=== PATIENT | male | born 1955 | race Caucasian/White ===

== ENCOUNTER 2019-06-20 15:01 | Inpatient (IN) | payer OTHER ==
[~2019-06-20] VITALS: Ht 177.8 cm; Wt 88.3 kg
[2019-06-20] MEDS ORDERED: NO HOME MEDS (15:30)
[2019-06-20] MEDS ORDERED: PEG 3350/Na sulf,bicarb,Cl/KCl oral sol 4 liter bottle PO ONE ×2 (15:40→16:40)
[2019-06-20] MEDS ORDERED: normal saline 1000ML IV soln IVB ONE (15:40)
[2019-06-20 16:08] LABS: PARTIAL THROMBOPLASTIN TIME 31 SECONDS (22-32)
[2019-06-20 16:09] LABS: ALANINE AMINOTRANSFERASE 28 U/L (12-78); ALBUMIN 2.8 G/DL (3.4-5.0); ALBUMIN/GLOBULIN RATIO 0.8 (1.1-1.5); ALKALINE PHOSPHATASE 107 IU/L (46-116); ANION GAP 6 (8-16); ASPARTATE AMINO TRANSFERASE 18 U/L (10-37); BILIRUBIN,TOTAL 1.1 MG/DL (0.1-1.0); BLOOD UREA NITROGEN 30 MG/DL (7-18); BUN/CREATININE RATIO 25.4 (5.4-32.0); CALCIUM 8.2 MG/DL (8.5-10.1); CHLORIDE 94 MMOL/L (99-107); CREATININE 1.18 MG/DL (0.60-1.10); GLUCOSE 117 MG/DL (70-104); POTASSIUM 3.6 MMOL/L (3.5-5.1); SODIUM 130 MMOL/L (135-145); TOTAL PROTEIN 6.3 G/DL (6.4-8.2); eGFR 62 ML/MIN
[2019-06-20] MEDS ORDERED: morphine 2 MG/ML inj. syringe IV PRN (16:40)
[2019-06-20] MEDS ORDERED: magnesium 4gm in 100ml NS 100 ML IV PRN (16:40)
[2019-06-20] MEDS ORDERED: magnesium 2GM in 50ml NS 50 ML IV PRN (16:40)
[2019-06-20] MEDS ORDERED: potassium Cl 20 mEq SR tablet PO PRN (16:40)
[2019-06-20] MEDS ORDERED: potassium CL 10mEq/100ml bag 100 ML IV PRN ×2 (16:40)
[2019-06-20] MEDS ORDERED: magnesium Cl slow-release 64mg tablet PO PRN (16:40)
[2019-06-20] MEDS ORDERED: acetaminophen 325mg tablet PO PRN ×2 (16:40)
[2019-06-20 17:50] VITALS: BP 151/88
--- NOTE | 2019-06-20 17:50 | NUR ---
Patient in room ED 6. I have received report from RYAN WALLACE and had the opportunity to ask questions and assume patient care.
--- NOTE | 2019-06-20 18:23 | NUR ---
Problems reprioritized. Patient report given, questions answered & plan of care reviewed with DEBRA WALLACE.
--- NOTE | 2019-06-20 18:29 | NUR ---
Patient in room ED 6. I have received report from Valentino WALLACE and had the opportunity to ask questions and assume patient care.
[2019-06-20] MEDS: normal saline 1000ml 1,000 ML IV SCH (18:57)
[2019-06-20] MEDS: K and/or MAG REPLACEMENT MC SCH (20:00)
[2019-06-20 20:25] LABS: BASOPHILS % (AUTO) 0.4 % (0-1); EOSINOPHILS # (AUTO) 0.1 X10'3 (0-0.9); EOSINOPHILS % (AUTO) 1.9 % (0-6); HEMATOCRIT 53.2 % (42.0-52.0); LYMPHOCYTES # (AUTO) 0.5 X10'3 (1.1-4.8); LYMPHOCYTES % (AUTO) 15.6 % (21-51); MEAN CORPUSCULAR HEMOGLOBIN 33.5 PG (27.0-31.0); MEAN CORPUSCULAR HGB CONC 34.4 g/dL (33.0-36.5); MEAN CORPUSCULAR VOLUME 97.4 FL (78-98); MEAN PLATELET VOLUME 8.3 FL (7.4-10.4); MONOCYTES # (AUTO) 0.9 X10'3 (0-0.9); MONOCYTES % (AUTO) 25.6 % (2-12); NEUTROPHILS % (AUTO) 56.5 % (42-75); PLATELET COUNT 445 X10'3 (140-440); RED BLOOD COUNT 5.46 X10'6 (4.70-6.10); RED CELL DISTRIBUTION WIDTH 12.6 % (11.5-14.5); WHITE BLOOD COUNT 3.5 X10'3 (4.5-11.0)
[2019-06-20 20:37] LABS: HEMOGLOBIN 18.3 g/dl (14.0-17.9)
--- NOTE | 2019-06-20 20:51 | NUR ---
Patient refusing IV fluids at this time.
[2019-06-20] MEDS ORDERED: temazepam 15mg capsule PO PRN (21:00)
[2019-06-20 21:02] LABS: TOTAL CELLS COUNTED 100
[2019-06-20 21:03] LABS: ANISOCYTOSIS 1+; PLATELET ESTIMATE INCREASED
[2019-06-20] MEDS: heparin, porcine 5000 units/ml vial SQ SCH (21:13)
[2019-06-20 22:00] VITALS: BP 150/87
[2019-06-20] MEDS: ondansetron/PF 4mg/2ml inj IV PRN (22:41)
[2019-06-21] VITALS (22 sets, daily range): BP systolic 105–173; BP diastolic 50–101
--- NOTE | 2019-06-21 00:07 | NUR ---
Patient has drank half the bowel prep at this time. Patient very uncomfortable and has only produced very little stool.
[2019-06-21] MEDS ORDERED: morphine 2 MG/ML inj. syringe IV PRN ×2 (01:10→18:15)
--- NOTE | 2019-06-21 01:32 | NUR ---
Received order to place NG tube. Patient refusing tube. Educated on the importance for NG tube. Patient states, "Leave me alone, I would rather just ."
--- NOTE | 2019-06-21 01:40 | NUR ---
Spoke with MD about patient refusing all care.
--- NOTE | 2019-06-21 01:49 | NUR ---
Patient states, "I am in worst shape then I came in." I offered pain medication but patient refusing. Educated on the importance of needing the test done and the NG placed. Patient cussing at staff. Patient states he wants no care or interventions and to be left alone to sleep.
[2019-06-21] MEDS: normal saline 1000ml 1,000 ML IV SCH ×2 (02:36→12:36)
--- NOTE | 2019-06-21 02:56 | NUR ---
Patient refusing to where tele monitor
--- NOTE | 2019-06-21 03:56 | NUR ---
Problems reprioritized. Patient report given, questions answered & plan of care reviewed with Jessica WALLACE.
[2019-06-21 05:16] LABS: BASOPHILS % (AUTO) 0.2 % (0-1); HEMATOCRIT 48.2 % (42.0-52.0); LYMPHOCYTES # (AUTO) 0.6 X10'3 (1.1-4.8); LYMPHOCYTES % (AUTO) 11.7 % (21-51); MEAN CORPUSCULAR HEMOGLOBIN 33.7 PG (27.0-31.0); MEAN CORPUSCULAR HGB CONC 35.2 g/dL (33.0-36.5); MEAN CORPUSCULAR VOLUME 95.8 FL (78-98); MEAN PLATELET VOLUME 7.8 FL (7.4-10.4); MONOCYTES % (AUTO) 21.2 % (2-12); NEUTROPHILS # (AUTO) 3.3 X10'3 (1.8-7.7); NEUTROPHILS % (AUTO) 65.9 % (42-75); PLATELET COUNT 473 X10'3 (140-440); RED BLOOD COUNT 5.03 X10'6 (4.70-6.10); RED CELL DISTRIBUTION WIDTH 12.8 % (11.5-14.5); WHITE BLOOD COUNT 4.9 X10'3 (4.5-11.0)
[2019-06-21 05:21] LABS: ALANINE AMINOTRANSFERASE 24 U/L (12-78); ALBUMIN 2.7 G/DL (3.4-5.0); ALBUMIN/GLOBULIN RATIO 0.8 (1.1-1.5); ALKALINE PHOSPHATASE 97 IU/L (46-116); ANION GAP 6 (8-16); ASPARTATE AMINO TRANSFERASE 19 U/L (10-37); BILIRUBIN,TOTAL 0.8 MG/DL (0.1-1.0); BLOOD UREA NITROGEN 27 MG/DL (7-18); BUN/CREATININE RATIO 24.3 (5.4-32.0); CALCIUM 8.2 MG/DL (8.5-10.1); CHLORIDE 93 MMOL/L (99-107); CREATININE 1.11 MG/DL (0.60-1.10); GLUCOSE 109 MG/DL (70-104); MAGNESIUM 2.3 MG/DL (1.5-2.4); POTASSIUM 3.2 MMOL/L (3.5-5.1); SODIUM 130 MMOL/L (135-145); TOTAL CARBON DIOXIDE 30.6 MMOL/L (24-32); TOTAL PROTEIN 6.2 G/DL (6.4-8.2); eGFR 66 ML/MIN
[2019-06-21 05:53] LABS: ANISOCYTOSIS 1+; PLATELET ESTIMATE INCREASED; TOTAL CELLS COUNTED 100
--- NOTE | 2019-06-21 06:01 | NUR ---
Problems reprioritized. Patient report given, questions answered & plan of care reviewed with dayshift RN.
--- NOTE | 2019-06-21 06:10 | NUR ---
Patient in room ORTHO 4010. I have received report from MADISON Lopez and had the opportunity to ask questions and assume patient care.
[2019-06-21] MEDS: potassium Cl 20 mEq SR tablet PO PRN ×2 (07:45→14:56)
[2019-06-21] MEDS: heparin, porcine 5000 units/ml vial SQ SCH ×2 (07:56→20:00)
[2019-06-21] MEDS: K and/or MAG REPLACEMENT MC SCH ×2 (08:00→20:00)
[2019-06-21] MEDS ORDERED: MIDAZolam 5mg/5ml vial ONE ×2 (08:14→08:52)
[2019-06-21] MEDS ORDERED: fentaNYL/PF 50MCG/1 ML 2ML syringe ONE ×2 (08:14→08:52)
--- NOTE | 2019-06-21 08:30 | NUR ---
Pt transported to colonoscopy via wheelchair.
--- NOTE | 2019-06-21 10:45 | NUR ---
Pt returned from colonoscopy with NG tube in place to left nare. Placement verified by xray prior to return to floor.
[2019-06-21] MEDS ORDERED: ceFOXitin 2GM-NS 100mL ADDvant 100 ML IV ONE (14:10)
[2019-06-21] MEDS ORDERED: cefotetan 2gm/isosm dext IVPB 50 ML IV ONE (14:35)
[2019-06-21] MEDS ORDERED: ceFOXitin sod/dextrose 2g/50ml 50 ML IV ONE (14:45)
--- NOTE | 2019-06-21 15:45 | NUR ---
Pt transported to OR on hospital bed. Belongings left in room 4010B.
[2019-06-21 15:57] LABS: PARTIAL THROMBOPLASTIN TIME 33 SECONDS (22-32)
[2019-06-21] MEDS ORDERED: clindamycin phosphate 150mg/ml inj. ONE (16:23)
[2019-06-21] MEDS ORDERED: gentamicin 40 MG/1 ML inj ONE (16:23)
[2019-06-21] MEDS ORDERED: sevoflurane 250ml liquid IH ONE (16:36)
[2019-06-21] MEDS ORDERED: famotidine/PF 10 mg/ml inj IV ONE (16:36)
[2019-06-21] MEDS ORDERED: midazolam 2 mg/2 ml injection ONE (16:44)
[2019-06-21] MEDS ORDERED: fentaNYL /PF 50mcg/ml 5ml ampule ONE (16:58)
[2019-06-21] MEDS ORDERED: dexamethasone sod phosphate 4mg/ml inj. ONE (17:02)
[2019-06-21] MEDS ORDERED: LIDOcaine 2% (20mg/ml) 5ml vial ONE (17:02)
[2019-06-21] MEDS ORDERED: ondansetron/PF 4mg/2ml inj ONE (17:02)
[2019-06-21] MEDS ORDERED: rocuronium 10mg/ml inj IV ONE ×2 (17:02→18:55)
[2019-06-21] MEDS ORDERED: propofol inj 20 ML IV ONE (17:02)
[2019-06-21] MEDS ORDERED: ceFOXitin 1000 MG inj ONE ×2 (17:02)
[2019-06-21] MEDS ORDERED: BUPIVAcaine/PF 2.5mg/ml (0.25%) 10ml vial ONE (17:12)
[2019-06-21] MEDS ORDERED: BUPIVACAINE liposomal/PF 13.3 MG/ML vial IM ONE (17:12)
[2019-06-21] MEDS ORDERED: ringers solution, lacted 1,000 ML IV SCH (18:13)
[2019-06-21] MEDS ORDERED: ondansetron/PF 4mg/2ml inj IV PRN (18:15)
[2019-06-21] MEDS ORDERED: proCHLORperazine 10 MG/2 ml inj IV PRN (18:15)
[2019-06-21] MEDS ORDERED: hydrALAZINE 20mg/ml inj. IV PRN (18:15)
[2019-06-21] MEDS ORDERED: morphine 4 MG/ML inj SYRINge IV PRN (18:15)
[2019-06-21] MEDS ORDERED: acetaminophen 1,000mg/100ml IV 100 ML IV PRN (18:15)
[2019-06-21] MEDS ORDERED: labetalol 20mg/4ml (5mg/ml) syringe IV PRN (18:15)
[2019-06-21] MEDS ORDERED: meperidine/PF 25mg/ml syringe IV PRN ×3 (18:15)
--- NOTE | 2019-06-21 18:25 | NUR ---
Problems reprioritized. Patient report given, questions answered & plan of care reviewed with MADISON Pritchard.
--- NOTE | 2019-06-21 18:25 | NUR ---
Patient in room ORTHO 4010. I have received report from MADISON Michel and had the opportunity to ask questions and assume patient care.
[2019-06-21] MEDS: propofol 1000mg/100ml bottle 100 ML IV SCH (18:51)
[2019-06-21] MEDS ORDERED: fentaNYL/PF 50MCG/1 ML 2ML syringe IV PRN (18:55)
[2019-06-21] MEDS ORDERED: morphine 10mg/ml inj. ONE (19:49)
[2019-06-21] MEDS ORDERED: DOPamine/D5W 400mg/250ml bag IV ONE (19:50)
--- NOTE | 2019-06-21 20:00 | NUR ---
Received from OR via BED, accompanied by Anesthesiologist DOROTHY and report given by Anesthesiolgist. PT VENTILATED, ETT 23 AT THE LIP. RIJ CVL, L RADIAL ART LINE TRANSDUCED. CXR DONE FOR TUBE AND LINE PLACEMENT, ETT ADJUSTED TO 25 AT THE LIP. NGT TO WALL SX, WATERY LIGHT BROWN OUTPUT. LARGE ABD DSG WITH MEDIFIX TAPE, CDI. RAVEN DRAIN TO ABD FULL OF SEROSANG DRAINAGE. FC PATENT, SCDS ON. VSS. RODRIGUE CARMICHAEL FOR SEDATION, FENTANYL GTT ORDERED.
--- NOTE | 2019-06-21 20:34 | NUR ---
Patient in room CICU 2016. I have received report from MADISON Douglas from OR and had the opportunity to ask questions and assume patient care.
[2019-06-21 20:36] LABS: ABG BASE EXCESS 0.3 mmol/L (-2.0-3.0); ABG HCO3 24.5 mmol/L (22.0-26.0); ABG OXYGEN SATURATION 97.2 % (95-98); ABG PCO2 (T) 41.4 mmHg (35.0-45.0); ABG PH (T) 7.398 (7.350-7.450); ABG PO2 (T) 104.5 mmHg (83-108); FCOHb 0.5 % (0.5-1.5); FMetHb 0.6 % (0.3-1.12); FO2Hb 96.1 % (94-100); PATIENT TEMPERATURE 38.7; PEEP 5 cm H2O; RESPIRATORY RATE 14 b/min; TIDAL VOLUME 600 mL; TOTAL HEMOGLOBIN 16.6 G/dl (14.0-17.9)
--- NOTE | 2019-06-21 20:40 | NUR ---
Report GIVEN to receiving nurse. Transferred CARE TO GUERO WALLACE. Belongings WERE BROUGHT FROM PTS ORTHO ROOM. NO CHANGES, PT STABLE. Special Issues communicated to receiving nurse.
[2019-06-21] MEDS: FENTANYL-0.9 % NACL/PF 100 ML IV PRN (20:41)
--- NOTE | 2019-06-21 21:00 | NUR ---
Laura France, AFTERNOON BABYSITTER at bedside. Made aware of patients low urine output. Will change fluid order and order additional lab tests.
[2019-06-21] MEDS: ringers solution, lacted 1,000 ML IV SCH (21:40)
[2019-06-21 22:20] LABS: ALBUMIN 1.9 G/DL (3.4-5.0); ANION GAP 6 (8-16); BLOOD UREA NITROGEN 26 MG/DL (7-18); BUN/CREATININE RATIO 18.6 (5.4-32.0); CALCIUM 7.3 MG/DL (8.5-10.1); CHLORIDE 98 MMOL/L (99-107); CLARITY,URINE CLOUDY (Clear); COLOR,URINE YELLOW (Yellow); GLUCOSE 111 MG/DL (70-104); GLUCOSE, URINE NEGATIVE (Neg); KETONES,URINE 15 mg/dl (Neg); LEUKOCYTE ESTERASE ,URINE NEGATIVE (Neg); NITRITES, URINE NEGATIVE (Neg); OCCULT BLOOD,URINE LARGE (Neg); POTASSIUM 3.4 MMOL/L (3.5-5.1); PROTEIN,URINE TRACE mg/dl (Neg); SODIUM 133 MMOL/L (135-145); TOTAL CARBON DIOXIDE 28.8 MMOL/L (24-32); eGFR 51 ML/MIN
[2019-06-21 22:27] LABS: UA COLLECTION TYPE NON-SPECIFIED
[2019-06-21 22:34] LABS: BACTERIA,URINE FEW /HPF (Neg); CAL OXALATE CRYSTALS 1+ /HPF (NEGATIVE); RBC,URINE 20-50 /HPF (0-2); SQUAMOUS EPITHELIAL CELL,UR FEW /LPF (FEW); WBC,URINE 0-4 /HPF (0-4)
[2019-06-21] MEDS: potassium Cl 20mEq/100mL bag 100 ML IV PRN (23:37)
--- NOTE | 2019-06-21 23:45 | NUR ---
Low urine output. Laura France NP made aware. She will place order for Albumin.
[2019-06-21] MEDS: piperacillin/tazo 3.375gm/50ml 50 ML IV SCH (23:47)
[2019-06-22] VITALS (24 sets, daily range): BP systolic 75–127; BP diastolic 42–88
[2019-06-22] MEDS: albumin (Human) 5% 250ml 250 ML IV ONE ×2 (00:15→01:29)
[2019-06-22] MEDS: propofol 1000mg/100ml bottle 100 ML IV SCH ×2 (00:16→13:33)
[2019-06-22] MEDS: potassium Cl 20mEq/100mL bag 100 ML IV PRN (00:55)
[2019-06-22 02:59] LABS: BASOPHILS % (AUTO) 0.1 % (0-1); EOSINOPHILS % (AUTO) 0.1 % (0-6); HEMATOCRIT 45.3 % (42.0-52.0); HEMOGLOBIN 15.5 g/dl (14.0-17.9); LYMPHOCYTES # (AUTO) 0.4 X10'3 (1.1-4.8); LYMPHOCYTES % (AUTO) 5.8 % (21-51); MEAN CORPUSCULAR HEMOGLOBIN 33.2 PG (27.0-31.0); MEAN CORPUSCULAR HGB CONC 34.2 g/dL (33.0-36.5); MEAN CORPUSCULAR VOLUME 96.9 FL (78-98); MEAN PLATELET VOLUME 7.7 FL (7.4-10.4); MONOCYTES # (AUTO) 0.4 X10'3 (0-0.9); MONOCYTES % (AUTO) 5.8 % (2-12); NEUTROPHILS # (AUTO) 6.4 X10'3 (1.8-7.7); NEUTROPHILS % (AUTO) 88.2 % (42-75); PLATELET COUNT 343 X10'3 (140-440); RED BLOOD COUNT 4.67 X10'6 (4.70-6.10); RED CELL DISTRIBUTION WIDTH 12.6 % (11.5-14.5); WHITE BLOOD COUNT 7.2 X10'3 (4.5-11.0)
[2019-06-22 03:16] LABS: ALANINE AMINOTRANSFERASE 18 U/L (12-78); ALBUMIN/GLOBULIN RATIO 0.8 (1.1-1.5); ALKALINE PHOSPHATASE 64 IU/L (46-116); ANION GAP 7 (8-16); BILIRUBIN,TOTAL 0.7 MG/DL (0.1-1.0); BLOOD UREA NITROGEN 29 MG/DL (7-18); BUN/CREATININE RATIO 17.1 (5.4-32.0); CALCIUM 7.2 MG/DL (8.5-10.1); CHLORIDE 100 MMOL/L (99-107); GLUCOSE 110 MG/DL (70-104); POTASSIUM 4.4 MMOL/L (3.5-5.1); SODIUM 134 MMOL/L (135-145); TOTAL CARBON DIOXIDE 26.6 MMOL/L (24-32); TOTAL PROTEIN 4.6 G/DL (6.4-8.2); TRIGLYCERIDES 101 MG/DL (20-135); eGFR 41 ML/MIN
[2019-06-22 03:21] LABS: ABG BASE EXCESS 0.1 mmol/L (-2.0-3.0); ABG OXYGEN SATURATION 98.5 % (95-98); ABG PCO2 (T) 38.1 mmHg (35.0-45.0); ABG PO2 (T) 119.1 mmHg (83-108); FCOHb 0.5 % (0.5-1.5); FMetHb 0.5 % (0.3-1.12); FO2Hb 97.5 % (94-100); PATIENT TEMPERATURE 37.6; PEEP 5 cm H2O; RESPIRATORY RATE 14 b/min; TIDAL VOLUME 600 mL; TOTAL HEMOGLOBIN 15.8 G/dl (14.0-17.9)
[2019-06-22 03:41] LABS: ASPARTATE AMINO TRANSFERASE 18 U/L (10-37)
--- NOTE | 2019-06-22 04:00 | NUR ---
Enoc France NP spoke with Dr. Fernandez re patients low urine output. Per Dr. Fernandez no change in orders at this time. Current lab values reviewed by MD and provider. Will continue to monitor.
[2019-06-22 04:01] LABS: ANISOCYTOSIS 1+; PLATELET ESTIMATE NORMAL; TOTAL CELLS COUNTED 100
[2019-06-22] MEDS: ringers solution, lacted 1,000 ML IV SCH ×3 (05:44→20:25)
--- NOTE | 2019-06-22 06:00 | NUR ---
[id number]: Patient able to wake up with light sedation, following commands, nods head yes and no. Surgical dressing remains clean dry and intact throughout shift. RAVEN patent and draining.
--- NOTE | 2019-06-22 06:38 | NUR ---
Problems reprioritized. Patient report given, questions answered & plan of care reviewed with MADISON Medina.
--- NOTE | 2019-06-22 06:49 | NUR ---
[facility] I have received report from Fatemeh WALLACE and had the opportunity to ask questions and assume patient care. Addendum: 06/22/19 at 0649 by Carol Garcia RN Amended: Links added.
[2019-06-22] MEDS: pantoprazole 40 MG vial IV SCH (07:25)
[2019-06-22] MEDS: lisinopril 10 MG tablet PO SCH (07:25)
[2019-06-22] MEDS: piperacillin/tazo 3.375gm/50ml 50 ML IV SCH ×2 (07:28→15:55)
[2019-06-22] MEDS: K and/or MAG REPLACEMENT MC SCH ×2 (07:33→20:00)
[2019-06-22] MEDS: FENTANYL-0.9 % NACL/PF 100 ML IV PRN ×2 (07:58→23:19)
--- NOTE | 2019-06-22 09:32 | NUR ---
ETT advanced 3 cm by RT Veronica per Dr. Fernandez's request.
--- NOTE | 2019-06-22 10:36 | NUR ---
Urine for cx and blood for PSA obtained per Dr. Fernandez's order.
--- NOTE | 2019-06-22 13:13 | NUR ---
Initial: Pt intubated admit DX bowel obstruction r/t sigmoid colon mass, hyponatremia hx N/V. Pt NPO s/p ex lap, Right, Left, and Sigmoid colectomy w/ resection of sigmoid mass. DX large bowel obstruction w/ cecal bascule, cecal ischemia, and SBO per surgeon. To remain NPO for return to OR per RN. L NG remains to suction 300ml output so far. LBM 06/19. Receiving electrolyte replacements per protocol. Will monitor for nutrition support needs post-op; if to remain intubated and prolonged NPO may benefit from PN post-op. EN recs below; current wt pt stated and will require scaled wt for accurate nutrition support recs. Will continue to monitor. Rec: 1. IF prolonged NPO without EN; may benefit from PN post-op 2. IF EN post-op; Vital HP at 95ml/hr goal; adjust pending scaled wt results 3. IF EN; PALB Q /; daily wts 4. upon extubation; advance diet as medically indicated to low-residue Addendum: 06/22/19 at [address] Amended: Links added.
--- NOTE | 2019-06-22 14:30 | NUR ---
Pt. awake and alert. Nodding "yes" to pain. Wants to write and communicate. BP low, 70s-80s systolic. Notified charge nurse and Sophia NAVARRO as RN is not able to adequately sedate pt. or provide adequate pain control.
[2019-06-22] MEDS ORDERED: FENTANYL-0.9 % NACL/PF 100 ML IV PRN (14:39)
[2019-06-22] MEDS ORDERED: normal saline 1000ml 1,000 ML IV ONE (14:40)
[2019-06-22] MEDS ORDERED: acetaminophen 1,000mg/100ml IV 100 ML IV ONE (14:50)
[2019-06-22] MEDS: midazolam 100mg in NS 100ml 100 ML IV PRN (15:10)
--- NOTE | 2019-06-22 15:18 | NUR ---
IV Tylenol and 1L fluid bolus infusing for temp 38.1, CVP of 3, and low BP. Propofol dc'd. Versed infusing now.
--- NOTE | 2019-06-22 17:32 | NUR ---
Pt. is third case tomorrow for OR per Nursing Supervisoe Ashlee.
--- NOTE | 2019-06-22 18:20 | NUR ---
Patient in room CICU 2016. I have received report from MADISON Medina and had the opportunity to ask questions and assume patient care.
--- NOTE | 2019-06-22 19:30 | NUR ---
Addressed patients hypotension with Enoc France NP. CVP 7 BP running 79/51 (61) via art line. At times Map in the 50's. Patient received 1 liter fluid bolus at 1500 today. Order for Stat BMP. Will continue to monitor.
[2019-06-22 21:00] LABS: ALBUMIN 1.4 G/DL (3.4-5.0); ANION GAP 6 (8-16); BLOOD UREA NITROGEN 29 MG/DL (7-18); BUN/CREATININE RATIO 18.1 (5.4-32.0); CALCIUM 7.1 MG/DL (8.5-10.1); CHLORIDE 102 MMOL/L (99-107); GLUCOSE 124 MG/DL (70-104); POTASSIUM 4.1 MMOL/L (3.5-5.1); SODIUM 135 MMOL/L (135-145); TOTAL CARBON DIOXIDE 26.9 MMOL/L (24-32); eGFR 43 ML/MIN
[2019-06-22] MEDS: mineral oil/petrolatum ophthal oint EACHEYE SCH (21:40)
[2019-06-23] VITALS (23 sets, daily range): BP systolic 80–118; BP diastolic 46–63
[2019-06-23] MEDS: piperacillin/tazo 3.375gm/50ml 50 ML IV SCH ×3 (00:10→16:06)
[2019-06-23] MEDS: mineral oil/petrolatum ophthal oint EACHEYE SCH ×4 (02:00→20:05)
[2019-06-23 03:15] LABS: ABG BASE EXCESS 1.3 mmol/L (-2.0-3.0); ABG HCO3 24.9 mmol/L (22.0-26.0); ABG OXYGEN SATURATION 97.9 % (95-98); ABG PCO2 (T) 37.7 mmHg (35.0-45.0); ABG PH (T) 7.441 (7.350-7.450); FCOHb 0.2 % (0.5-1.5); FMetHb 0.3 % (0.3-1.12); FO2Hb 97.4 % (94-100); PATIENT TEMPERATURE 37.9; PEEP 5 cm H2O; RESPIRATORY RATE 14 b/min; TIDAL VOLUME 600 mL; TOTAL HEMOGLOBIN 14.1 G/dl (14.0-17.9)
[2019-06-23 03:35] LABS: BASOPHILS % (AUTO) 0 % (0-1); EOSINOPHILS % (AUTO) 0.2 % (0-6); HEMOGLOBIN 13.5 g/dl (14.0-17.9); LYMPHOCYTES # (AUTO) 0.4 X10'3 (1.1-4.8); LYMPHOCYTES % (AUTO) 5.2 % (21-51); MEAN CORPUSCULAR HEMOGLOBIN 33.1 PG (27.0-31.0); MEAN CORPUSCULAR HGB CONC 33.8 g/dL (33.0-36.5); MEAN CORPUSCULAR VOLUME 97.9 FL (78-98); MEAN PLATELET VOLUME 8.1 FL (7.4-10.4); MONOCYTES # (AUTO) 0.6 X10'3 (0-0.9); MONOCYTES % (AUTO) 9.5 % (2-12); NEUTROPHILS # (AUTO) 5.8 X10'3 (1.8-7.7); NEUTROPHILS % (AUTO) 85.1 % (42-75); PLATELET COUNT 308 X10'3 (140-440); RED BLOOD COUNT 4.09 X10'6 (4.70-6.10); RED CELL DISTRIBUTION WIDTH 12.9 % (11.5-14.5); WHITE BLOOD COUNT 6.9 X10'3 (4.5-11.0)
[2019-06-23 03:54] LABS: ALANINE AMINOTRANSFERASE 15 U/L (12-78); ALBUMIN 1.4 G/DL (3.4-5.0); ALBUMIN/GLOBULIN RATIO 0.5 (1.1-1.5); ALKALINE PHOSPHATASE 59 IU/L (46-116); ANION GAP 5 (8-16); ASPARTATE AMINO TRANSFERASE 17 U/L (10-37); BILIRUBIN,TOTAL 0.5 MG/DL (0.1-1.0); BLOOD UREA NITROGEN 28 MG/DL (7-18); BUN/CREATININE RATIO 21.9 (5.4-32.0); CALCIUM 7.3 MG/DL (8.5-10.1); CHLORIDE 102 MMOL/L (99-107); CREATININE 1.28 MG/DL (0.60-1.10); GLUCOSE 119 MG/DL (70-104); MAGNESIUM 2.4 MG/DL (1.5-2.4); POTASSIUM 3.7 MMOL/L (3.5-5.1); SODIUM 135 MMOL/L (135-145); TOTAL CARBON DIOXIDE 28.1 MMOL/L (24-32); TOTAL PROTEIN 4.2 G/DL (6.4-8.2); eGFR 56 ML/MIN
[2019-06-23] MEDS: ringers solution, lacted 1,000 ML IV SCH ×3 (04:01→15:16)
[2019-06-23 04:21] LABS: ANISOCYTOSIS 1+; PLATELET ESTIMATE NORMAL; TOTAL CELLS COUNTED 100
--- NOTE | 2019-06-23 05:00 | NUR ---
Arterial line with flat waveform, attempted to reposition, unable to regain waveform. Line pulled, catheter tip intact. Pressure applied.
--- NOTE | 2019-06-23 06:29 | NUR ---
Problems reprioritized. Patient report given, questions answered & plan of care reviewed with MADISON Medina.
--- NOTE | 2019-06-23 06:33 | NUR ---
[facility] I have received report from Fatemeh WALLACE and had the opportunity to ask questions and assume patient care. Addendum: 06/23/19 at 0633 by Carol Garcia RN Amended: Links added.
[2019-06-23] MEDS: pantoprazole 40 MG vial IV SCH (07:56)
[2019-06-23] MEDS: K and/or MAG REPLACEMENT MC SCH ×2 (07:57→20:00)
[2019-06-23] MEDS: lisinopril 10 MG tablet PO SCH (07:57)
[2019-06-23] MEDS: heparin, porcine 5000 units/ml vial SQ SCH ×2 (07:57→20:05)
[2019-06-23] MEDS: midazolam 100mg in NS 100ml 100 ML IV PRN (10:41)
[2019-06-23] MEDS ORDERED: gentamicin 40 MG/1 ML inj ONE (11:24)
[2019-06-23] MEDS ORDERED: sevoflurane 250ml liquid IH ONE (11:25)
[2019-06-23] MEDS ORDERED: clindamycin phosphate 150mg/ml inj. ONE (11:25)
[2019-06-23] MEDS ORDERED: albumin (Human) 5% 250ml 250 ML IV ONE ×2 (11:49→12:12)
[2019-06-23] MEDS ORDERED: rocuronium 10mg/ml inj IV ONE ×2 (12:02→12:42)
[2019-06-23] MEDS ORDERED: fentaNYL /PF 50mcg/ml 5ml ampule ONE (12:03)
[2019-06-23] MEDS ORDERED: MIDAZolam 5mg/5ml vial ONE (12:03)
--- NOTE | 2019-06-23 14:30 | NUR ---
Back from OR.
--- NOTE | 2019-06-23 15:40 | NUR ---
Pt. has colostomy and mucous fistula present. RAVEN still present.
--- NOTE | 2019-06-23 15:57 | NUR ---
Dr. Fernandez notified of increased temp of 38.2. No new orders received.
[2019-06-23 16:35] LABS: ABG BASE EXCESS 1.8 mmol/L (-2.0-3.0); ABG HCO3 25.2 mmol/L (22.0-26.0); ABG OXYGEN SATURATION 96.1 % (95-98); ABG PCO2 (T) 37.2 mmHg (35.0-45.0); ABG PH (T) 7.452 (7.350-7.450); ABG PO2 (T) 84.1 mmHg (83-108); FCOHb 0.6 % (0.5-1.5); FMetHb 0.3 % (0.3-1.12); FO2Hb 95.2 % (94-100); TOTAL HEMOGLOBIN 14.1 G/dl (14.0-17.9)
[2019-06-23] MEDS: FENTANYL-0.9 % NACL/PF 100 ML IV PRN (16:48)
--- NOTE | 2019-06-23 18:11 | NUR ---
Problems reprioritized. Patient report given, questions answered & plan of care reviewed with Erna WALLACE.
--- NOTE | 2019-06-23 18:30 | NUR ---
Patient in room CICU 2016. I have received report from Carol WALLACE and had the opportunity to ask questions and assume patient care.
[2019-06-24] VITALS (24 sets, daily range): BP systolic 92–124; BP diastolic 50–70
[2019-06-24] MEDS: piperacillin/tazo 3.375gm/50ml 50 ML IV SCH ×4 (00:03→23:52)
[2019-06-24] MEDS: mineral oil/petrolatum ophthal oint EACHEYE SCH ×4 (02:40→19:25)
[2019-06-24 03:00] LABS: BASOPHILS % (AUTO) 0.2 % (0-1); EOSINOPHILS % (AUTO) 0.4 % (0-6); HEMATOCRIT 41.5 % (42.0-52.0); HEMOGLOBIN 13.8 g/dl (14.0-17.9); LYMPHOCYTES # (AUTO) 0.6 X10'3 (1.1-4.8); LYMPHOCYTES % (AUTO) 7.5 % (21-51); MEAN CORPUSCULAR HEMOGLOBIN 32.9 PG (27.0-31.0); MEAN CORPUSCULAR HGB CONC 33.3 g/dL (33.0-36.5); MEAN CORPUSCULAR VOLUME 98.7 FL (78-98); MEAN PLATELET VOLUME 8.1 FL (7.4-10.4); MONOCYTES # (AUTO) 0.8 X10'3 (0-0.9); MONOCYTES % (AUTO) 10.4 % (2-12); NEUTROPHILS % (AUTO) 81.5 % (42-75); PLATELET COUNT 272 X10'3 (140-440); RED BLOOD COUNT 4.21 X10'6 (4.70-6.10); RED CELL DISTRIBUTION WIDTH 13.1 % (11.5-14.5); WHITE BLOOD COUNT 7.3 X10'3 (4.5-11.0)
[2019-06-24 03:13] LABS: ALANINE AMINOTRANSFERASE 13 U/L (12-78); ALBUMIN 1.3 G/DL (3.4-5.0); ALBUMIN/GLOBULIN RATIO 0.5 (1.1-1.5); ALKALINE PHOSPHATASE 55 IU/L (46-116); ANION GAP 3 (8-16); ASPARTATE AMINO TRANSFERASE 18 U/L (10-37); BILIRUBIN,TOTAL 0.4 MG/DL (0.1-1.0); BLOOD UREA NITROGEN 21 MG/DL (7-18); BUN/CREATININE RATIO 19.1 (5.4-32.0); CALCIUM 7.3 MG/DL (8.5-10.1); CHLORIDE 105 MMOL/L (99-107); GLUCOSE 104 MG/DL (70-104); MAGNESIUM 2.4 MG/DL (1.5-2.4); POTASSIUM 3.7 MMOL/L (3.5-5.1); SODIUM 136 MMOL/L (135-145); TOTAL CARBON DIOXIDE 27.6 MMOL/L (24-32); TOTAL PROTEIN 4.1 G/DL (6.4-8.2); eGFR 67 ML/MIN
[2019-06-24 03:31] LABS: ABG BASE EXCESS 1.7 mmol/L (-2.0-3.0); ABG HCO3 24.8 mmol/L (22.0-26.0); ABG OXYGEN SATURATION 96.8 % (95-98); ABG PCO2 (T) 36.1 mmHg (35.0-45.0); ABG PH (T) 7.459 (7.350-7.450); ABG PO2 (T) 91.3 mmHg (83-108); FCOHb 0.3 % (0.5-1.5); FMetHb 0.2 % (0.3-1.12); FO2Hb 96.3 % (94-100); PATIENT TEMPERATURE 38.2; TOTAL HEMOGLOBIN 14.3 G/dl (14.0-17.9)
[2019-06-24 03:59] LABS: TOTAL CELLS COUNTED 100
[2019-06-24 04:00] LABS: PLATELET ESTIMATE NORMAL
[2019-06-24] MEDS: ringers solution, lacted 1,000 ML IV SCH ×4 (05:59→23:52)
--- NOTE | 2019-06-24 06:46 | NUR ---
[facility]. I have received report from Monique WALLACE and had the opportunity to ask questions and assume patient care. Addendum: 06/24/19 at 0646 by Carol Garcia RN Amended: Links added.
[2019-06-24] MEDS: pantoprazole 40 MG vial IV SCH (07:26)
[2019-06-24] MEDS: heparin, porcine 5000 units/ml vial SQ SCH ×2 (07:26→19:25)
[2019-06-24] MEDS: K and/or MAG REPLACEMENT MC SCH ×2 (07:27→19:19)
[2019-06-24] MEDS: lisinopril 10 MG tablet PO SCH (07:27)
--- NOTE | 2019-06-24 10:51 | NUR ---
WOC RN here to assess pt. as RN ordered a WOC consult for new ostomies as per protocol.
[2019-06-24 13:11] LABS: PSA, FREE 0.03 ng/mL
--- NOTE | 2019-06-24 13:19 | NUR ---
Dr. Cuellar in to see pt. PT order obtained.
--- NOTE | 2019-06-24 14:16 | NUR ---
Dr. Fernandez in to see pt.
--- NOTE | 2019-06-24 17:58 | NUR ---
Versed has been off since approx. 0730 this morning. Pt has not woken up. Does move all extremities. VSS.
[2019-06-24] MEDS: lactobacillus rhamnosus 10,000 MMU CELLS/CAPSULE PO SCH (19:20)
[2019-06-24] MEDS: FENTANYL-0.9 % NACL/PF 100 ML IV PRN (19:25)
[2019-06-25] VITALS (21 sets, daily range): BP systolic 94–148; BP diastolic 49–68
[2019-06-25] MEDS: mineral oil/petrolatum ophthal oint EACHEYE SCH ×4 (02:08→20:55)
[2019-06-25 02:47] LABS: BASOPHILS % (AUTO) 0.1 % (0-1); EOSINOPHILS # (AUTO) 0.1 X10'3 (0-0.9); EOSINOPHILS % (AUTO) 1.2 % (0-6); HEMATOCRIT 39.5 % (42.0-52.0); HEMOGLOBIN 13.3 g/dl (14.0-17.9); LYMPHOCYTES # (AUTO) 0.8 X10'3 (1.1-4.8); LYMPHOCYTES % (AUTO) 8.5 % (21-51); MEAN CORPUSCULAR HEMOGLOBIN 33.4 PG (27.0-31.0); MEAN CORPUSCULAR HGB CONC 33.8 g/dL (33.0-36.5); MEAN CORPUSCULAR VOLUME 98.8 FL (78-98); MEAN PLATELET VOLUME 8.2 FL (7.4-10.4); MONOCYTES # (AUTO) 0.9 X10'3 (0-0.9); NEUTROPHILS # (AUTO) 7.6 X10'3 (1.8-7.7); NEUTROPHILS % (AUTO) 80.2 % (42-75); PLATELET COUNT 303 X10'3 (140-440); RED CELL DISTRIBUTION WIDTH 13.3 % (11.5-14.5); WHITE BLOOD COUNT 9.4 X10'3 (4.5-11.0)
[2019-06-25 03:03] LABS: ALANINE AMINOTRANSFERASE 14 U/L (12-78); ALBUMIN 1.1 G/DL (3.4-5.0); ALBUMIN/GLOBULIN RATIO 0.3 (1.1-1.5); ALKALINE PHOSPHATASE 59 IU/L (46-116); ANION GAP 7 (8-16); ASPARTATE AMINO TRANSFERASE 21 U/L (10-37); BILIRUBIN,TOTAL 0.4 MG/DL (0.1-1.0); BLOOD UREA NITROGEN 25 MG/DL (7-18); BUN/CREATININE RATIO 25.5 (5.4-32.0); CALCIUM 7.3 MG/DL (8.5-10.1); CHLORIDE 105 MMOL/L (99-107); CREATININE 0.98 MG/DL (0.60-1.10); GLUCOSE 102 MG/DL (70-104); MAGNESIUM 2.4 MG/DL (1.5-2.4); POTASSIUM 3.3 MMOL/L (3.5-5.1); SODIUM 138 MMOL/L (135-145); TOTAL CARBON DIOXIDE 25.9 MMOL/L (24-32); TOTAL PROTEIN 4.3 G/DL (6.4-8.2); eGFR 77 ML/MIN
[2019-06-25 03:26] LABS: ABG BASE EXCESS 0.4 mmol/L (-2.0-3.0); ABG HCO3 23.5 mmol/L (22.0-26.0); ABG OXYGEN SATURATION 97.3 % (95-98); ABG PH (T) 7.458 (7.350-7.450); ABG PO2 (T) 96.1 mmHg (83-108); FCOHb 0.3 % (0.5-1.5); FMetHb 0.1 % (0.3-1.12); FO2Hb 96.9 % (94-100); PATIENT TEMPERATURE 37.5; TOTAL HEMOGLOBIN 13.8 G/dl (14.0-17.9)
[2019-06-25] MEDS: potassium Cl 20mEq/100mL bag 100 ML IV PRN ×4 (03:41→23:19)
[2019-06-25] MEDS: heparin, porcine 5000 units/ml vial SQ SCH ×2 (07:33→20:56)
[2019-06-25] MEDS: pantoprazole 40 MG vial IV SCH (07:34)
[2019-06-25] MEDS: lactobacillus rhamnosus 10,000 MMU CELLS/CAPSULE PO SCH ×2 (07:34→19:43)
[2019-06-25] MEDS: piperacillin/tazo 3.375gm/50ml 50 ML IV SCH ×3 (07:34→23:20)
[2019-06-25] MEDS: lisinopril 10 MG tablet PO SCH (07:34)
[2019-06-25] MEDS: K and/or MAG REPLACEMENT MC SCH ×2 (07:43→19:44)
[2019-06-25] MEDS: ringers solution, lacted 1,000 ML IV SCH ×2 (11:11→20:54)
--- NOTE | 2019-06-25 12:06 | NUR ---
Pt worked with pt and he is in a sitting position in his bed. Also, unable to draw blood from his central line. Lab notified.
[2019-06-25] MEDS ORDERED: furosemide 40mg/4ml inj IV ONE (13:30)
--- NOTE | 2019-06-25 15:27 | NUR ---
TPN consult. Patient intubated, sedated, has hypoactive bowel sounds, no flatus, no BM s/p s/p ex lap, Right, Left, and Sigmoid colectomy w/ resection of sigmoid mass d/t large bowel obstruction w/ cecal bascule, cecal ischemia, and SBO per surgeon. Pending PICC line. Current weight pt stated at 100 kg, spoke with bedside RN and obtained bedscale weight at 109.7 kg including pillows and blankets estimated actual weight is 105 kg, BMI 33; will use IBW for estimated nutrition needs, IBW is 75.45 kg. Discussed TPN recommendations with clinical pharmacist. Noted that patient had lower potassium of 3.3, received IV prn replacement, potassium now at 5.5, will monitor. Patient is receiving relistor to encourage return of bowel function. Recommend: 1. When PICC line placed recommend 2:1 TPN using Clinimix E 5/20 at 85 ml/hr goal will provide total volume 2040 ml, 1795 cals, 102 g protein, and 2.69 mg/kg/min CHO loading. This will meet patient's energy needs in combination with lipids however will not meet patient's protein needs without overfeeding on vent with high dextrose TPN formula. 2. Additional separate 20% intralipids at 7 ml/hr for 12 hours daily for total additional 84 ml per day will provide 16.8 grams and 168 calories 3. TG/prealbumin q sunday/ 4. When bowel function returns would benefit from enteral nutrition to maintain gut integrity. IF to provide enteral nutrition support recommend Vital HP at 95ml/hr goal 5. When extubated; advance diet as medically indicated to low-residue Addendum: 06/25/19 at [address] Amended: Links added.
--- NOTE | 2019-06-25 15:29 | NUR ---
several attempts have been made today and 06/23 for sbt....pt goes isaías will continue to make these attempts as pt tolerates Addendum: 06/25/19 at 1530 by Mariaelena Whitman RT Amended: Links added.
--- NOTE | 2019-06-25 15:29 | NUR ---
[facility] LINE INFORMATION: REF: [id number] LOT: [id number] EXP: 10/20/2019
[2019-06-25] MEDS ORDERED: Dextrose 10%-water IV solution 1,000 ML IV PRN (15:34)
[2019-06-25] MEDS: methylnaltrexone br 12mg/0.6ml inj***SubQ only SQ SCH (16:29)
[2019-06-25 17:05] LABS: ALANINE AMINOTRANSFERASE 14 U/L (12-78); ALBUMIN 1.1 G/DL (3.4-5.0); ALBUMIN/GLOBULIN RATIO 0.4 (1.1-1.5); ALKALINE PHOSPHATASE 55 IU/L (46-116); ANION GAP 3 (8-16); ASPARTATE AMINO TRANSFERASE 21 U/L (10-37); BILIRUBIN,TOTAL 0.4 MG/DL (0.1-1.0); BLOOD UREA NITROGEN 24 MG/DL (7-18); BUN/CREATININE RATIO 23.8 (5.4-32.0); CALCIUM 7.3 MG/DL (8.5-10.1); CHLORIDE 107 MMOL/L (99-107); CREATININE 1.01 MG/DL (0.60-1.10); GLUCOSE 94 MG/DL (70-104); MAGNESIUM 2.4 MG/DL (1.5-2.4); PHOSPHORUS 3.1 MG/DL (2.3-4.5); POTASSIUM 3.4 MMOL/L (3.5-5.1); PREALBUMIN 3.1 MG/DL (19-36); SODIUM 139 MMOL/L (135-145); TOTAL CARBON DIOXIDE 28.9 MMOL/L (24-32); TOTAL PROTEIN 4.2 G/DL (6.4-8.2); TRIGLYCERIDES 302 MG/DL (20-135); eGFR 74 ML/MIN
[2019-06-25] MEDS ORDERED: albuterol 2.5 MG/3 ML nebule NEB PRN (20:30)
[2019-06-25] MEDS: FENTANYL-0.9 % NACL/PF 100 ML IV PRN (20:54)
[2019-06-25] MEDS: furosemide 40mg/4ml inj IV SCH (20:55)
[2019-06-25] MEDS: fat emulsion IV bag 250 ML IV SCH (20:56)
[2019-06-25] MEDS ORDERED: Trace element-5 inj. 1 ML in AA 5%/CALCIUM/LYTES/DEXT 20% 2,000 ML IV SCH (21:00)
[2019-06-25] MEDS: ipratropium/albuterol 3ml nebule NEB SCH (23:59)
[2019-06-26] VITALS (24 sets, daily range): BP systolic 101–154; BP diastolic 45–68
[2019-06-26] MEDS: mineral oil/petrolatum ophthal oint EACHEYE SCH ×4 (02:30→19:58)
[2019-06-26] MEDS: ringers solution, lacted 1,000 ML IV SCH (02:30)
[2019-06-26 02:42] LABS: BASOPHILS % (AUTO) 0.4 % (0-1); EOSINOPHILS # (AUTO) 0.1 X10'3 (0-0.9); EOSINOPHILS % (AUTO) 0.8 % (0-6); HEMATOCRIT 37.8 % (42.0-52.0); HEMOGLOBIN 12.7 g/dl (14.0-17.9); LYMPHOCYTES # (AUTO) 0.8 X10'3 (1.1-4.8); MEAN CORPUSCULAR HEMOGLOBIN 33.1 PG (27.0-31.0); MEAN CORPUSCULAR HGB CONC 33.6 g/dL (33.0-36.5); MEAN CORPUSCULAR VOLUME 98.6 FL (78-98); MONOCYTES # (AUTO) 0.6 X10'3 (0-0.9); MONOCYTES % (AUTO) 7.6 % (2-12); NEUTROPHILS # (AUTO) 6.9 X10'3 (1.8-7.7); NEUTROPHILS % (AUTO) 82.2 % (42-75); PLATELET COUNT 290 X10'3 (140-440); RED BLOOD COUNT 3.83 X10'6 (4.70-6.10); RED CELL DISTRIBUTION WIDTH 13.5 % (11.5-14.5); WHITE BLOOD COUNT 8.4 X10'3 (4.5-11.0)
[2019-06-26 02:56] LABS: ALANINE AMINOTRANSFERASE 16 U/L (12-78); ALBUMIN 1.1 G/DL (3.4-5.0); ALBUMIN/GLOBULIN RATIO 0.3 (1.1-1.5); ALKALINE PHOSPHATASE 60 IU/L (46-116); ANION GAP 5 (8-16); ASPARTATE AMINO TRANSFERASE 23 U/L (10-37); BILIRUBIN,TOTAL 0.4 MG/DL (0.1-1.0); BLOOD UREA NITROGEN 24 MG/DL (7-18); BUN/CREATININE RATIO 21.8 (5.4-32.0); CALCIUM 7.4 MG/DL (8.5-10.1); CHLORIDE 105 MMOL/L (99-107); GLUCOSE 124 MG/DL (70-104); MAGNESIUM 2.1 MG/DL (1.5-2.4); PHOSPHORUS 3.5 MG/DL (2.3-4.5); POTASSIUM 3.3 MMOL/L (3.5-5.1); PREALBUMIN 3.9 MG/DL (19-36); SODIUM 140 MMOL/L (135-145); TOTAL CARBON DIOXIDE 30.4 MMOL/L (24-32); TOTAL PROTEIN 4.5 G/DL (6.4-8.2); TRIGLYCERIDES 346 MG/DL (20-135); eGFR 67 ML/MIN
[2019-06-26] MEDS: potassium Cl 20mEq/100mL bag 100 ML IV PRN ×6 (03:08→22:30)
[2019-06-26 03:34] LABS: NUCLEATED RED BLOOD CELLS 1 /100WBC (0-0); TOTAL CELLS COUNTED 100
[2019-06-26 03:35] LABS: PLATELET ESTIMATE NORMAL
[2019-06-26] MEDS: ipratropium/albuterol 3ml nebule NEB SCH ×3 (03:39→11:42)
[2019-06-26 04:45] LABS: ABG BASE EXCESS 1.7 mmol/L (-2.0-3.0); ABG HCO3 24.4 mmol/L (22.0-26.0); ABG OXYGEN SATURATION 96.2 % (95-98); ABG PCO2 (T) 33.1 mmHg (35.0-45.0); ABG PH (T) 7.487 (7.350-7.450); FCOHb 0.3 % (0.5-1.5); FMetHb 0.1 % (0.3-1.12); FO2Hb 95.8 % (94-100); PATIENT TEMPERATURE 37.4; PEEP 5 cm H2O; RESPIRATORY RATE 14 b/min; TIDAL VOLUME 600 mL; TOTAL HEMOGLOBIN 13.3 G/dl (14.0-17.9)
[2019-06-26] MEDS: lisinopril 10 MG tablet PO SCH (07:16)
[2019-06-26] MEDS: lactobacillus rhamnosus 10,000 MMU CELLS/CAPSULE PO SCH ×2 (07:17→19:58)
[2019-06-26] MEDS: heparin, porcine 5000 units/ml vial SQ SCH ×2 (07:17→20:15)
[2019-06-26] MEDS: furosemide 40mg/4ml inj IV SCH ×3 (07:17→20:15)
[2019-06-26] MEDS: piperacillin/tazo 3.375gm/50ml 50 ML IV SCH ×3 (07:17→23:32)
[2019-06-26] MEDS: pantoprazole 40 MG vial IV SCH (07:17)
[2019-06-26] MEDS: K and/or MAG REPLACEMENT MC SCH ×2 (07:18→19:58)
[2019-06-26] MEDS: albumin (human) 25% 100ml IV 200 ML IV SCH ×2 (11:27→18:49)
--- NOTE | 2019-06-26 11:44 | NUR ---
Blood gas and weaning measures being obtained.
[2019-06-26 12:06] LABS: ABG BASE EXCESS 3.7 mmol/L (-2.0-3.0); ABG HCO3 26.3 mmol/L (22.0-26.0); ABG OXYGEN SATURATION 97.4 % (95-98); ABG PCO2 (T) 33.2 mmHg (35.0-45.0); ABG PH (T) 7.516 (7.350-7.450); ABG PO2 (T) 90.9 mmHg (83-108); FCOHb 0.3 % (0.5-1.5); FMetHb 0.1 % (0.3-1.12); PEEP 5 cm H2O; TOTAL HEMOGLOBIN 13.1 G/dl (14.0-17.9)
[2019-06-26] MEDS: MVI, adult No.4 with vit. K 10 ML in dextrose 5% water 500ml 500 ML IV SCH ×2 (13:18)
--- NOTE | 2019-06-26 14:24 | NUR ---
Pt extubated per MD order
[2019-06-26] MEDS: fat emulsion IV bag 250 ML IV SCH (20:15)
[2019-06-26] MEDS: Trace element-5 inj. 1 ML in AA 5%/CALCIUM/LYTES/DEXT 20% 2,000 ML IV SCH (20:15)
[2019-06-26] MEDS ORDERED: HYDROmorphone inj. 0.5 MG/0.5 ML DISP.SYRIN IV PRN (20:40)
[2019-06-27] VITALS (24 sets, daily range): BP systolic 107–145; BP diastolic 51–82
[2019-06-27] MEDS: mineral oil/petrolatum ophthal oint EACHEYE SCH (01:14)
[2019-06-27] MEDS: HYDROmorphone 1 mg/ml syringe IV PRN (01:38)
[2019-06-27] MEDS: albumin (human) 25% 100ml IV 200 ML IV SCH (01:39)
[2019-06-27 02:23] LABS: BASOPHILS % (AUTO) 0.5 % (0-1); EOSINOPHILS # (AUTO) 0.1 X10'3 (0-0.9); EOSINOPHILS % (AUTO) 1.5 % (0-6); HEMOGLOBIN 12.1 g/dl (14.0-17.9); LYMPHOCYTES # (AUTO) 0.9 X10'3 (1.1-4.8); MEAN CORPUSCULAR HEMOGLOBIN 33.5 PG (27.0-31.0); MEAN CORPUSCULAR HGB CONC 33.5 g/dL (33.0-36.5); MEAN CORPUSCULAR VOLUME 100.1 FL (78-98); MEAN PLATELET VOLUME 8.1 FL (7.4-10.4); MONOCYTES # (AUTO) 0.8 X10'3 (0-0.9); MONOCYTES % (AUTO) 8.6 % (2-12); NEUTROPHILS # (AUTO) 7.4 X10'3 (1.8-7.7); NEUTROPHILS % (AUTO) 79.4 % (42-75); PLATELET COUNT 305 X10'3 (140-440); RED CELL DISTRIBUTION WIDTH 13.4 % (11.5-14.5); WHITE BLOOD COUNT 9.3 X10'3 (4.5-11.0)
[2019-06-27 02:31] LABS: ALANINE AMINOTRANSFERASE 16 U/L (12-78); ALBUMIN 1.9 G/DL (3.4-5.0); ALBUMIN/GLOBULIN RATIO 0.6 (1.1-1.5); ALKALINE PHOSPHATASE 70 IU/L (46-116); ANION GAP 2 (8-16); ASPARTATE AMINO TRANSFERASE 25 U/L (10-37); BILIRUBIN,TOTAL 0.4 MG/DL (0.1-1.0); BLOOD UREA NITROGEN 18 MG/DL (7-18); BUN/CREATININE RATIO 17.1 (5.4-32.0); CALCIUM 7.5 MG/DL (8.5-10.1); CHLORIDE 105 MMOL/L (99-107); CREATININE 1.05 MG/DL (0.60-1.10); GLUCOSE 140 MG/DL (70-104); MAGNESIUM 1.9 MG/DL (1.5-2.4); PHOSPHORUS 3.5 MG/DL (2.3-4.5); POTASSIUM 3.4 MMOL/L (3.5-5.1); SODIUM 141 MMOL/L (135-145); TOTAL CARBON DIOXIDE 34.5 MMOL/L (24-32); TOTAL PROTEIN 5.1 G/DL (6.4-8.2); eGFR 71 ML/MIN
[2019-06-27] MEDS: potassium Cl 20mEq/100mL bag 100 ML IV PRN ×2 (02:38→03:50)
[2019-06-27 03:11] LABS: TOTAL CELLS COUNTED 100
[2019-06-27 03:12] LABS: PLATELET ESTIMATE NORMAL; TOXIC GRANULATION 3+
--- NOTE | 2019-06-27 06:30 | NUR ---
Patient in room CICU 2016. I have received report from Ashanti WALLACE and had the opportunity to ask questions and assume patient care.
[2019-06-27] MEDS: methylnaltrexone br 12mg/0.6ml inj***SubQ only SQ SCH (07:27)
[2019-06-27] MEDS: furosemide 40mg/4ml inj IV SCH ×3 (07:27→21:00)
[2019-06-27] MEDS: pantoprazole 40 MG vial IV SCH (07:27)
[2019-06-27] MEDS: piperacillin/tazo 3.375gm/50ml 50 ML IV SCH ×2 (07:29→15:10)
[2019-06-27] MEDS: heparin, porcine 5000 units/ml vial SQ SCH ×2 (07:34→20:00)
[2019-06-27] MEDS: lactobacillus rhamnosus 10,000 MMU CELLS/CAPSULE PO SCH ×2 (08:00→20:00)
[2019-06-27] MEDS: K and/or MAG REPLACEMENT MC SCH ×2 (08:00→20:00)
[2019-06-27] MEDS: lisinopril 10 MG tablet PO SCH (08:00)
[2019-06-27] MEDS: MVI, adult No.4 with vit. K 10 ML in dextrose 5% water 500ml 500 ML IV SCH ×2 (08:50)
--- NOTE | 2019-06-27 14:14 | NUR ---
Reassessment: patient is extubated. Receiving dilaudid prn, is also receiving relistor for bowel function. has hypoactive bowel sounds, no flatus, no BM s/p s/p ex lap, Right, Left, and Sigmoid colectomy w/ resection of sigmoid mass d/t large bowel obstruction w/ cecal bascule, cecal ischemia, and SBO per surgeon. Current weight documented as 98 kg however had obtained bedscale weight at 109.7 kg including pillows and blankets estimated actual weight is 105 kg, BMI 33; will use IBW for estimated nutrition needs, IBW is 75.45 kg. Discussed TPN recommendations with clinical pharmacist. Potassium 3.4 L, receiving prn replacement. Patient is receiving relistor to encourage return of bowel function. TG have trended up to 346 from 101 mg/dl, patient is receiving minimal intralipids to meet EFA needs, monitor TG and hold if above 400 mg/dl. Recommend: 1. When PICC line placed recommend 2:1 TPN using Clinimix E 5/20 at 85 ml/hr goal will provide total volume 2040 ml, 1795 cals, 102 g protein, and 2.69 mg/kg/min CHO loading. This will meet patient's energy needs in combination with lipids however will not meet patient's protein needs without overfeeding on vent with high dextrose TPN formula. 2. Additional separate 20% intralipids at 7 ml/hr for 12 hours daily for total additional 84 ml per day will provide 16.8 grams and 168 calories. Hold lipids if triglycerides above 400 mg/dl 3. TG/prealbumin q sunday/ 4. When bowel function returns would benefit diet advancement as medically indicated to low-residue Addendum: 06/27/19 at [address] Amended: Links added.
--- NOTE | 2019-06-27 14:35 | NUR ---
Dr. Cuellar notified that pt removed NG tube and is refusing to let us place a new NG tube and is more aggressive and confused. Pt has had 500cc output via NG tube during shift. Dr. Cuellar said, "Don't force pt to have a new NG tube, just keep him NPO."
[2019-06-27] MEDS: fat emulsion IV bag 250 ML IV SCH (21:00)
[2019-06-27] MEDS: Trace element-5 inj. 1 ML in AA 5%/CALCIUM/LYTES/DEXT 20% 2,000 ML IV SCH (21:06)
[2019-06-27] MEDS ORDERED: acetaminophen 1,000mg/100ml IV 100 ML IV ONE (21:40)
--- NOTE | 2019-06-27 21:47 | NUR ---
Pt has been refusing several meds only allowing the TPN to be replaced, He brandished his phone as a weapon. after some convincing he consented for me to do his assessment. He voiced concerns about people trying to kill him and he is worried about people trying to give him poison.
[2019-06-28] VITALS (22 sets, daily range): BP systolic 116–158; BP diastolic 69–87
[2019-06-28] MEDS ORDERED: nicotine 21mg patch - 24 hr TD ONE (01:35)
[2019-06-28] MEDS ORDERED: LORazepam 2 mg/ml vial IV ONE ×2 (01:35→05:35)
[2019-06-28] MEDS ORDERED: acetaminophen 1,000mg/100ml IV 100 ML IV SCH (02:00)
--- NOTE | 2019-06-28 02:40 | NUR ---
Pt has refused drawing of blood from his line and a blood sugar check.
[2019-06-28] MEDS: piperacillin/tazo 3.375gm/50ml 50 ML IV SCH ×3 (02:59→15:18)
[2019-06-28] MEDS: furosemide 40mg/4ml inj IV SCH ×4 (03:02→21:40)
[2019-06-28] MEDS: HYDROmorphone 1 mg/ml syringe IV PRN ×3 (04:42→23:04)
[2019-06-28 05:24] LABS: BASOPHILS # (AUTO) 0.1 X10'3 (0-0.2); BASOPHILS % (AUTO) 0.5 % (0-1); EOSINOPHILS # (AUTO) 0.1 X10'3 (0-0.9); EOSINOPHILS % (AUTO) 1.1 % (0-6); HEMOGLOBIN 13.6 g/dl (14.0-17.9); LYMPHOCYTES % (AUTO) 8.2 % (21-51); MEAN CORPUSCULAR HEMOGLOBIN 32.6 PG (27.0-31.0); MEAN CORPUSCULAR HGB CONC 33.1 g/dL (33.0-36.5); MEAN CORPUSCULAR VOLUME 98.4 FL (78-98); MEAN PLATELET VOLUME 8.1 FL (7.4-10.4); MONOCYTES % (AUTO) 8.1 % (2-12); NEUTROPHILS % (AUTO) 82.1 % (42-75); PLATELET COUNT 412 X10'3 (140-440); RED BLOOD COUNT 4.17 X10'6 (4.70-6.10); RED CELL DISTRIBUTION WIDTH 13.2 % (11.5-14.5); WHITE BLOOD COUNT 12.2 X10'3 (4.5-11.0)
[2019-06-28 05:50] LABS: ALANINE AMINOTRANSFERASE 23 U/L (12-78); ALBUMIN 2.3 G/DL (3.4-5.0); ALBUMIN/GLOBULIN RATIO 0.6 (1.1-1.5); ALKALINE PHOSPHATASE 101 IU/L (46-116); ANION GAP 6 (8-16); ASPARTATE AMINO TRANSFERASE 39 U/L (10-37); BILIRUBIN,TOTAL 0.6 MG/DL (0.1-1.0); BLOOD UREA NITROGEN 19 MG/DL (7-18); BUN/CREATININE RATIO 20.4 (5.4-32.0); CALCIUM 8.2 MG/DL (8.5-10.1); CHLORIDE 101 MMOL/L (99-107); CREATININE 0.93 MG/DL (0.60-1.10); GLUCOSE 145 MG/DL (70-104); POTASSIUM 3.2 MMOL/L (3.5-5.1); SODIUM 141 MMOL/L (135-145); TOTAL PROTEIN 6.1 G/DL (6.4-8.2); eGFR 81 ML/MIN
--- NOTE | 2019-06-28 06:13 | NUR ---
Patient in room CICU 2016. I have received report from Timur WALLACE and had the opportunity to ask questions and assume patient care.
[2019-06-28] MEDS: lisinopril 10 MG tablet PO SCH (08:00)
[2019-06-28] MEDS: K and/or MAG REPLACEMENT MC SCH ×2 (08:00→20:00)
[2019-06-28] MEDS: heparin, porcine 5000 units/ml vial SQ SCH ×2 (08:00→19:16)
[2019-06-28] MEDS: pantoprazole 40 MG vial IV SCH (08:00)
[2019-06-28] MEDS: lactobacillus rhamnosus 10,000 MMU CELLS/CAPSULE PO SCH ×2 (08:00→20:00)
[2019-06-28] MEDS: MVI, adult No.4 with vit. K 10 ML in dextrose 5% water 500ml 500 ML IV SCH ×2 (09:08)
[2019-06-28] MEDS: potassium Cl 20mEq/100mL bag 100 ML IV PRN ×2 (09:09→11:36)
--- NOTE | 2019-06-28 18:23 | NUR ---
Patient report given, questions answered & plan of care reviewed with Timur.
[2019-06-28] MEDS: Trace element-5 inj. 1 ML in AA 5%/CALCIUM/LYTES/DEXT 20% 2,000 ML IV SCH (20:06)
[2019-06-28] MEDS: fat emulsion IV bag 250 ML IV SCH (21:00)
[2019-06-29] VITALS (24 sets, daily range): BP systolic 95–134; BP diastolic 54–80
[2019-06-29 05:28] LABS: BASOPHILS # (AUTO) 0.1 X10'3 (0-0.2); BASOPHILS % (AUTO) 0.6 % (0-1); EOSINOPHILS # (AUTO) 0.2 X10'3 (0-0.9); EOSINOPHILS % (AUTO) 1.2 % (0-6); HEMOGLOBIN 14.1 g/dl (14.0-17.9); LYMPHOCYTES # (AUTO) 1.2 X10'3 (1.1-4.8); LYMPHOCYTES % (AUTO) 8.7 % (21-51); MEAN CORPUSCULAR HEMOGLOBIN 32.9 PG (27.0-31.0); MEAN CORPUSCULAR HGB CONC 33.5 g/dL (33.0-36.5); MEAN CORPUSCULAR VOLUME 98.4 FL (78-98); MEAN PLATELET VOLUME 8.3 FL (7.4-10.4); MONOCYTES % (AUTO) 6.9 % (2-12); NEUTROPHILS # (AUTO) 11.6 X10'3 (1.8-7.7); NEUTROPHILS % (AUTO) 82.6 % (42-75); PLATELET COUNT 522 X10'3 (140-440); RED BLOOD COUNT 4.27 X10'6 (4.70-6.10); RED CELL DISTRIBUTION WIDTH 13.4 % (11.5-14.5)
[2019-06-29 05:56] LABS: ALANINE AMINOTRANSFERASE 58 U/L (12-78); ALBUMIN 2.3 G/DL (3.4-5.0); ALBUMIN/GLOBULIN RATIO 0.5 (1.1-1.5); ALKALINE PHOSPHATASE 168 IU/L (46-116); ANION GAP 6 (8-16); ASPARTATE AMINO TRANSFERASE 71 U/L (10-37); BILIRUBIN,TOTAL 0.7 MG/DL (0.1-1.0); BLOOD UREA NITROGEN 25 MG/DL (7-18); BUN/CREATININE RATIO 24.8 (5.4-32.0); CALCIUM 8.5 MG/DL (8.5-10.1); CHLORIDE 99 MMOL/L (99-107); CREATININE 1.01 MG/DL (0.60-1.10); GLUCOSE 146 MG/DL (70-104); MAGNESIUM 2.2 MG/DL (1.5-2.4); PHOSPHORUS 3.1 MG/DL (2.3-4.5); POTASSIUM 3.3 MMOL/L (3.5-5.1); SODIUM 138 MMOL/L (135-145); TOTAL CARBON DIOXIDE 33.5 MMOL/L (24-32); TOTAL PROTEIN 6.5 G/DL (6.4-8.2); eGFR 74 ML/MIN
--- NOTE | 2019-06-29 06:30 | NUR ---
Patient in room CICU 2016. I have received report from MADISON DAVIS and had the opportunity to ask questions and assume patient care.
[2019-06-29 06:49] LABS: TOTAL CELLS COUNTED 100
[2019-06-29 06:50] LABS: PLATELET ESTIMATE INCREASED; POLYCHROMASIA FEW; TOXIC GRANULATION 1+
[2019-06-29 07:37] LABS: TRIGLYCERIDES 274 MG/DL (20-135)
[2019-06-29] MEDS: furosemide 40mg/4ml inj IV SCH ×3 (07:40→20:00)
[2019-06-29] MEDS: pantoprazole 40 MG vial IV SCH (07:44)
[2019-06-29] MEDS: piperacillin/tazo 3.375gm/50ml 50 ML IV SCH ×4 (07:45→23:59)
[2019-06-29] MEDS: potassium Cl 20mEq/100mL bag 100 ML IV PRN ×2 (07:47→09:36)
[2019-06-29] MEDS: heparin, porcine 5000 units/ml vial SQ SCH ×2 (07:50→20:00)
[2019-06-29] MEDS: lisinopril 10 MG tablet PO SCH (07:54)
[2019-06-29] MEDS: lactobacillus rhamnosus 10,000 MMU CELLS/CAPSULE PO SCH ×2 (07:54→20:00)
[2019-06-29] MEDS: methylnaltrexone br 12mg/0.6ml inj***SubQ only SQ SCH (07:54)
[2019-06-29] MEDS: K and/or MAG REPLACEMENT MC SCH ×2 (08:40→20:00)
[2019-06-29] MEDS: MVI, adult No.4 with vit. K 10 ML in dextrose 5% water 500ml 500 ML IV SCH ×2 (11:00)
--- NOTE | 2019-06-29 11:00 | NUR ---
[facility] CATHE[facility] CARE PER PROTOCOL. CHRISTIANO JONES.
[2019-06-29] MEDS: Trace element-5 inj. 1 ML in AA 5%/CALCIUM/LYTES/DEXT 20% 2,000 ML IV SCH (17:34)
--- NOTE | 2019-06-29 18:22 | NUR ---
Problems reprioritized. Patient report given, questions answered & plan of care reviewed with MADISON HENDRICKS. Addendum: 06/29/19 at 1823 by René Benton RN DISREGARD ABOVE, WRONG ACCOUNT.
--- NOTE | 2019-06-29 18:24 | NUR ---
Problems reprioritized. Patient report given, questions answered & plan of care reviewed with MADISON HENDRICKS.
[2019-06-29] MEDS: HYDROcodone/acetaminophen 5mg/325mg tablet PO PRN (20:00)
[2019-06-29] MEDS: fat emulsion IV bag 250 ML IV SCH (20:01)
[2019-06-29] MEDS ORDERED: glucagon, human recombinant 1mg kit SUBCUT PRN (20:20)
[2019-06-29] MEDS ORDERED: insulin Lispro (HumaLOG) vial - multi-dose SQ SCH (20:20)
[2019-06-29] MEDS ORDERED: dextrose ORAL solution 15 GM/59 ML bottle PO PRN ×2 (20:20)
[2019-06-29] MEDS ORDERED: MESSAGE TO PHARMACY PO ONE (20:20)
[2019-06-29] MEDS ORDERED: dextrose 50%-water 50ml dispensing syringe IV PRN ×2 (20:20)
[2019-06-29] MEDS: HYDROmorphone 1 mg/ml syringe IV PRN (21:19)
[2019-06-29] MEDS: insulin regular, human U-100 3ml vial - multi-dose SQ SCH (22:09)
[2019-06-29] MEDS: insulin glargine (Lantus) pen - multi-dose SQ SCH (22:10)
[2019-06-30] VITALS (24 sets, daily range): BP systolic 103–134; BP diastolic 64–81
[2019-06-30] MEDS: insulin regular, human U-100 3ml vial - multi-dose SQ SCH ×4 (02:49→21:12)
[2019-06-30 02:57] LABS: BASOPHILS # (AUTO) 0.1 X10'3 (0-0.2); BASOPHILS % (AUTO) 0.5 % (0-1); EOSINOPHILS # (AUTO) 0.2 X10'3 (0-0.9); EOSINOPHILS % (AUTO) 1.3 % (0-6); HEMATOCRIT 41.4 % (42.0-52.0); HEMOGLOBIN 13.5 g/dl (14.0-17.9); LYMPHOCYTES # (AUTO) 1.1 X10'3 (1.1-4.8); LYMPHOCYTES % (AUTO) 7.6 % (21-51); MEAN CORPUSCULAR HGB CONC 32.6 g/dL (33.0-36.5); MEAN CORPUSCULAR VOLUME 98.2 FL (78-98); MEAN PLATELET VOLUME 8.1 FL (7.4-10.4); MONOCYTES % (AUTO) 6.9 % (2-12); NEUTROPHILS # (AUTO) 11.8 X10'3 (1.8-7.7); NEUTROPHILS % (AUTO) 83.7 % (42-75); PLATELET COUNT 547 X10'3 (140-440); RED BLOOD COUNT 4.21 X10'6 (4.70-6.10); RED CELL DISTRIBUTION WIDTH 13.2 % (11.5-14.5); WHITE BLOOD COUNT 14.1 X10'3 (4.5-11.0)
[2019-06-30 03:06] LABS: HEMOGLOBIN A1C 5.9 % (4.5-6.2)
[2019-06-30 03:11] LABS: ALANINE AMINOTRANSFERASE 74 U/L (12-78); ALBUMIN 2.2 G/DL (3.4-5.0); ALBUMIN/GLOBULIN RATIO 0.5 (1.1-1.5); ALKALINE PHOSPHATASE 165 IU/L (46-116); ANION GAP 5 (8-16); ASPARTATE AMINO TRANSFERASE 58 U/L (10-37); BILIRUBIN,TOTAL 0.5 MG/DL (0.1-1.0); BLOOD UREA NITROGEN 27 MG/DL (7-18); BUN/CREATININE RATIO 29.7 (5.4-32.0); CALCIUM 8.1 MG/DL (8.5-10.1); CHLORIDE 98 MMOL/L (99-107); CREATININE 0.91 MG/DL (0.60-1.10); GLUCOSE 167 MG/DL (70-104); MAGNESIUM 2.2 MG/DL (1.5-2.4); PHOSPHORUS 3.2 MG/DL (2.3-4.5); POTASSIUM 3.3 MMOL/L (3.5-5.1); PREALBUMIN 14.1 MG/DL (19-36); SODIUM 136 MMOL/L (135-145); TOTAL CARBON DIOXIDE 32.6 MMOL/L (24-32); TOTAL PROTEIN 6.6 G/DL (6.4-8.2); TRIGLYCERIDES 290 MG/DL (20-135); eGFR 83 ML/MIN
[2019-06-30] MEDS: potassium Cl 20mEq/100mL bag 100 ML IV PRN ×2 (03:42→04:27)
--- NOTE | 2019-06-30 06:20 | NUR ---
Patient in room CICU 2016. I have received report from MADISON Burrell and had the opportunity to ask questions and assume patient care.
[2019-06-30] MEDS: heparin, porcine 5000 units/ml vial SQ SCH ×2 (07:14→21:08)
[2019-06-30] MEDS: piperacillin/tazo 3.375gm/50ml 50 ML IV SCH ×3 (07:14→23:16)
[2019-06-30] MEDS: furosemide 40mg/4ml inj IV SCH ×3 (07:14→21:08)
[2019-06-30] MEDS: pantoprazole 40 MG vial IV SCH (07:14)
[2019-06-30] MEDS: lactobacillus rhamnosus 10,000 MMU CELLS/CAPSULE PO SCH ×2 (07:14→21:08)
[2019-06-30] MEDS: HYDROcodone/acetaminophen 5mg/325mg tablet PO PRN ×2 (07:15→12:23)
[2019-06-30] MEDS: lisinopril 10 MG tablet PO SCH (08:00)
[2019-06-30] MEDS: K and/or MAG REPLACEMENT MC SCH ×2 (08:00→20:00)
[2019-06-30] MEDS: MVI, adult No.4 with vit. K 10 ML in dextrose 5% water 500ml 500 ML IV SCH ×2 (09:19)
--- NOTE | 2019-06-30 13:55 | NUR ---
Dr. Cuellar at bedside. Made aware of diet progression to full liquids, patient not tolerating well yet. Received orders to continue TPN until diet better tolerated. Made aware of purulent discharge at abdominal surgical site, said "to be expected." No new orders received at this time.
--- NOTE | 2019-06-30 14:58 | NUR ---
Reassessment: Pt advanced to full liquid diet this AM 100% PO clears this AM per EMR. TPN remains at goal and tolerating; consider weaning IF PO diet tolerated once advanced w/ adequate intake hx and per surgeon. 1500ml ileostomy output yesterday per MD and 450ml output thus far today per RN; WNL given new ileostomy. Pt has mucous fistula as well w/ 1310ml output down from 1700ml yesterday. Pt seen by RD for written/verbal ileostomy diet ed w/ RD contact information provided. RD encouraged MVI/B12 supplementation at home and recommended f/u w/ MD regarding routine B12 vs MMA checks to ensure current supplementation sufficient. Pt may require sublingual vs IM B12 if PO supplementation not meeting needs long-term; RD encouraged pt to d/w MD. +3kg new bed scale wt likely error given [id number] fluid balance this admit. Initial PALB 14.1 and TG down to 290 from initial 346. Will continue to monitor for PO diet advancement, tolerance, and ONS needs. Recommend: 1. When PICC line placed recommend 2:1 TPN using Clinimix E 5/20 at 85 ml/hr goal will provide total volume 2040 ml, 1795 cals, 102 g protein, and 2.69 mg/kg/min CHO loading. This will meet patient's energy needs in combination with lipids however will not meet patient's protein needs without overfeeding on vent with high dextrose TPN formula. 2. Additional separate 20% intralipids at 7 ml/hr for 12 hours daily for total additional 84 ml per day will provide 16.8 grams and 168 calories. Hold lipids if triglycerides above 400 mg/dl 3. TG/prealbumin q sunday/; daily wts 4. advancement diet as medically indicated to low-residue 5. monitor ileostomy output 6. IF tolerating PO diet once advances w/ sufficient intake consider weaning PN if MD agreeable 7. consider MVI/B12 supplementation post-op once off TPN IF surgeon agreeable Addendum: 06/30/19 at [address] Amended: Links added.
[2019-06-30] MEDS: HYDROmorphone 1 mg/ml syringe IV PRN ×2 (16:41→21:09)
[2019-06-30] MEDS: Trace element-5 inj. 1 ML in AA 5%/CALCIUM/LYTES/DEXT 20% 2,000 ML IV SCH (18:00)
--- NOTE | 2019-06-30 18:00 | NUR ---
Problems reprioritized. Patient report given, questions answered & plan of care reviewed with MADISON Burrell.
[2019-06-30] MEDS: fat emulsion IV bag 250 ML IV SCH (21:08)
[2019-06-30] MEDS: insulin glargine (Lantus) pen - multi-dose SQ SCH (21:14)
[2019-07-01] VITALS (18 sets, daily range): BP systolic 78–124; BP diastolic 41–76
[2019-07-01] MEDS: insulin regular, human U-100 3ml vial - multi-dose SQ SCH ×4 (03:08→20:27)
[2019-07-01 03:13] LABS: BASOPHILS # (AUTO) 0.1 X10'3 (0-0.2); BASOPHILS % (AUTO) 0.7 % (0-1); EOSINOPHILS # (AUTO) 0.2 X10'3 (0-0.9); EOSINOPHILS % (AUTO) 1.5 % (0-6); HEMATOCRIT 41.1 % (42.0-52.0); HEMOGLOBIN 13.7 g/dl (14.0-17.9); LYMPHOCYTES # (AUTO) 1.5 X10'3 (1.1-4.8); LYMPHOCYTES % (AUTO) 9.2 % (21-51); MEAN CORPUSCULAR HEMOGLOBIN 32.5 PG (27.0-31.0); MEAN CORPUSCULAR HGB CONC 33.3 g/dL (33.0-36.5); MEAN CORPUSCULAR VOLUME 97.6 FL (78-98); MEAN PLATELET VOLUME 8.1 FL (7.4-10.4); MONOCYTES # (AUTO) 1.1 X10'3 (0-0.9); MONOCYTES % (AUTO) 6.4 % (2-12); NEUTROPHILS # (AUTO) 13.7 X10'3 (1.8-7.7); NEUTROPHILS % (AUTO) 82.2 % (42-75); PLATELET COUNT 588 X10'3 (140-440); RED BLOOD COUNT 4.21 X10'6 (4.70-6.10); RED CELL DISTRIBUTION WIDTH 13.1 % (11.5-14.5); WHITE BLOOD COUNT 16.7 X10'3 (4.5-11.0)
[2019-07-01 03:26] LABS: ALANINE AMINOTRANSFERASE 60 U/L (12-78); ALBUMIN 2.2 G/DL (3.4-5.0); ALBUMIN/GLOBULIN RATIO 0.5 (1.1-1.5); ALKALINE PHOSPHATASE 187 IU/L (46-116); ANION GAP 4 (8-16); ASPARTATE AMINO TRANSFERASE 36 U/L (10-37); BILIRUBIN,TOTAL 0.5 MG/DL (0.1-1.0); BLOOD UREA NITROGEN 28 MG/DL (7-18); BUN/CREATININE RATIO 28.9 (5.4-32.0); CALCIUM 8.4 MG/DL (8.5-10.1); CHLORIDE 96 MMOL/L (99-107); CREATININE 0.97 MG/DL (0.60-1.10); GLUCOSE 144 MG/DL (70-104); PHOSPHORUS 3.6 MG/DL (2.3-4.5); POTASSIUM 3.4 MMOL/L (3.5-5.1); SODIUM 133 MMOL/L (135-145); TOTAL CARBON DIOXIDE 33.1 MMOL/L (24-32); TOTAL PROTEIN 6.7 G/DL (6.4-8.2); eGFR 77 ML/MIN
[2019-07-01] MEDS: potassium Cl 20mEq/100mL bag 100 ML IV PRN ×2 (03:35→04:33)
[2019-07-01 03:45] LABS: TOTAL CELLS COUNTED 100
[2019-07-01 03:46] LABS: GIANT PLATELET FEW; PLATELET ESTIMATE INCREASED
--- NOTE | 2019-07-01 06:46 | NUR ---
Patient in room CICU 2016. I have received report from MADISON Burrell and had the opportunity to ask questions and assume patient care.
[2019-07-01] MEDS: pantoprazole 40 MG vial IV SCH (07:54)
[2019-07-01] MEDS: lisinopril 10 MG tablet PO SCH (07:55)
[2019-07-01] MEDS: furosemide 40mg/4ml inj IV SCH (07:55)
[2019-07-01] MEDS: piperacillin/tazo 3.375gm/50ml 50 ML IV SCH ×2 (07:55→17:04)
[2019-07-01] MEDS: heparin, porcine 5000 units/ml vial SQ SCH ×2 (07:55→20:28)
[2019-07-01] MEDS: lactobacillus rhamnosus 10,000 MMU CELLS/CAPSULE PO SCH ×2 (07:55→20:27)
[2019-07-01] MEDS: K and/or MAG REPLACEMENT MC SCH ×2 (08:00→20:00)
[2019-07-01] MEDS: methylnaltrexone br 12mg/0.6ml inj***SubQ only SQ SCH (08:00)
[2019-07-01] MEDS: MVI, adult No.4 with vit. K 10 ML in dextrose 5% water 500ml 500 ML IV SCH ×2 (09:00)
[2019-07-01] MEDS: HYDROcodone/acetaminophen 5mg/325mg tablet PO PRN ×3 (12:48→21:26)
--- NOTE | 2019-07-01 14:17 | NUR ---
Received report from MADISON Zamorano. Awaiting patient arrival to room 355B.
--- NOTE | 2019-07-01 14:47 | NUR ---
Gave report to Arnie on Surgical unit. Pt transferred via wheelchair with all belongings. Removed from monitor, no tele required. Pt alert and stable for transfer
--- NOTE | 2019-07-01 15:04 | NUR ---
Received patient to room 355b via wheelchair accompanied by MADISON Zamorano and a PCT. Patient able to transfer to bed from wheelchair with min assist. He c/o pain to abd and states he was not given pain med today but let patient know that according to EMAR patient had been given [place] prior to transfer. x2 patient belongings bag at patient bedside table. Bed low and locked , x2 side rails up, bed alarm on, call light within patient's reach.
[2019-07-01] MEDS: Trace element-5 inj. 1 ML in AA 5%/CALCIUM/LYTES/DEXT 20% 2,000 ML IV SCH (15:33)
[2019-07-01] MEDS ORDERED: normal saline 1000ml 1,000 ML IV ONE (15:35)
--- NOTE | 2019-07-01 15:42 | NUR ---
Dr. Fernandez notified of patient's low bp of 78/44, 72/48 manually taken. Patient denies any symptoms other than abd pain. Dr. Fernandez ordered to have lisinpril dc'd and 1L normal saline IV bolus x1 now. Will continue to monitor.
[2019-07-01] MEDS: ondansetron/PF 4mg/2ml inj IV PRN (17:45)
--- NOTE | 2019-07-01 18:39 | NUR ---
Problems reprioritized. Patient report given, questions answered & plan of care reviewed with MADISON Arevalo.
[2019-07-01] MEDS: insulin glargine (Lantus) pen - multi-dose SQ SCH (20:25)
[2019-07-01] MEDS: fat emulsion IV bag 250 ML IV SCH (20:29)
[2019-07-02] VITALS: BP 85/51
[2019-07-02 00:15] VITALS: BP 82/47
[2019-07-02] MEDS: piperacillin/tazo 3.375gm/50ml 50 ML IV SCH ×3 (00:16→15:43)
[2019-07-02] MEDS ORDERED: albumin (Human) 5% 250ml 250 ML IV ONE (00:25)
[2019-07-02] MEDS ORDERED: albumin (Human) 5% 250ml 500 ML IV ONE (00:25)
--- NOTE | 2019-07-02 00:27 | NUR ---
Pt BP 85/51 and 82/47. MD ordered 5% Albumin to total 500 mL
[2019-07-02] MEDS: insulin regular, human U-100 3ml vial - multi-dose SQ SCH ×4 (01:39→20:24)
--- NOTE | 2019-07-02 01:56 | NUR ---
Pt urinated in emesis bag and some was spilled on the bedding. 24 hour urine restarted at 0150.
[2019-07-02 03:18] VITALS: BP 99/52
--- NOTE | 2019-07-02 03:54 | NUR ---
Lab called to state sample for AM labs contaminated. Will redraw.
[2019-07-02 04:19] LABS: BASOPHILS # (AUTO) 0.1 X10'3 (0-0.2); BASOPHILS % (AUTO) 0.7 % (0-1); EOSINOPHILS % (AUTO) 0.2 % (0-6); HEMATOCRIT 34.4 % (42.0-52.0); HEMOGLOBIN 11.2 g/dl (14.0-17.9); LYMPHOCYTES # (AUTO) 1.1 X10'3 (1.1-4.8); LYMPHOCYTES % (AUTO) 6.1 % (21-51); MEAN CORPUSCULAR HEMOGLOBIN 31.7 PG (27.0-31.0); MEAN CORPUSCULAR HGB CONC 32.7 g/dL (33.0-36.5); MEAN CORPUSCULAR VOLUME 97.1 FL (78-98); MEAN PLATELET VOLUME 7.9 FL (7.4-10.4); MONOCYTES # (AUTO) 1.5 X10'3 (0-0.9); MONOCYTES % (AUTO) 8.2 % (2-12); NEUTROPHILS % (AUTO) 84.8 % (42-75); PLATELET COUNT 560 X10'3 (140-440); RED BLOOD COUNT 3.54 X10'6 (4.70-6.10); RED CELL DISTRIBUTION WIDTH 13.3 % (11.5-14.5); WHITE BLOOD COUNT 17.7 X10'3 (4.5-11.0)
[2019-07-02 04:32] LABS: ANION GAP 6 (8-16); BLOOD UREA NITROGEN 45 MG/DL (7-18); CHLORIDE 94 MMOL/L (99-107); CREATININE 1.45 MG/DL (0.60-1.10); GLUCOSE 123 MG/DL (70-104); POTASSIUM 3.4 MMOL/L (3.5-5.1); SODIUM 129 MMOL/L (135-145); TOTAL CARBON DIOXIDE 28.7 MMOL/L (24-32); eGFR 49 ML/MIN
[2019-07-02 04:33] LABS: ALANINE AMINOTRANSFERASE 35 U/L (12-78); ALBUMIN 2.2 G/DL (3.4-5.0); ALBUMIN/GLOBULIN RATIO 0.6 (1.1-1.5); ALKALINE PHOSPHATASE 146 IU/L (46-116); ASPARTATE AMINO TRANSFERASE 19 U/L (10-37); BILIRUBIN,TOTAL 0.5 MG/DL (0.1-1.0); CALCIUM 7.7 MG/DL (8.5-10.1); PHOSPHORUS 3.6 MG/DL (2.3-4.5); TOTAL PROTEIN 6.2 G/DL (6.4-8.2)
[2019-07-02 04:52] LABS: TOTAL CELLS COUNTED 100
[2019-07-02 04:53] LABS: ANISOCYTOSIS 1+; PLATELET ESTIMATE INCREASED
--- NOTE | 2019-07-02 06:24 | NUR ---
Patient in room [facility] 355. I have received report from MADISON Arevalo and had the opportunity to ask questions and assume patient care.
--- NOTE | 2019-07-02 06:26 | NUR ---
Problems reprioritized. Patient report given, questions answered & plan of care reviewed with MADISON Gaitan.
[2019-07-02 06:40] VITALS: BP 120/55
[2019-07-02] MEDS: potassium Cl 20mEq/100mL bag 100 ML IV PRN ×2 (07:19→08:35)
[2019-07-02] MEDS: pantoprazole 40 MG vial IV SCH (07:23)
[2019-07-02] MEDS: heparin, porcine 5000 units/ml vial SQ SCH ×2 (07:23→20:38)
[2019-07-02] MEDS: lactobacillus rhamnosus 10,000 MMU CELLS/CAPSULE PO SCH ×2 (07:33→20:39)
[2019-07-02] MEDS: K and/or MAG REPLACEMENT MC SCH ×2 (07:33→20:00)
[2019-07-02] MEDS: furosemide 40mg tablet PO SCH (08:00)
[2019-07-02] MEDS: HYDROcodone/acetaminophen 5mg/325mg tablet PO PRN ×3 (08:34→21:03)
[2019-07-02] MEDS: ondansetron/PF 4mg/2ml inj IV PRN (08:59)
[2019-07-02] MEDS: MVI, adult No.4 with vit. K 10 ML in dextrose 5% water 500ml 500 ML IV SCH ×2 (10:10)
[2019-07-02 11:00] VITALS: BP 104/55
--- NOTE | 2019-07-02 13:52 | NUR ---
Reassessment: Patient diet was advanced to mechanical soft, carb controlled 06/29, eating well about 50-75% average so far, met with patient at bedside and observed about 75% intake of his lunch meal. Patient reports he is trying to eat everything and manage the pain of his ileostomy, MD is aware of the site being painful. Pt is excited to be eating and although is eating well today reports he is trying to eat and drink slowly to adjust. TPN remains at goal and tolerating; consider weaning when PO intake greater than 65%. ileostomy output 535 ml yesterday WNL given new ileostomy. Pt has mucous fistula as well. Pt seen by RD for written/verbal ileostomy diet ed w/ RD contact information provided. RD encouraged MVI/B12 supplementation at home and recommended f/u w/ MD regarding routine B12 vs MMA checks to ensure current supplementation sufficient. Pt may require sublingual vs IM B12 if PO supplementation not meeting needs long-term; RD encouraged pt to d/w MD. Noted weight difference from 102.1 kg to 88.9 kg in one day on bedscale, possible weight error, will continue to monitor weights. Recommend: 1. Continue carb controlled, mechanical soft diet 2. 2:1 TPN using Clinimix E 07/08 at 85 ml/hr goal will provide total volume 2040 ml, 1795 cals, 102 g protein, and 2.69 mg/kg/min CHO loading. Recommend to continue until PO intake greater than 65% 3. Additional separate 20% intralipids at 7 ml/hr for 12 hours daily for total additional 84 ml per day will provide 16.8 grams and 168 calories. Hold lipids if triglycerides above 400 mg/dl 4. TG/prealbumin q sunday/; daily wts 5. monitor ileostomy output 6. consider MVI/B12 supplementation post-op once off TPN Addendum: 07/02/19 at [address] Amended: Links added.
[2019-07-02] MEDS: Trace element-5 inj. 1 ML in AA 5%/CALCIUM/LYTES/DEXT 20% 2,000 ML IV SCH (14:07)
--- NOTE | 2019-07-02 18:57 | NUR ---
Problems reprioritized. Patient report given, questions answered & plan of care reviewed with Magdy Mullins.
--- NOTE | 2019-07-02 18:58 | NUR ---
Patient in room [facility] 355. I have received report from JOAN WALLACE and had the opportunity to ask questions and assume patient care.
[2019-07-02 19:00] VITALS: BP 108/61
[2019-07-02] MEDS: diatr meglu/diatrizoate 30ml oral sol.-(3 dose) bottle PO SCH (20:39)
[2019-07-02] MEDS: fat emulsion IV bag 250 ML IV SCH (20:48)
[2019-07-02] MEDS: insulin glargine (Lantus) pen - multi-dose SQ SCH (21:11)
[2019-07-03] VITALS: BP 111/66
[2019-07-03] MEDS: piperacillin/tazo 3.375gm/50ml 50 ML IV SCH ×3 (00:16→16:14)
[2019-07-03 02:21] LABS: UREA NITROGEN 24HR,URINE 28.5 GM/24HR (7-20)
[2019-07-03] MEDS: insulin regular, human U-100 3ml vial - multi-dose SQ SCH ×4 (02:22→20:51)
[2019-07-03 06:02] LABS: BASOPHILS # (AUTO) 0.3 X10'3 (0-0.2); EOSINOPHILS # (AUTO) 0.1 X10'3 (0-0.9); EOSINOPHILS % (AUTO) 0.6 % (0-6); HEMATOCRIT 34.4 % (42.0-52.0); HEMOGLOBIN 11.7 g/dl (14.0-17.9); LYMPHOCYTES # (AUTO) 1.1 X10'3 (1.1-4.8); MEAN CORPUSCULAR HEMOGLOBIN 33.3 PG (27.0-31.0); MEAN CORPUSCULAR HGB CONC 34.1 g/dL (33.0-36.5); MEAN CORPUSCULAR VOLUME 97.8 FL (78-98); MEAN PLATELET VOLUME 8.1 FL (7.4-10.4); MONOCYTES # (AUTO) 1.5 X10'3 (0-0.9); MONOCYTES % (AUTO) 12.3 % (2-12); NEUTROPHILS # (AUTO) 9.2 X10'3 (1.8-7.7); NEUTROPHILS % (AUTO) 75.6 % (42-75); PLATELET COUNT 600 X10'3 (140-440); RED BLOOD COUNT 3.51 X10'6 (4.70-6.10); RED CELL DISTRIBUTION WIDTH 13.1 % (11.5-14.5); WHITE BLOOD COUNT 12.1 X10'3 (4.5-11.0)
[2019-07-03 06:07] LABS: ALANINE AMINOTRANSFERASE 32 U/L (12-78); ALBUMIN 1.9 G/DL (3.4-5.0); ALBUMIN/GLOBULIN RATIO 0.5 (1.1-1.5); ALKALINE PHOSPHATASE 179 IU/L (46-116); ANION GAP 3 (8-16); ASPARTATE AMINO TRANSFERASE 22 U/L (10-37); BILIRUBIN,TOTAL 0.4 MG/DL (0.1-1.0); BLOOD UREA NITROGEN 24 MG/DL (7-18); BUN/CREATININE RATIO 25.3 (5.4-32.0); CHLORIDE 98 MMOL/L (99-107); CREATININE 0.95 MG/DL (0.60-1.10); GLUCOSE 114 MG/DL (70-104); MAGNESIUM 2.1 MG/DL (1.5-2.4); PHOSPHORUS 2.5 MG/DL (2.3-4.5); POTASSIUM 4.3 MMOL/L (3.5-5.1); PREALBUMIN 11.2 MG/DL (19-36); SODIUM 131 MMOL/L (135-145); TOTAL CARBON DIOXIDE 30.2 MMOL/L (24-32); TOTAL PROTEIN 6.1 G/DL (6.4-8.2); TRIGLYCERIDES 187 MG/DL (20-135); eGFR 79 ML/MIN
--- NOTE | 2019-07-03 06:30 | NUR ---
Problems reprioritized. Patient report given, questions answered & plan of care reviewed with NIKKI WALLACE.
[2019-07-03 06:38] LABS: BASOPHILS % (AUTO) 1.5 % (0-1)
[2019-07-03 06:44] LABS: TOTAL CELLS COUNTED 100
[2019-07-03 06:45] LABS: ANISOCYTOSIS 1+; PLATELET ESTIMATE INCREASED
[2019-07-03] MEDS: pantoprazole 40 MG vial IV SCH (07:46)
[2019-07-03] MEDS: diatr meglu/diatrizoate 30ml oral sol.-(3 dose) bottle PO SCH ×2 (07:48→09:55)
[2019-07-03] MEDS: heparin, porcine 5000 units/ml vial SQ SCH ×2 (07:48→20:56)
[2019-07-03 08:00] VITALS: BP 124/63
[2019-07-03] MEDS: furosemide 40mg tablet PO SCH ×2 (08:00→10:52)
[2019-07-03] MEDS: K and/or MAG REPLACEMENT MC SCH ×2 (08:00→20:00)
[2019-07-03] MEDS: methylnaltrexone br 12mg/0.6ml inj***SubQ only SQ SCH (08:00)
[2019-07-03] MEDS: lactobacillus rhamnosus 10,000 MMU CELLS/CAPSULE PO SCH ×3 (08:00→20:55)
[2019-07-03] MEDS: MVI, adult No.4 with vit. K 10 ML in dextrose 5% water 500ml 500 ML IV SCH ×2 (09:55)
[2019-07-03] MEDS: HYDROcodone/acetaminophen 5mg/325mg tablet PO PRN ×3 (10:49→20:56)
[2019-07-03 11:00] VITALS: BP 130/63
[2019-07-03] MEDS: Trace element-5 inj. 1 ML in AA 5%/CALCIUM/LYTES/DEXT 20% 2,000 ML IV SCH (11:05)
--- NOTE | 2019-07-03 17:28 | NUR ---
Reassessment: Appetite is ok, for 07/01 average PO intake 25-49% although RD observed about 75% intake of his lunch meal. Has mechanical soft, carb controlled diet. Patient reports he is trying to eat everything and manage the pain of his ileostomy, MD is aware of the site being painful. Pt is excited to be eating and although is eating well today reports he is trying to eat and drink slowly to adjust. TPN remains at goal and tolerating; consider weaning when PO intake greater than 65%. Triglycerides 187, trending down. ileostomy output 700 ml yesterday WNL given new ileostomy. Pt has mucous fistula as well. Pt seen by RD for written/verbal ileostomy diet ed w/ RD contact information provided. RD encouraged MVI/B12 supplementation at home and recommended f/u w/ MD regarding routine B12 vs MMA checks to ensure current supplementation sufficient. Pt may require sublingual vs IM vitamin B12 if PO supplementation not meeting needs long-term; RD encouraged pt to d/w MD. Noted weight difference from 102.1 kg to 88.9 [facility], possible weight error, will continue to monitor weights. Recommend: 1. Continue carb controlled, mechanical soft diet 2. 2:1 TPN using Clinimix E /20 at 85 ml/hr goal will provide total volume 2040 ml, 1795 cals, 102 g protein, and 2.69 mg/kg/min CHO loading. Recommend to continue until PO intake greater than 65% 3. Additional separate 20% intralipids at 7 ml/hr for 12 hours daily for total additional 84 ml per day will provide 16.8 grams and 168 calories. Hold lipids if triglycerides above 400 mg/dl 4. TG/prealbumin q sunday/; daily wts 5. monitor ileostomy output 6. consider MVI/B12 supplementation post-op once off TPN Addendum: 07/03/19 at [address] Amended: Links added.
--- NOTE | 2019-07-03 18:16 | NUR ---
Problems reprioritized. Patient report given, questions answered & plan of care reviewed with HELEN CERVANTES RN.
--- NOTE | 2019-07-03 18:30 | NUR ---
Patient in room [facility] 355. I have received report from NIKKI WALLACE and had the opportunity to ask questions and assume patient care.
[2019-07-03 19:00] VITALS: BP 120/61
[2019-07-03] MEDS: fat emulsion IV bag 250 ML IV SCH (20:37)
[2019-07-03] MEDS: insulin glargine (Lantus) pen - multi-dose SQ SCH (20:48)
[2019-07-03] MEDS: ondansetron/PF 4mg/2ml inj IV PRN (20:51)
[2019-07-03] MEDS: temazepam 15mg capsule PO PRN (23:04)
[2019-07-04] VITALS (8 sets, daily range): BP systolic 109–125; BP diastolic 55–64
[2019-07-04] MEDS: piperacillin/tazo 3.375gm/50ml 50 ML IV SCH ×3 (00:31→16:38)
[2019-07-04] MEDS: Trace element-5 inj. 1 ML in AA 5%/CALCIUM/LYTES/DEXT 20% 2,000 ML IV SCH (04:56)
[2019-07-04] MEDS: HYDROcodone/acetaminophen 5mg/325mg tablet PO PRN ×3 (06:02→22:43)
[2019-07-04 06:12] LABS: BASOPHILS % (AUTO) 0.6 % (0-1); HEMOGLOBIN 12.3 g/dl (14.0-17.9); NEUTROPHILS # (AUTO) 5.7 X10'3 (1.8-7.7); WHITE BLOOD COUNT 8.3 X10'3 (4.5-11.0)
[2019-07-04 06:15] LABS: BASOPHILS # (AUTO) 0.1 X10'3 (0-0.2); EOSINOPHILS # (AUTO) 0.1 X10'3 (0-0.9); EOSINOPHILS % (AUTO) 1.5 % (0-6); HEMATOCRIT 36.2 % (42.0-52.0); LYMPHOCYTES % (AUTO) 12.2 % (21-51); MEAN CORPUSCULAR HEMOGLOBIN 33.2 PG (27.0-31.0); MEAN CORPUSCULAR VOLUME 97.6 FL (78-98); MEAN PLATELET VOLUME 7.8 FL (7.4-10.4); MONOCYTES # (AUTO) 1.4 X10'3 (0-0.9); MONOCYTES % (AUTO) 17.4 % (2-12); NEUTROPHILS % (AUTO) 68.3 % (42-75); PLATELET COUNT 618 X10'3 (140-440); RED BLOOD COUNT 3.71 X10'6 (4.70-6.10); RED CELL DISTRIBUTION WIDTH 13.2 % (11.5-14.5)
[2019-07-04 06:29] LABS: ALANINE AMINOTRANSFERASE 37 U/L (12-78); ALBUMIN 1.8 G/DL (3.4-5.0); ALBUMIN/GLOBULIN RATIO 0.4 (1.1-1.5); ALKALINE PHOSPHATASE 201 IU/L (46-116); ANION GAP 5 (8-16); ASPARTATE AMINO TRANSFERASE 27 U/L (10-37); BILIRUBIN,TOTAL 0.4 MG/DL (0.1-1.0); BLOOD UREA NITROGEN 19 MG/DL (7-18); BUN/CREATININE RATIO 19.2 (5.4-32.0); CALCIUM 8.1 MG/DL (8.5-10.1); CHLORIDE 99 MMOL/L (99-107); CREATININE 0.99 MG/DL (0.60-1.10); GLUCOSE 110 MG/DL (70-104); MAGNESIUM 2.1 MG/DL (1.5-2.4); PHOSPHORUS 2.9 MG/DL (2.3-4.5); POTASSIUM 4.5 MMOL/L (3.5-5.1); SODIUM 132 MMOL/L (135-145); TOTAL CARBON DIOXIDE 28.1 MMOL/L (24-32); TOTAL PROTEIN 6.3 G/DL (6.4-8.2); eGFR 76 ML/MIN
--- NOTE | 2019-07-04 06:30 | NUR ---
Problems reprioritized. Patient report given, questions answered & plan of care reviewed with REYNA WALLACE.
[2019-07-04] MEDS: heparin, porcine 5000 units/ml vial SQ SCH ×2 (06:41→19:43)
--- NOTE | 2019-07-04 07:10 | NUR ---
Patient in room [facility] 355. I have received report from Josefina Rocha RN and had the opportunity to ask questions and assume patient care.
--- NOTE | 2019-07-04 07:12 | NUR ---
Spoke to Jayy in IR he states he does not show an order he will check with IR MD that comes in and go from there hold heparin and have patient NPO he will let me know
[2019-07-04 07:22] LABS: PLATELET ESTIMATE INCREASED; TOTAL CELLS COUNTED 100
[2019-07-04] MEDS: K and/or MAG REPLACEMENT MC SCH ×2 (08:00→20:00)
[2019-07-04] MEDS: insulin regular, human U-100 3ml vial - multi-dose SQ SCH ×3 (08:15→22:30)
[2019-07-04] MEDS: furosemide 40mg tablet PO SCH (08:19)
[2019-07-04] MEDS: lactobacillus rhamnosus 10,000 MMU CELLS/CAPSULE PO SCH ×2 (08:19→19:43)
[2019-07-04] MEDS: pantoprazole 40 MG vial IV SCH (08:28)
--- NOTE | 2019-07-04 08:30 | NUR ---
DC'd Condom cath per patient request. Patient would like to use urinal. Patient getting out of bed with 1 person contact guard FWW. Patient tolerated well. Will continue to monitor for urine output.
[2019-07-04] MEDS: ondansetron/PF 4mg/2ml inj IV PRN (08:35)
[2019-07-04] MEDS ORDERED: fentaNYL/PF 50MCG/1 ML 2ML syringe ONE (09:49)
[2019-07-04] MEDS: MVI, adult No.4 with vit. K 10 ML in dextrose 5% water 500ml 500 ML IV SCH ×2 (10:51)
--- NOTE | 2019-07-04 17:27 | NUR ---
PAGER ID: [phone] MESSAGE: shahbaz freeman [phone] re: Sheryl El b patient wanting something for heartburn. please call
--- NOTE | 2019-07-04 17:49 | NUR ---
Patients daughter Nisha called. Per patient ok to given daughter information. Patients daughter informed of patient status and that patient will be going back to surgery for a procedure to add sutures to stoma site. Patients scarlet Cameron would like a call back from Dr Cuellar tomorrow if possible I advised Daughter I would leave a message with pipe smoking machine offbearer and cell operation supervisor charge weigher. I also advised daughter to call back after 0800 and speak with tomorrows RN. Daughter verbalized understanding. Addendum: 07/04/19 at 1753 by Clari Eisenberg RN Message given to patient that his daughter Nisha would like a call back patients cell phone has been charged at nursing station and given back to patient. Patient said he wants to take a nap before calling daughter back.
--- NOTE | 2019-07-04 18:47 | NUR ---
Patient in room [facility]. I have received report from MADISON Montague and had the opportunity to ask questions and assume patient care. Addendum: 07/04/19 at 1848 by Kristan Adams RN Amended: Links added.
--- NOTE | 2019-07-04 18:59 | NUR ---
Problems reprioritized. Patient report given, questions answered & plan of care reviewed with Angie Nogueira RN.
--- NOTE | 2019-07-04 20:33 | NUR ---
patient refusing to check his blood sugar for 2000
[2019-07-04] MEDS: fat emulsion IV bag 250 ML IV SCH (21:06)
[2019-07-04] MEDS: insulin glargine (Lantus) pen - multi-dose SQ SCH (22:31)
[2019-07-05] VITALS (17 sets, daily range): BP systolic 124–154; BP diastolic 59–84
[2019-07-05] MEDS: piperacillin/tazo 3.375gm/50ml 50 ML IV SCH ×3 (00:05→20:46)
[2019-07-05] MEDS: insulin regular, human U-100 3ml vial - multi-dose SQ SCH ×2 (02:34→22:01)
[2019-07-05] MEDS: Trace element-5 inj. 1 ML in AA 5%/CALCIUM/LYTES/DEXT 20% 2,000 ML IV SCH (04:07)
[2019-07-05 05:49] LABS: BASOPHILS # (AUTO) 0.1 X10'3 (0-0.2); EOSINOPHILS # (AUTO) 0.2 X10'3 (0-0.9); EOSINOPHILS % (AUTO) 2.7 % (0-6); LYMPHOCYTES # (AUTO) 1.1 X10'3 (1.1-4.8); MONOCYTES # (AUTO) 1.3 X10'3 (0-0.9)
[2019-07-05 05:52] LABS: BASOPHILS % (AUTO) 1.4 % (0-1); HEMATOCRIT 35.6 % (42.0-52.0); LYMPHOCYTES % (AUTO) 14.8 % (21-51); MEAN CORPUSCULAR HEMOGLOBIN 32.6 PG (27.0-31.0); MEAN CORPUSCULAR HGB CONC 33.6 g/dL (33.0-36.5); MEAN PLATELET VOLUME 7.6 FL (7.4-10.4); MONOCYTES % (AUTO) 16.9 % (2-12); NEUTROPHILS # (AUTO) 4.8 X10'3 (1.8-7.7); NEUTROPHILS % (AUTO) 64.2 % (42-75); PLATELET COUNT 662 X10'3 (140-440); RED BLOOD COUNT 3.67 X10'6 (4.70-6.10); RED CELL DISTRIBUTION WIDTH 13.6 % (11.5-14.5); WHITE BLOOD COUNT 7.5 X10'3 (4.5-11.0)
[2019-07-05 06:25] LABS: ALANINE AMINOTRANSFERASE 35 U/L (12-78); ALBUMIN 1.9 G/DL (3.4-5.0); ALBUMIN/GLOBULIN RATIO 0.4 (1.1-1.5); ALKALINE PHOSPHATASE 207 IU/L (46-116); ANION GAP 6 (8-16); ASPARTATE AMINO TRANSFERASE 24 U/L (10-37); BILIRUBIN,TOTAL 0.3 MG/DL (0.1-1.0); BLOOD UREA NITROGEN 18 MG/DL (7-18); CALCIUM 8.2 MG/DL (8.5-10.1); CHLORIDE 99 MMOL/L (99-107); CREATININE 1.06 MG/DL (0.60-1.10); GLUCOSE 109 MG/DL (70-104); MAGNESIUM 2.2 MG/DL (1.5-2.4); PHOSPHORUS 3.8 MG/DL (2.3-4.5); POTASSIUM 4.3 MMOL/L (3.5-5.1); SODIUM 135 MMOL/L (135-145); TOTAL CARBON DIOXIDE 30.4 MMOL/L (24-32); TOTAL PROTEIN 6.4 G/DL (6.4-8.2); eGFR 70 ML/MIN
--- NOTE | 2019-07-05 06:30 | NUR ---
Problems reprioritized. Patient report given, questions answered & plan of care reviewed with MADISON Perrin.
--- NOTE | 2019-07-05 06:41 | NUR ---
Patient in room [facility]. I have received report from Liza WALLACE and had the opportunity to ask questions and assume patient care. Addendum: 07/05/19 at 0649 by Marychuy Iglesias RN Report received from Irina WALLACE
[2019-07-05 06:48] LABS: PLATELET ESTIMATE INCREASED; TOTAL CELLS COUNTED 100
[2019-07-05 06:49] LABS: LARGE PLATELETS FEW; POLYCHROMASIA FEW
[2019-07-05] MEDS: pantoprazole 40 MG vial IV SCH (07:30)
[2019-07-05] MEDS: furosemide 40mg tablet PO SCH (07:30)
[2019-07-05] MEDS: lactobacillus rhamnosus 10,000 MMU CELLS/CAPSULE PO SCH ×2 (07:30→20:52)
[2019-07-05] MEDS: heparin, porcine 5000 units/ml vial SQ SCH ×2 (08:00→20:52)
[2019-07-05] MEDS: K and/or MAG REPLACEMENT MC SCH ×2 (08:00→20:00)
[2019-07-05] MEDS: methylnaltrexone br 12mg/0.6ml inj***SubQ only SQ SCH (08:00)
--- NOTE | 2019-07-05 09:32 | NUR ---
Problems reprioritized. Patient report given, questions answered & plan of care reviewed with Peri WALLACE.
[2019-07-05] MEDS: MVI, adult No.4 with vit. K 10 ML in dextrose 5% water 500ml 500 ML IV SCH ×2 (09:33)
--- NOTE | 2019-07-05 09:34 | NUR ---
pt left to surgery - report given to latesha Curran in recovery.
[2019-07-05] MEDS: HYDROcodone/acetaminophen 5mg/325mg tablet PO PRN (11:58)
--- NOTE | 2019-07-05 14:29 | NUR ---
Pt back from lab Addendum: 07/05/19 at 1429 by Marychuy Iglesias RN wrong pt
[2019-07-05] MEDS ORDERED: ringers solution, lacted 1,000 ML IV SCH (14:58)
[2019-07-05] MEDS ORDERED: hydrALAZINE 20mg/ml inj. IV PRN (15:00)
[2019-07-05] MEDS ORDERED: labetalol 20mg/4ml (5mg/ml) syringe IV PRN (15:00)
[2019-07-05] MEDS ORDERED: fentaNYL/PF 50MCG/1 ML 2ML syringe IV PRN ×2 (15:00)
[2019-07-05] MEDS ORDERED: morphine 2 MG/ML inj. syringe IV PRN (15:00)
[2019-07-05] MEDS ORDERED: ondansetron/PF 4mg/2ml inj IV PRN (15:00)
[2019-07-05] MEDS ORDERED: morphine 4 MG/ML inj SYRINge IV PRN (15:00)
--- NOTE | 2019-07-05 17:50 | NUR ---
Pt left to OR for procedure. Previously, 0830 pt was taken for a procedure and brought back because OR decided to change schedule at the last minute. Pt brought back and stated he was going back tomorrow. Pt ate a yogurt, OR was called and procedure was pushed back to 1730. Pt is NPO since 09.
--- NOTE | 2019-07-05 18:18 | NUR ---
Problems reprioritized. Patient report given, questions answered & plan of care reviewed with Dale Curran.
[2019-07-05] MEDS ORDERED: ceFOXitin 2GM-NS 50mL ADDVANT. 50 ML IV ONE (18:41)
[2019-07-05] MEDS ORDERED: midazolam 2 mg/2 ml injection ONE (18:43)
[2019-07-05] MEDS ORDERED: fentaNYL/PF 50MCG/1 ML 2ML syringe ONE (18:43)
[2019-07-05] MEDS ORDERED: LIDOcaine 2% (20mg/ml) 5ml vial ONE (18:47)
[2019-07-05] MEDS ORDERED: propofol inj 20 ML IV ONE (18:47)
[2019-07-05] MEDS ORDERED: sevoflurane 250ml liquid IH ONE (18:48)
[2019-07-05] MEDS ORDERED: rocuronium 10mg/ml inj IV ONE (18:48)
[2019-07-05] MEDS ORDERED: ondansetron/PF 4mg/2ml inj ONE (18:56)
[2019-07-05] MEDS ORDERED: sugammadex 200mg/2ml injection IV ONE (19:07)
--- NOTE | 2019-07-05 19:27 | NUR ---
RECEIVED FROM OR VIA [facility] ACCOMPANIED BY ANESTHESIOLOGIST DR WELDON, REPORT GIVEN.PT DROWSY BUT AWAKENS EASILY WITH NO COMPLAINT OF PAIN AT THIS TIME. PICC LINE L UA PATENT AND RUNNING LR AT 100 ML/HR. BILATERAL COLOSTOMY BAGS R AND L ABD, KERLIX AND ABD PAD MIDLINE, CDI, RAVEN DRAIN TO R ABD INTACT AND TO SUCTION. VSS, SKIN PINK AND WARM, TORRES
--- NOTE | 2019-07-05 20:27 | NUR ---
TRANSPORTED TO ROOM VIA BED WITH BED RAILS UP, REPORT GIVEN.PT AWAKE AND ALERT WITH NO COMPLAINT OF PAIN AT THIS TIME. PICC LINE L UA PATENT AND RUNNING LR AT 100 ML/HR. BILATERAL COLOSTOMY BAGS R AND L ABD, KERLIX AND ABD PAD MIDLINE, CDI, RAVEN DRAIN TO R ABD INTACT AND TO SUCTION. VSS, SKIN PINK AND WARM, TORRES
[2019-07-05] MEDS: fat emulsion IV bag 250 ML IV SCH (20:45)
[2019-07-05] MEDS: insulin glargine (Lantus) pen - multi-dose SQ SCH (22:02)
[2019-07-06] VITALS: BP 135/75
[2019-07-06 00:15] VITALS: BP 124/70
[2019-07-06] MEDS: piperacillin/tazo 3.375gm/50ml 50 ML IV SCH ×4 (02:01→23:55)
[2019-07-06] MEDS: Trace element-5 inj. 1 ML in AA 5%/CALCIUM/LYTES/DEXT 20% 2,000 ML IV SCH (02:07)
[2019-07-06] MEDS: insulin regular, human U-100 3ml vial - multi-dose SQ SCH ×2 (02:18→09:54)
[2019-07-06 04:48] VITALS: BP 131/66
[2019-07-06 05:56] LABS: EOSINOPHILS % (AUTO) 0.1 % (0-6); LYMPHOCYTES # (AUTO) 0.6 X10'3 (1.1-4.8); MONOCYTES # (AUTO) 0.7 X10'3 (0-0.9); RED CELL DISTRIBUTION WIDTH 13.3 % (11.5-14.5)
[2019-07-06 05:58] LABS: BASOPHILS % (AUTO) 0.5 % (0-1); HEMATOCRIT 37.8 % (42.0-52.0); HEMOGLOBIN 12.4 g/dl (14.0-17.9); MEAN CORPUSCULAR HGB CONC 32.7 g/dL (33.0-36.5); MEAN CORPUSCULAR VOLUME 97.6 FL (78-98); MEAN PLATELET VOLUME 7.8 FL (7.4-10.4); MONOCYTES % (AUTO) 10.4 % (2-12); NEUTROPHILS # (AUTO) 5.1 X10'3 (1.8-7.7); PLATELET COUNT 642 X10'3 (140-440); RED BLOOD COUNT 3.87 X10'6 (4.70-6.10); WHITE BLOOD COUNT 6.4 X10'3 (4.5-11.0)
--- NOTE | 2019-07-06 06:00 | NUR ---
Patient in room [facility]. I have received report from Dale WALLACE and had the opportunity to ask questions and assume patient care.
[2019-07-06 06:05] LABS: ALANINE AMINOTRANSFERASE 35 U/L (12-78); ALBUMIN 1.9 G/DL (3.4-5.0); ALBUMIN/GLOBULIN RATIO 0.4 (1.1-1.5); ALKALINE PHOSPHATASE 216 IU/L (46-116); ANION GAP 3 (8-16); ASPARTATE AMINO TRANSFERASE 21 U/L (10-37); BILIRUBIN,TOTAL 0.2 MG/DL (0.1-1.0); BLOOD UREA NITROGEN 19 MG/DL (7-18); BUN/CREATININE RATIO 21.6 (5.4-32.0); CALCIUM 8.6 MG/DL (8.5-10.1); CHLORIDE 102 MMOL/L (99-107); CREATININE 0.88 MG/DL (0.60-1.10); GLUCOSE 164 MG/DL (70-104); MAGNESIUM 2.3 MG/DL (1.5-2.4); PHOSPHORUS 3.1 MG/DL (2.3-4.5); POTASSIUM 4.9 MMOL/L (3.5-5.1); SODIUM 135 MMOL/L (135-145); TOTAL PROTEIN 6.6 G/DL (6.4-8.2); TRIGLYCERIDES 175 MG/DL (20-135); eGFR 87 ML/MIN
[2019-07-06 07:00] VITALS: BP 131/71
[2019-07-06] MEDS: lactobacillus rhamnosus 10,000 MMU CELLS/CAPSULE PO SCH ×2 (07:52→19:34)
[2019-07-06] MEDS: furosemide 40mg tablet PO SCH (07:53)
[2019-07-06] MEDS: K and/or MAG REPLACEMENT MC SCH ×2 (07:53→19:30)
[2019-07-06] MEDS: heparin, porcine 5000 units/ml vial SQ SCH ×2 (07:53→19:34)
[2019-07-06] MEDS ORDERED: Dextrose 10%-water IV solution 1,000 ML IV PRN (08:29)
--- NOTE | 2019-07-06 08:30 | NUR ---
PICC line seen pulled more than half way out when walking into room, pt states he doesnt know what happen. Stated that a new IV will need to be placed. Pt states he wants to finish breakfast before starting the IV. Explained importance of starting IV as soon as possible due to TPN not running anymore. Pt still stated that he wants to finish eating breakfast. paged. Awaiting callback.
--- NOTE | 2019-07-06 09:54 | NUR ---
Unable to get IV started, will not being giving insulin due to risk of hypoglycemia because of no IV access, havent been able to run D10 in place of TPN. Pt eating breakfast, will continue to monitor for s/s hypoglycemia.
[2019-07-06] MEDS: pantoprazole 40 MG vial IV SCH (10:54)
[2019-07-06 11:00] VITALS: BP 116/73
[2019-07-06] MEDS: MVI, adult No.4 with vit. K 10 ML in dextrose 5% water 500ml 500 ML IV SCH ×2 (11:44)
[2019-07-06] MEDS ORDERED: benzocaine/menthol oral lozeng 1 EACH BOX MM PRN (12:25)
--- NOTE | 2019-07-06 12:27 | NUR ---
Informed Dr. Montoya of bacilioflo resistance to klebsiella. stated to talk to Dr. Cuellar about changing antibiotics.
--- NOTE | 2019-07-06 14:15 | NUR ---
PPN Consult: Pt has pulled PICC line and PPN to start in addition to PO per surgeon. Pt PO 50-75% breakfast this AM and 75% lunch today per RN much improved from prior. Pt placed on mechanical soft diet post-op; RD d/w RN regarding addition of low-residue diet post-op if MD agreeable. MD is agreeable and low-fiber diet was added. RN reports pt claims appetite much improved today. 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 Ileostomy output 600ml WNL. RD d/w surgeon regarding pt current PO and functional gut may benefit from complete enteral nutrition intake to meet nutrient w/ improving appetite. Surgeon requests supplemental PPN given pt s/p 2 surgeries until sufficient PO hx ensured. Pt now has peripheral line placed per RN; PPN recs below adjusted to include pt current PO intake. Ensure Enlive TIDWM added for additional protein/kcal needs; MD notified. Will continue to monitor. Recommend: 1. Continue carb controlled, mechanical soft, low fiber diet 2. PPN per surgeon using Clinimix E 4.25/10 at 90ml/hr goal w/ 84ml separate 20% intralipids infusions to run at 7ml/hr for 12 hours daily. To provide 2160ml fluid, 92g AA, 216g DEX(1.64mg/kg/min), and 1272 total kcals. Initiate at 30ml/hr and advance Q12 to goal as tolerated. Recommend to continue until PO intake greater than 65% avg meals 3. Hold lipids if TG above 400 mg/dl 4. TG/prealbumin q sunday/; daily wts 5. monitor ileostomy output 6. consider MVI/B12 supplementation post-op 7. ensure enlive TIDWM 8. monitor for PPN tolerance Addendum: 07/06/19 at [address] Amended: Links added.
--- NOTE | 2019-07-06 15:08 | NUR ---
Informed Dr. Cuellar that Zosyn is resistant to klebsiella. stated he will adjust the medications.
--- NOTE | 2019-07-06 16:02 | NUR ---
IV infiltrated, explained to pt that another IV needs to be started. Pt stated he would like a break. Also explained his abdomen dressing needs to be changed. Pt stated "Not right now, I want to rest." Will reattempt shortly.
[2019-07-06] MEDS: HYDROcodone/acetaminophen 5mg/325mg tablet PO PRN ×2 (16:11→23:42)
[2019-07-06] MEDS ORDERED: DEX IV SCH (16:30)
[2019-07-06] MEDS ORDERED: LYTES IV SCH (16:30)
[2019-07-06] MEDS ORDERED: TRACE ELEMENT IV SCH (16:30)
[2019-07-06] MEDS ORDERED: CALCIUM IV SCH (16:30)
[2019-07-06] MEDS ORDERED: [UNRECOGNIZED DRUG - OTHER] IV SCH (16:30)
--- NOTE | 2019-07-06 18:19 | NUR ---
Problems reprioritized. Patient report given, questions answered & plan of care reviewed with Liza WALLACE.
--- NOTE | 2019-07-06 18:20 | NUR ---
Patient in room [facility]. I have received report from Anayeli WALLACE and had the opportunity to ask questions and assume patient care.
--- NOTE | 2019-07-06 19:58 | NUR ---
Called and spoke with pharmacy in regards to the intralipid because the patient no longer has a PICC line. Pharmacy stated that intralipid is OK to give through a peripheral line.
[2019-07-06 20:00] VITALS: BP 132/74
[2019-07-06] MEDS: insulin glargine (Lantus) pen - multi-dose SQ SCH (20:12)
[2019-07-06] MEDS: fat emulsion IV bag 250 ML IV SCH (20:40)
[2019-07-06] MEDS: temazepam 15mg capsule PO PRN (21:56)
--- NOTE | 2019-07-06 23:57 | NUR ---
PATIENT HAS SLIGHT CONFUSION AT TIMES. HE IS ALERT AND ORIENTED MOST OF THE TIME. PATIENT ASKED ME AFTER REPOSITIONING HIM IN BED IF HE WAS IN THE SAME SPOT. PATIENT STATED THAT HE GETS CONFUSED SOMETIMES AND THAT THIS IS NORMAL FOR HIM.
[2019-07-07] VITALS: BP 110/69
[2019-07-07] MEDS: HYDROcodone/acetaminophen 5mg/325mg tablet PO PRN ×3 (03:52→23:24)
[2019-07-07 05:30] LABS: EOSINOPHILS # (AUTO) 0.2 X10'3 (0-0.9); LYMPHOCYTES # (AUTO) 1.3 X10'3 (1.1-4.8); MEAN CORPUSCULAR VOLUME 96.6 FL (78-98); WHITE BLOOD COUNT 6.5 X10'3 (4.5-11.0)
[2019-07-07 05:34] LABS: BASOPHILS # (AUTO) 0.2 X10'3 (0-0.2); BASOPHILS % (AUTO) 3.2 % (0-1); HEMATOCRIT 37.6 % (42.0-52.0); HEMOGLOBIN 12.5 g/dl (14.0-17.9); LYMPHOCYTES % (AUTO) 20.5 % (21-51); MEAN CORPUSCULAR HGB CONC 33.2 g/dL (33.0-36.5); MEAN PLATELET VOLUME 7.6 FL (7.4-10.4); MONOCYTES # (AUTO) 1.1 X10'3 (0-0.9); NEUTROPHILS # (AUTO) 3.7 X10'3 (1.8-7.7); NEUTROPHILS % (AUTO) 56.3 % (42-75); PLATELET COUNT 667 X10'3 (140-440); RED BLOOD COUNT 3.89 X10'6 (4.70-6.10); RED CELL DISTRIBUTION WIDTH 13.1 % (11.5-14.5)
[2019-07-07 05:52] LABS: ALANINE AMINOTRANSFERASE 45 U/L (12-78); ALBUMIN 1.9 G/DL (3.4-5.0); ALBUMIN/GLOBULIN RATIO 0.4 (1.1-1.5); ALKALINE PHOSPHATASE 233 IU/L (46-116); ANION GAP 8 (8-16); ASPARTATE AMINO TRANSFERASE 32 U/L (10-37); BILIRUBIN,TOTAL 0.2 MG/DL (0.1-1.0); BLOOD UREA NITROGEN 22 MG/DL (7-18); BUN/CREATININE RATIO 23.9 (5.4-32.0); CALCIUM 8.8 MG/DL (8.5-10.1); CHLORIDE 100 MMOL/L (99-107); CREATININE 0.92 MG/DL (0.60-1.10); GLUCOSE 115 MG/DL (70-104); MAGNESIUM 1.9 MG/DL (1.5-2.4); PHOSPHORUS 3.5 MG/DL (2.3-4.5); POTASSIUM 4.6 MMOL/L (3.5-5.1); SODIUM 134 MMOL/L (135-145); TOTAL CARBON DIOXIDE 26.4 MMOL/L (24-32); TOTAL PROTEIN 6.5 G/DL (6.4-8.2); TRIGLYCERIDES 251 MG/DL (20-135); eGFR 82 ML/MIN
--- NOTE | 2019-07-07 06:06 | NUR ---
Problems reprioritized. Patient report given, questions answered & plan of care reviewed with Anayeli WALLACE.
[2019-07-07 06:12] LABS: ANISOCYTOSIS 1+; NUCLEATED RED BLOOD CELLS 1 /100WBC (0-0); PLATELET ESTIMATE INCREASED; TOTAL CELLS COUNTED 100
[2019-07-07 06:13] LABS: LARGE PLATELETS FEW
--- NOTE | 2019-07-07 06:49 | NUR ---
Patient in room [facility]. I have received report from Liza WALLACE and had the opportunity to ask questions and assume patient care.
[2019-07-07 07:00] VITALS: BP 132/72
[2019-07-07] MEDS: K and/or MAG REPLACEMENT MC SCH ×2 (08:00→20:00)
[2019-07-07] MEDS: methylnaltrexone br 12mg/0.6ml inj***SubQ only SQ SCH (08:00)
[2019-07-07] MEDS: pantoprazole 40 MG vial IV SCH (08:12)
[2019-07-07] MEDS: lactobacillus rhamnosus 10,000 MMU CELLS/CAPSULE PO SCH ×2 (08:13→20:21)
[2019-07-07] MEDS: CefTRIAXone/D5W-Rocephin 1gm 50 ML IV SCH (08:13)
[2019-07-07] MEDS: fluconazole 100mg tablet PO SCH (08:13)
[2019-07-07] MEDS: furosemide 40mg tablet PO SCH (08:13)
[2019-07-07] MEDS: heparin, porcine 5000 units/ml vial SQ SCH ×2 (08:13→20:22)
[2019-07-07] MEDS: MVI, adult No.4 with vit. K 10 ML in dextrose 5% water 500ml 500 ML IV SCH ×2 (09:13)
[2019-07-07] MEDS: piperacillin/tazo 3.375gm/50ml 50 ML IV SCH ×3 (09:18→23:25)
[2019-07-07 12:48] VITALS: BP 154/82
[2019-07-07] MEDS: lactose-reduced food (Ensure Enlive) - 237ml bottle PO SCH ×2 (13:34→18:04)
--- NOTE | 2019-07-07 13:44 | NUR ---
TPN Consult: Pt pending new PICC line placement and TPN to start again until meeting needs enterally per surgeon. RD d/w RN and hospitalist notified that pt has functioning gut Ileostomy 650ml output post-op and PO 75% avg meals past 2 days w/ improving appetite; PN not medically indicated at this time given prior information. Pt also pulled prior PICC line. Per RN; hospitalist d/w surgeon who requests TPN to still start today. Ensure Enlvie TIDWM added to meals today pending first PO at dinner tonight. IF pt PO 65% avg ONS TID will be meeting protein needs and exceeding kcal needs; MD/RN aware pt nutrient needs can be met purely w/ PO nutrition. Low dose TPN recs below given adequate enteral intake. TG 251 today; will adjust given PO hx. Will monitor for PN tolerance and weaning as medically indicated. Recommend: 1. Continue carb controlled, mechanical soft, low fiber diet 2. Low dose supplemental TPN per surgeon request using Clinimix E 5/20 at 30ml/hr goal w/ 48ml separate 20% intralipids infusions to run at 4ml/hr for 12 hours daily. To provide 760ml fluid, 36g AA, 144g DEX(1.01mg/kg/min), and 774 total kcals. Recommend to continue until PO intake greater than 65% avg meals 3. Hold lipids if TG above 400 mg/dl 4. TG/prealbumin q sunday/; daily wts 5. monitor ileostomy output 6. consider MVI/B12 supplementation post-op 7. ensure enlive TIDWM 8. monitor for TPN tolerance; wean as medically indicated given good PO hx Addendum: 07/07/19 at [address] Amended: Links added.
--- NOTE | 2019-07-07 14:02 | NUR ---
[facility] INFORMATION: REF: [id number] LOT: [id number] EXP: 09/19/2019
[2019-07-07] MEDS: TRACE ELEMENT IV SCH (14:26)
[2019-07-07] MEDS: [UNRECOGNIZED DRUG - OTHER] IV SCH (14:26)
[2019-07-07] MEDS: LYTES IV SCH (14:26)
[2019-07-07] MEDS: DEXT IV SCH (14:26)
[2019-07-07] MEDS: CALCIUM IV SCH (14:26)
[2019-07-07] MEDS: HYDROmorphone inj. 0.5 MG/0.5 ML DISP.SYRIN IV PRN (17:20)
--- NOTE | 2019-07-07 18:00 | NUR ---
Patient in room [facility]. I have received report from Anayeli WALLACE and had the opportunity to ask questions and assume patient care.
--- NOTE | 2019-07-07 18:19 | NUR ---
Problems reprioritized. Patient report given, questions answered & plan of care reviewed with Aruna WALLACE.
[2019-07-07 20:00] VITALS: BP 109/71
[2019-07-07] MEDS: insulin glargine (Lantus) pen - multi-dose SQ SCH (21:00)
[2019-07-07] MEDS: fat emulsion IV bag 250 ML IV SCH (21:00)
[2019-07-08] VITALS: BP 134/76
--- NOTE | 2019-07-08 06:20 | NUR ---
Problems reprioritized. Patient report given, questions answered & plan of care reviewed with Elizabeth WALLACE.
[2019-07-08 07:00] VITALS: BP 136/76
--- NOTE | 2019-07-08 07:17 | NUR ---
Encouraged patient to walk last night but refused as he stated that he is not feeling well and he's "low in gas". Spoke with patient with the importance to walk today and stated that " I will walk when I am ready, if anyone pushes me to walk, I will have to fight somebody".
[2019-07-08 07:45] LABS: ALANINE AMINOTRANSFERASE 40 U/L (12-78); ALBUMIN 2.1 G/DL (3.4-5.0); ALBUMIN/GLOBULIN RATIO 0.4 (1.1-1.5); ALKALINE PHOSPHATASE 250 IU/L (46-116); ANION GAP 4 (8-16); ASPARTATE AMINO TRANSFERASE 18 U/L (10-37); BILIRUBIN,TOTAL 0.2 MG/DL (0.1-1.0); BLOOD UREA NITROGEN 19 MG/DL (7-18); BUN/CREATININE RATIO 20.4 (5.4-32.0); CALCIUM 8.5 MG/DL (8.5-10.1); CHLORIDE 101 MMOL/L (99-107); CREATININE 0.93 MG/DL (0.60-1.10); GLUCOSE 108 MG/DL (70-104); MAGNESIUM 1.9 MG/DL (1.5-2.4); PHOSPHORUS 4.2 MG/DL (2.3-4.5); POTASSIUM 4.7 MMOL/L (3.5-5.1); SODIUM 134 MMOL/L (135-145); TOTAL CARBON DIOXIDE 28.6 MMOL/L (24-32); TOTAL PROTEIN 6.8 G/DL (6.4-8.2); eGFR 81 ML/MIN
[2019-07-08 07:57] LABS: BASOPHILS # (AUTO) 0.2 X10'3 (0-0.2); EOSINOPHILS # (AUTO) 0.2 X10'3 (0-0.9); EOSINOPHILS % (AUTO) 3.1 % (0-6); HEMATOCRIT 37.6 % (42.0-52.0); HEMOGLOBIN 12.8 g/dl (14.0-17.9); LYMPHOCYTES # (AUTO) 1.4 X10'3 (1.1-4.8); LYMPHOCYTES % (AUTO) 18.7 % (21-51); MEAN CORPUSCULAR HGB CONC 34.1 g/dL (33.0-36.5); MEAN CORPUSCULAR VOLUME 96.8 FL (78-98); MEAN PLATELET VOLUME 7.2 FL (7.4-10.4); MONOCYTES # (AUTO) 1.1 X10'3 (0-0.9); MONOCYTES % (AUTO) 15.5 % (2-12); NEUTROPHILS # (AUTO) 4.5 X10'3 (1.8-7.7); NEUTROPHILS % (AUTO) 60.5 % (42-75); PLATELET COUNT 636 X10'3 (140-440); RED BLOOD COUNT 3.89 X10'6 (4.70-6.10); RED CELL DISTRIBUTION WIDTH 13.6 % (11.5-14.5); WHITE BLOOD COUNT 7.4 X10'3 (4.5-11.0)
[2019-07-08 07:58] LABS: BASOPHILS % (AUTO) 1.9 % (0-1)
[2019-07-08] MEDS: K and/or MAG REPLACEMENT MC SCH ×2 (08:00→18:59)
[2019-07-08] MEDS: lactose-reduced food (Ensure Enlive) - 237ml bottle PO SCH ×3 (08:00→18:00)
[2019-07-08] MEDS: CefTRIAXone/D5W-Rocephin 1gm 50 ML IV SCH (09:07)
[2019-07-08] MEDS: pantoprazole 40 MG vial IV SCH (09:07)
[2019-07-08] MEDS: lactobacillus rhamnosus 10,000 MMU CELLS/CAPSULE PO SCH ×2 (09:08→20:11)
[2019-07-08] MEDS: heparin, porcine 5000 units/ml vial SQ SCH ×2 (09:08→20:12)
[2019-07-08] MEDS: furosemide 40mg tablet PO SCH (09:09)
[2019-07-08] MEDS: fluconazole 100mg tablet PO SCH (09:10)
[2019-07-08 09:22] LABS: TOTAL CELLS COUNTED 100
[2019-07-08 09:23] LABS: PLATELET ESTIMATE NORMAL
[2019-07-08] MEDS: piperacillin/tazo 3.375gm/50ml 50 ML IV SCH ×2 (09:25→16:32)
[2019-07-08] MEDS: MVI, adult No.4 with vit. K 10 ML in dextrose 5% water 500ml 500 ML IV SCH ×2 (09:25)
[2019-07-08] MEDS: HYDROcodone/acetaminophen 5mg/325mg tablet PO PRN ×3 (09:47→21:45)
--- NOTE | 2019-07-08 14:20 | NUR ---
PATIENT IS WALKING WITH PT AND TOLERATE WELL.
--- NOTE | 2019-07-08 15:32 | NUR ---
Per Dr. Cuellar Patient needs to be eating [address] before whining TPN
--- NOTE | 2019-07-08 18:00 | NUR ---
Patient in room [facility]. I have received report from Elizabeth and had the opportunity to ask questions and assume patient care.
--- NOTE | 2019-07-08 18:10 | NUR ---
Problems reprioritized. Patient report given, questions answered & plan of care reviewed with Chele RN.
[2019-07-08 20:00] VITALS: BP 124/84
[2019-07-08] MEDS: insulin regular, human U-100 3ml vial - multi-dose SQ SCH (20:14)
[2019-07-08] MEDS: insulin glargine (Lantus) pen - multi-dose SQ SCH (22:21)
[2019-07-08] MEDS: fat emulsion IV bag 250 ML IV SCH (22:25)
[2019-07-09] VITALS: BP 101/77
[2019-07-09] MEDS: TRACE ELEMENT IV SCH ×2 (00:23→15:14)
[2019-07-09] MEDS: piperacillin/tazo 3.375gm/50ml 50 ML IV SCH ×2 (00:23→08:02)
[2019-07-09] MEDS: LYTES IV SCH ×2 (00:23→15:14)
[2019-07-09] MEDS: DEXT IV SCH ×2 (00:23→15:14)
[2019-07-09] MEDS: CALCIUM IV SCH ×2 (00:23→15:14)
[2019-07-09] MEDS: [UNRECOGNIZED DRUG - OTHER] IV SCH ×2 (00:23→15:14)
[2019-07-09] MEDS: insulin regular, human U-100 3ml vial - multi-dose SQ SCH ×2 (02:58→20:32)
[2019-07-09 04:58] LABS: BASOPHILS # (AUTO) 0.1 X10'3 (0-0.2); BASOPHILS % (AUTO) 1.3 % (0-1); EOSINOPHILS # (AUTO) 0.2 X10'3 (0-0.9); EOSINOPHILS % (AUTO) 3.3 % (0-6); HEMATOCRIT 38.4 % (42.0-52.0); HEMOGLOBIN 12.7 g/dl (14.0-17.9); LYMPHOCYTES # (AUTO) 1.3 X10'3 (1.1-4.8); LYMPHOCYTES % (AUTO) 18.9 % (21-51); MEAN CORPUSCULAR HEMOGLOBIN 31.9 PG (27.0-31.0); MEAN CORPUSCULAR HGB CONC 33.1 g/dL (33.0-36.5); MEAN CORPUSCULAR VOLUME 96.3 FL (78-98); MEAN PLATELET VOLUME 7.1 FL (7.4-10.4); MONOCYTES # (AUTO) 0.9 X10'3 (0-0.9); MONOCYTES % (AUTO) 12.1 % (2-12); NEUTROPHILS # (AUTO) 4.6 X10'3 (1.8-7.7); NEUTROPHILS % (AUTO) 64.4 % (42-75); PLATELET COUNT 589 X10'3 (140-440); RED BLOOD COUNT 3.99 X10'6 (4.70-6.10); RED CELL DISTRIBUTION WIDTH 13.5 % (11.5-14.5); WHITE BLOOD COUNT 7.1 X10'3 (4.5-11.0)
[2019-07-09 05:13] LABS: ALANINE AMINOTRANSFERASE 30 U/L (12-78); ALBUMIN/GLOBULIN RATIO 0.4 (1.1-1.5); ALKALINE PHOSPHATASE 233 IU/L (46-116); ANION GAP 6 (8-16); ASPARTATE AMINO TRANSFERASE 20 U/L (10-37); BILIRUBIN,TOTAL 0.2 MG/DL (0.1-1.0); BLOOD UREA NITROGEN 20 MG/DL (7-18); CALCIUM 9.1 MG/DL (8.5-10.1); CHLORIDE 99 MMOL/L (99-107); GLUCOSE 101 MG/DL (70-104); POTASSIUM 4.6 MMOL/L (3.5-5.1); SODIUM 135 MMOL/L (135-145); TOTAL CARBON DIOXIDE 30.5 MMOL/L (24-32); TOTAL PROTEIN 6.7 G/DL (6.4-8.2); eGFR 75 ML/MIN
--- NOTE | 2019-07-09 06:24 | NUR ---
Problems reprioritized. Patient report given, questions answered & plan of care reviewed with Anne WALLACE.
--- NOTE | 2019-07-09 06:27 | NUR ---
Patient in room [facility] 355. I have received report from MADISON Jhaveri and had the opportunity to ask questions and assume patient care.
[2019-07-09] MEDS: CefTRIAXone/D5W-Rocephin 1gm 50 ML IV SCH (07:27)
[2019-07-09] MEDS: pantoprazole 40 MG vial IV SCH (07:32)
[2019-07-09] MEDS: furosemide 40mg tablet PO SCH (07:37)
[2019-07-09] MEDS: lactobacillus rhamnosus 10,000 MMU CELLS/CAPSULE PO SCH ×2 (07:37→20:50)
[2019-07-09] MEDS: methylnaltrexone br 12mg/0.6ml inj***SubQ only SQ SCH (07:39)
[2019-07-09] MEDS: heparin, porcine 5000 units/ml vial SQ SCH ×2 (07:41→20:50)
[2019-07-09] MEDS: ondansetron/PF 4mg/2ml inj IV PRN ×2 (07:56→14:18)
[2019-07-09] MEDS: HYDROmorphone inj. 0.5 MG/0.5 ML DISP.SYRIN IV PRN ×2 (07:57→20:50)
[2019-07-09 08:00] VITALS: BP 125/75
[2019-07-09] MEDS: K and/or MAG REPLACEMENT MC SCH ×2 (08:00→20:00)
[2019-07-09] MEDS: micafungin inj 100 MG in normal saline 100ml IV soln 100 ML IV SCH (08:03)
[2019-07-09] MEDS: lactose-reduced food (Ensure Enlive) - 237ml bottle PO SCH ×3 (08:16→18:00)
[2019-07-09] MEDS: MVI, adult No.4 with vit. K 10 ML in dextrose 5% water 500ml 500 ML IV SCH ×2 (09:40)
[2019-07-09] MEDS: levoFLOXACIN-Levaquin 750MG/D5 150 ML IV SCH (11:32)
[2019-07-09 11:47] VITALS: BP 113/74
[2019-07-09] MEDS: metroNIDAZOLE-Flagyl 500mg/NS 100 ML IV SCH ×2 (12:07→20:50)
--- NOTE | 2019-07-09 15:02 | NUR ---
Reassessment: Pt PO meals/ONS fluctuates carb controlled/mechanical soft/low-fiber diet roughly 75% avg w/ 25% most recent ensure enlive overall 25-50% avg ONS. At this time pt meeting protein needs post-op purely through PO nutrition roughly 1135-4653 kcals and 115-130g protein given PO hx. Not including additional 634 kcals/36g AA via TPN. Pt seen by ALONSO today and reports nausea r/t multiple meds impacting PO meals today. Pt reports is trying to drink all of ensures throughout the day but texture can get monotonous. Pt is agreeable to Adrian protein shakes BIDBD for wound healing; ALONSO [email or web address] MD approval and notified MD. To continue TPN until 2400kcal/day PO per surgeon. Pt would benefit from weaning TPN if surgeon agreeable given functional gut Ileostomy 350ml output, PO 75% avg most meals, and receiving ONS 25-50% as stated above. If to have nutrition support would benefit from EN given previously stated reasons. Will continue to monitor. Recommend: 1. Continue carb controlled, mechanical soft, low fiber diet 2. Low dose supplemental TPN per surgeon request using Clinimix E 5/20 at 30ml/hr goal w/ 48ml separate 20% intralipids infusions to run at 4ml/hr for 12 hours daily. To provide 760ml fluid, 36g AA, 144g DEX(1.01mg/kg/min), and 774 total kcals. Recommend to continue until PO intake greater than 65% avg meals 3. Hold lipids if TG above 400 mg/dl 4. TG/prealbumin q sunday/; daily wts 5. monitor ileostomy output 6. consider MVI/B12 supplementation post-op 7. ensure enlive TIDWM; once vanilla/chocolate Adrian shakes BIDBD verified change to ensure enlive at lunches 8. monitor for TPN tolerance; wean as medically indicated given good PO hx and functional gut Addendum: 07/09/19 at [address] Amended: Links added.
[2019-07-09] MEDS: ampicillin inj 2 GM in normal saline 100ml IV soln 100 ML IV SCH ×2 (15:05→20:50)
[2019-07-09] MEDS: HYDROcodone/acetaminophen 5mg/325mg tablet PO PRN (18:05)
--- NOTE | 2019-07-09 19:46 | NUR ---
Problems reprioritized. Patient report given, questions answered & plan of care reviewed with Faiza RN. Pt c/o abd pain and nausea, PRN medication given with good results. Dressing change as ordered. Pt started on Flagyl, Ampicillin and Levaquin this shift; Pt tolerated well. prior ABX D/C'd. PIV x2 removed with intact cannula, new PIV placed on right.
[2019-07-09 20:00] VITALS: BP 127/73
[2019-07-09] MEDS: fat emulsion IV bag 250 ML IV SCH (20:50)
[2019-07-09] MEDS: temazepam 15mg capsule PO PRN (21:08)
[2019-07-09] MEDS: insulin glargine (Lantus) pen - multi-dose SQ SCH (22:03)
[2019-07-10] VITALS: BP 115/67
[2019-07-10] MEDS: insulin regular, human U-100 3ml vial - multi-dose SQ SCH ×4 (02:19→21:05)
[2019-07-10] MEDS: ampicillin inj 2 GM in normal saline 100ml IV soln 100 ML IV SCH ×4 (02:20→19:38)
[2019-07-10] MEDS: HYDROmorphone inj. 0.5 MG/0.5 ML DISP.SYRIN IV PRN ×2 (04:16→11:55)
--- NOTE | 2019-07-10 06:00 | NUR ---
Patient in room [facility]. I have received report from MADISON Kendall and had the opportunity to ask questions and assume patient care.
[2019-07-10 06:55] LABS: BASOPHILS # (AUTO) 0.1 X10'3 (0-0.2); BASOPHILS % (AUTO) 0.9 % (0-1); EOSINOPHILS # (AUTO) 0.3 X10'3 (0-0.9); HEMATOCRIT 39.7 % (42.0-52.0); HEMOGLOBIN 13.2 g/dl (14.0-17.9); LYMPHOCYTES # (AUTO) 1.6 X10'3 (1.1-4.8); LYMPHOCYTES % (AUTO) 22.4 % (21-51); MEAN CORPUSCULAR HGB CONC 33.3 g/dL (33.0-36.5); MEAN PLATELET VOLUME 7.3 FL (7.4-10.4); MONOCYTES # (AUTO) 0.8 X10'3 (0-0.9); MONOCYTES % (AUTO) 11.9 % (2-12); NEUTROPHILS # (AUTO) 4.3 X10'3 (1.8-7.7); NEUTROPHILS % (AUTO) 60.8 % (42-75); PLATELET COUNT 520 X10'3 (140-440); RED BLOOD COUNT 4.13 X10'6 (4.70-6.10); RED CELL DISTRIBUTION WIDTH 13.7 % (11.5-14.5); WHITE BLOOD COUNT 7.1 X10'3 (4.5-11.0)
[2019-07-10 07:00] VITALS: BP 122/67
[2019-07-10 07:27] LABS: ALANINE AMINOTRANSFERASE 30 U/L (12-78); ALBUMIN 2.1 G/DL (3.4-5.0); ALBUMIN/GLOBULIN RATIO 0.5 (1.1-1.5); ALKALINE PHOSPHATASE 221 IU/L (46-116); ANION GAP 5 (8-16); ASPARTATE AMINO TRANSFERASE 22 U/L (10-37); BILIRUBIN,TOTAL 0.1 MG/DL (0.1-1.0); BLOOD UREA NITROGEN 19 MG/DL (7-18); BUN/CREATININE RATIO 18.8 (5.4-32.0); CALCIUM 8.6 MG/DL (8.5-10.1); CHLORIDE 100 MMOL/L (99-107); CREATININE 1.01 MG/DL (0.60-1.10); GLUCOSE 108 MG/DL (70-104); MAGNESIUM 2.1 MG/DL (1.5-2.4); PHOSPHORUS 3.8 MG/DL (2.3-4.5); POTASSIUM 4.8 MMOL/L (3.5-5.1); SODIUM 135 MMOL/L (135-145); TOTAL CARBON DIOXIDE 29.6 MMOL/L (24-32); TOTAL PROTEIN 6.7 G/DL (6.4-8.2); TRIGLYCERIDES 285 MG/DL (20-135); eGFR 74 ML/MIN
[2019-07-10] MEDS: lactobacillus rhamnosus 10,000 MMU CELLS/CAPSULE PO SCH ×2 (07:33→19:40)
[2019-07-10] MEDS: pantoprazole 40 MG vial IV SCH (07:33)
[2019-07-10] MEDS: furosemide 40mg tablet PO SCH (07:33)
[2019-07-10] MEDS: heparin, porcine 5000 units/ml vial SQ SCH ×2 (07:33→19:41)
[2019-07-10] MEDS: micafungin inj 100 MG in normal saline 100ml IV soln 100 ML IV SCH (07:34)
[2019-07-10] MEDS: levoFLOXACIN-Levaquin 750MG/D5 150 ML IV SCH (07:34)
[2019-07-10 07:56] LABS: TOTAL CELLS COUNTED 100
[2019-07-10 07:57] LABS: LARGE PLATELETS FEW; PLATELET ESTIMATE INCREASED
[2019-07-10] MEDS: K and/or MAG REPLACEMENT MC SCH ×2 (08:00→20:00)
[2019-07-10] MEDS: lactose-reduced food (Ensure Enlive) - 237ml bottle PO SCH ×3 (08:34→19:00)
[2019-07-10] MEDS: metroNIDAZOLE-Flagyl 500mg/NS 100 ML IV SCH ×2 (08:34→21:15)
[2019-07-10] MEDS: MVI, adult No.4 with vit. K 10 ML in dextrose 5% water 500ml 500 ML IV SCH ×2 (10:13)
[2019-07-10] MEDS: ondansetron/PF 4mg/2ml inj IV PRN ×2 (12:02→19:44)
[2019-07-10] MEDS: Trace element-5 inj. 1 ML in AA 5 %/CALCIUM/LYTES/DEXT 20% 2,000 ML IV SCH (13:30)
--- NOTE | 2019-07-10 18:30 | NUR ---
Problems reprioritized. Patient report given, questions answered & plan of care reviewed with MADIOSN Delaney.
--- NOTE | 2019-07-10 18:50 | NUR ---
Patient in room [facility] 355. I have received report from Juan WALLACE and had the opportunity to ask questions and assume patient care.
[2019-07-10] MEDS: HYDROcodone/acetaminophen 5mg/325mg tablet PO PRN (19:47)
[2019-07-10 20:00] VITALS: BP 120/70
[2019-07-10] MEDS: insulin glargine (Lantus) pen - multi-dose SQ SCH (21:09)
[2019-07-10] MEDS: fat emulsion IV bag 250 ML IV SCH (21:15)
[2019-07-11] VITALS: BP 150/80
[2019-07-11] MEDS: temazepam 15mg capsule PO PRN ×2 (00:48→23:08)
[2019-07-11] MEDS: HYDROcodone/acetaminophen 5mg/325mg tablet PO PRN ×3 (00:48→17:10)
[2019-07-11] MEDS: ampicillin inj 2 GM in normal saline 100ml IV soln 100 ML IV SCH ×4 (02:22→19:29)
[2019-07-11] MEDS: insulin regular, human U-100 3ml vial - multi-dose SQ SCH ×4 (02:48→20:07)
[2019-07-11 07:14] LABS: BASOPHILS # (AUTO) 0.1 X10'3 (0-0.2); EOSINOPHILS # (AUTO) 0.4 X10'3 (0-0.9); EOSINOPHILS % (AUTO) 4.7 % (0-6); HEMATOCRIT 38.5 % (42.0-52.0); HEMOGLOBIN 13.1 g/dl (14.0-17.9); LYMPHOCYTES # (AUTO) 1.8 X10'3 (1.1-4.8); LYMPHOCYTES % (AUTO) 20.8 % (21-51); MEAN CORPUSCULAR HEMOGLOBIN 33.1 PG (27.0-31.0); MEAN CORPUSCULAR VOLUME 97.5 FL (78-98); MEAN PLATELET VOLUME 7.4 FL (7.4-10.4); MONOCYTES # (AUTO) 0.9 X10'3 (0-0.9); MONOCYTES % (AUTO) 10.6 % (2-12); NEUTROPHILS # (AUTO) 5.4 X10'3 (1.8-7.7); NEUTROPHILS % (AUTO) 62.9 % (42-75); PLATELET COUNT 558 X10'3 (140-440); RED BLOOD COUNT 3.95 X10'6 (4.70-6.10); RED CELL DISTRIBUTION WIDTH 13.6 % (11.5-14.5); WHITE BLOOD COUNT 8.5 X10'3 (4.5-11.0)
[2019-07-11] MEDS: furosemide 40mg tablet PO SCH (07:31)
[2019-07-11] MEDS: lactobacillus rhamnosus 10,000 MMU CELLS/CAPSULE PO SCH ×2 (07:31→19:30)
[2019-07-11] MEDS: K and/or MAG REPLACEMENT MC SCH ×2 (07:35→19:38)
[2019-07-11] MEDS: pantoprazole 40 MG vial IV SCH (07:35)
[2019-07-11 07:40] LABS: ALANINE AMINOTRANSFERASE 26 U/L (12-78); ALBUMIN 1.3 G/DL (3.4-5.0); ALBUMIN/GLOBULIN RATIO 0.2 (1.1-1.5); ALKALINE PHOSPHATASE 212 IU/L (46-116); ANION GAP 5 (8-16); ASPARTATE AMINO TRANSFERASE 19 U/L (10-37); BILIRUBIN,TOTAL 0.1 MG/DL (0.1-1.0); BLOOD UREA NITROGEN 18 MG/DL (7-18); BUN/CREATININE RATIO 19.6 (5.4-32.0); CALCIUM 8.7 MG/DL (8.5-10.1); CHLORIDE 101 MMOL/L (99-107); CREATININE 0.92 MG/DL (0.60-1.10); GLUCOSE 113 MG/DL (70-104); MAGNESIUM 2.1 MG/DL (1.5-2.4); PHOSPHORUS 3.3 MG/DL (2.3-4.5); POTASSIUM 4.4 MMOL/L (3.5-5.1); SODIUM 136 MMOL/L (135-145); TOTAL PROTEIN 6.7 G/DL (6.4-8.2); eGFR 82 ML/MIN
[2019-07-11] MEDS: levoFLOXACIN-Levaquin 750MG/D5 150 ML IV SCH (07:47)
[2019-07-11] MEDS: heparin, porcine 5000 units/ml vial SQ SCH ×2 (07:49→19:30)
[2019-07-11] MEDS: lactose-reduced food (Ensure Enlive) - 237ml bottle PO SCH ×6 (07:49→18:00)
[2019-07-11] MEDS: methylnaltrexone br 12mg/0.6ml inj***SubQ only SQ SCH (07:51)
[2019-07-11 08:00] VITALS: BP 110/64
[2019-07-11 08:40] LABS: PLATELET ESTIMATE INCREASED; POLYCHROMASIA 1+; TOTAL CELLS COUNTED 100
[2019-07-11] MEDS: micafungin inj 100 MG in normal saline 100ml IV soln 100 ML IV SCH (08:45)
[2019-07-11] MEDS: metroNIDAZOLE-Flagyl 500mg/NS 100 ML IV SCH ×2 (08:56→20:45)
[2019-07-11] MEDS: MVI, adult No.4 with vit. K 10 ML in dextrose 5% water 500ml 500 ML IV SCH ×2 (10:15)
--- NOTE | 2019-07-11 10:35 | NUR ---
Dr. Ag rounded for Dr. Cuellar. No new orders at this time.
[2019-07-11 12:00] VITALS: BP 122/69
[2019-07-11] MEDS: HYDROmorphone inj. 0.5 MG/0.5 ML DISP.SYRIN IV PRN (12:08)
[2019-07-11] MEDS: Trace element-5 inj. 1 ML in AA 5 %/CALCIUM/LYTES/DEXT 20% 2,000 ML IV SCH (15:04)
--- NOTE | 2019-07-11 15:43 | NUR ---
Reassessment: Patient's PO intake appears to be improving since last RD assessment. Combined PO intake of meals/ONS for dinner 07/09 and 07/10 breakfast and lunch equal ~2197 kcal and 77 g protein meeting 100% estimated energy needs and 73% estimated protein needs. Pt would benefit from weaning TPN since pt able to meet estimated nutrient needs with PO intake alone and with a functioning gut. Discussed recommendations with RN, although TPN changes are per MD. Pt will meet estimated nutrient need if he continues with roughly 50-75% PO intake of meals and ~50% PO intake of ONS combined. LBM 07/09, documented with 350 mL stool output per I&O which is WNL. Will continue to follow closely. Recommend: 1. Continue carb controlled, mechanical soft, low fiber diet 2. Low dose supplemental TPN per surgeon request using Clinimix E 07/08 at 30ml/hr goal w/ 48ml separate 20% intralipids infusions to run at 4ml/hr for 12 hours daily. To provide 760ml fluid, 36g AA, 144g DEX(1.01mg/kg/min), and 774 total kcals 3. Hold lipids if TG above 400 mg/dl 4. TG/prealbumin q Sunday/; daily wts 5. monitor ileostomy output 6. consider MVI/B12 supplementation post-op 7. Ensure Enlive TIDWM; once vanilla/chocolate Adrian shakes BIDBD verified change to Ensure Enlive at lunches 8. monitor for TPN tolerance; wean as medically indicated given good PO hx and functional gut Addendum: 07/11/19 at [address] Amended: Links added.
[2019-07-11 19:00] VITALS: BP 135/79
[2019-07-11] MEDS: insulin glargine (Lantus) pen - multi-dose SQ SCH (20:09)
[2019-07-11] MEDS: fat emulsion IV bag 250 ML IV SCH (22:19)
[2019-07-12] VITALS: BP 125/70
[2019-07-12] MEDS: ampicillin inj 2 GM in normal saline 100ml IV soln 100 ML IV SCH ×4 (02:08→20:22)
[2019-07-12] MEDS: insulin regular, human U-100 3ml vial - multi-dose SQ SCH ×2 (02:12→08:54)
[2019-07-12 05:05] LABS: BASOPHILS # (AUTO) 0.1 X10'3 (0-0.2); BASOPHILS % (AUTO) 1.1 % (0-1); EOSINOPHILS # (AUTO) 0.4 X10'3 (0-0.9); EOSINOPHILS % (AUTO) 4.4 % (0-6); HEMATOCRIT 38.5 % (42.0-52.0); HEMOGLOBIN 12.8 g/dl (14.0-17.9); LYMPHOCYTES # (AUTO) 1.7 X10'3 (1.1-4.8); MEAN CORPUSCULAR HGB CONC 33.2 g/dL (33.0-36.5); MEAN CORPUSCULAR VOLUME 96.2 FL (78-98); MEAN PLATELET VOLUME 7.3 FL (7.4-10.4); MONOCYTES # (AUTO) 0.9 X10'3 (0-0.9); MONOCYTES % (AUTO) 9.6 % (2-12); NEUTROPHILS # (AUTO) 6.2 X10'3 (1.8-7.7); NEUTROPHILS % (AUTO) 66.9 % (42-75); PLATELET COUNT 525 X10'3 (140-440); RED CELL DISTRIBUTION WIDTH 13.4 % (11.5-14.5); WHITE BLOOD COUNT 9.2 X10'3 (4.5-11.0)
[2019-07-12 05:24] LABS: ALANINE AMINOTRANSFERASE 23 U/L (12-78); ALBUMIN/GLOBULIN RATIO 0.4 (1.1-1.5); ALKALINE PHOSPHATASE 180 IU/L (46-116); ANION GAP 4 (8-16); ASPARTATE AMINO TRANSFERASE 20 U/L (10-37); BILIRUBIN,TOTAL 0.2 MG/DL (0.1-1.0); BLOOD UREA NITROGEN 19 MG/DL (7-18); BUN/CREATININE RATIO 17.9 (5.4-32.0); CALCIUM 8.7 MG/DL (8.5-10.1); CHLORIDE 101 MMOL/L (99-107); CREATININE 1.06 MG/DL (0.60-1.10); GLUCOSE 107 MG/DL (70-104); MAGNESIUM 2.1 MG/DL (1.5-2.4); PHOSPHORUS 3.9 MG/DL (2.3-4.5); POTASSIUM 4.7 MMOL/L (3.5-5.1); SODIUM 137 MMOL/L (135-145); TOTAL CARBON DIOXIDE 31.8 MMOL/L (24-32); TOTAL PROTEIN 6.9 G/DL (6.4-8.2); eGFR 70 ML/MIN
[2019-07-12] MEDS: HYDROcodone/acetaminophen 5mg/325mg tablet PO PRN ×2 (06:47→16:51)
[2019-07-12 06:59] LABS: NUCLEATED RED BLOOD CELLS 1 /100WBC (0-0); PLATELET ESTIMATE INCREASED; TOTAL CELLS COUNTED 100
[2019-07-12 07:00] VITALS: BP 121/73
--- NOTE | 2019-07-12 07:00 | NUR ---
Patient in room [facility] 355. I have received report from Dale WALLACE with Student and had the opportunity to ask questions and assume patient care.
[2019-07-12] MEDS: K and/or MAG REPLACEMENT MC SCH ×2 (08:00→20:00)
[2019-07-12] MEDS: pantoprazole 40 MG vial IV SCH (08:00)
[2019-07-12] MEDS: lactose-reduced food (Ensure Enlive) - 237ml bottle PO SCH ×3 (08:00→18:33)
[2019-07-12] MEDS: lactobacillus rhamnosus 10,000 MMU CELLS/CAPSULE PO SCH ×2 (08:58→20:22)
[2019-07-12] MEDS: heparin, porcine 5000 units/ml vial SQ SCH ×2 (08:58→20:00)
[2019-07-12] MEDS: furosemide 40mg tablet PO SCH (08:58)
[2019-07-12] MEDS: MVI, adult No.4 with vit. K 10 ML in dextrose 5% water 500ml 500 ML IV SCH ×2 (09:00)
[2019-07-12] MEDS: metroNIDAZOLE-Flagyl 500mg/NS 100 ML IV SCH (10:06)
[2019-07-12 11:00] VITALS: BP 112/76
[2019-07-12] MEDS: micafungin inj 100 MG in normal saline 100ml IV soln 100 ML IV SCH (11:48)
[2019-07-12] MEDS: levoFLOXACIN-Levaquin 750MG/D5 150 ML IV SCH (11:48)
--- NOTE | 2019-07-12 15:40 | NUR ---
PAGER ID: [phone] MESSAGE: Clari-Surg [phone] Re: Graves 355A ERCP in am can patient have clear diet til midnight or some ice chips
[2019-07-12 18:00] VITALS: BP 125/78
--- NOTE | 2019-07-12 18:21 | NUR ---
PAGER ID: [phone] MESSAGE: Clari-Surg [phone] Re: Sheryl ElB can we hang NS @ 20 for patient antibiotics please call
--- NOTE | 2019-07-12 18:35 | NUR ---
Problems reprioritized. Patient report given, questions answered & plan of care reviewed with Dale WALLACE.
[2019-07-12] MEDS: metroNIDAZOLE 500mg tablet PO SCH (20:22)
[2019-07-12] MEDS: normal saline 1000ml 1,000 ML IV SCH (20:24)
[2019-07-12] MEDS: insulin glargine (Lantus) pen - multi-dose SQ SCH (21:00)
[2019-07-13] VITALS: BP 131/78
[2019-07-13] MEDS: ampicillin inj 2 GM in normal saline 100ml IV soln 100 ML IV SCH ×4 (01:32→20:57)
[2019-07-13 05:14] LABS: ALANINE AMINOTRANSFERASE 24 U/L (12-78); ALBUMIN 2.1 G/DL (3.4-5.0); ALBUMIN/GLOBULIN RATIO 0.5 (1.1-1.5); ALKALINE PHOSPHATASE 164 IU/L (46-116); ANION GAP 5 (8-16); ASPARTATE AMINO TRANSFERASE 21 U/L (10-37); BILIRUBIN,TOTAL 0.1 MG/DL (0.1-1.0); BLOOD UREA NITROGEN 17 MG/DL (7-18); BUN/CREATININE RATIO 16.5 (5.4-32.0); CALCIUM 8.7 MG/DL (8.5-10.1); CHLORIDE 101 MMOL/L (99-107); CREATININE 1.03 MG/DL (0.60-1.10); GLUCOSE 106 MG/DL (70-104); POTASSIUM 4.3 MMOL/L (3.5-5.1); SODIUM 134 MMOL/L (135-145); TOTAL CARBON DIOXIDE 28.5 MMOL/L (24-32); TOTAL PROTEIN 6.3 G/DL (6.4-8.2); TRIGLYCERIDES 218 MG/DL (20-135); eGFR 72 ML/MIN
[2019-07-13 05:15] LABS: BASOPHILS # (AUTO) 0.1 X10'3 (0-0.2); BASOPHILS % (AUTO) 1.2 % (0-1); EOSINOPHILS # (AUTO) 0.3 X10'3 (0-0.9); EOSINOPHILS % (AUTO) 3.2 % (0-6); HEMATOCRIT 36.2 % (42.0-52.0); HEMOGLOBIN 12.1 g/dl (14.0-17.9); LYMPHOCYTES # (AUTO) 1.7 X10'3 (1.1-4.8); LYMPHOCYTES % (AUTO) 17.1 % (21-51); MEAN CORPUSCULAR HEMOGLOBIN 32.3 PG (27.0-31.0); MEAN CORPUSCULAR HGB CONC 33.6 g/dL (33.0-36.5); MEAN CORPUSCULAR VOLUME 96.3 FL (78-98); MEAN PLATELET VOLUME 7.1 FL (7.4-10.4); MONOCYTES # (AUTO) 0.9 X10'3 (0-0.9); MONOCYTES % (AUTO) 9.6 % (2-12); NEUTROPHILS # (AUTO) 6.8 X10'3 (1.8-7.7); NEUTROPHILS % (AUTO) 68.9 % (42-75); PLATELET COUNT 513 X10'3 (140-440); RED BLOOD COUNT 3.76 X10'6 (4.70-6.10); RED CELL DISTRIBUTION WIDTH 13.7 % (11.5-14.5); WHITE BLOOD COUNT 9.8 X10'3 (4.5-11.0)
[2019-07-13 07:00] VITALS: BP 135/83
[2019-07-13 07:30] LABS: PLATELET ESTIMATE INCREASED; POLYCHROMASIA 1+; TOTAL CELLS COUNTED 100
[2019-07-13] MEDS: K and/or MAG REPLACEMENT MC SCH ×2 (08:00→20:00)
[2019-07-13] MEDS: multivitamins, therapeutics tablet PO SCH (08:43)
[2019-07-13] MEDS: furosemide 40mg tablet PO SCH (08:43)
[2019-07-13] MEDS: lactobacillus rhamnosus 10,000 MMU CELLS/CAPSULE PO SCH ×2 (08:43→20:57)
[2019-07-13] MEDS: ondansetron/PF 4mg/2ml inj IV PRN (08:44)
[2019-07-13] MEDS: methylnaltrexone br 12mg/0.6ml inj***SubQ only SQ SCH (08:44)
[2019-07-13] MEDS: metroNIDAZOLE 500mg tablet PO SCH ×2 (08:44→20:57)
[2019-07-13] MEDS: pantoprazole 40 MG vial IV SCH (08:44)
[2019-07-13] MEDS: micafungin inj 100 MG in normal saline 100ml IV soln 100 ML IV SCH (08:45)
[2019-07-13] MEDS: lactose-reduced food (Ensure Enlive) - 237ml bottle PO SCH ×3 (08:45→18:07)
[2019-07-13] MEDS: heparin, porcine 5000 units/ml vial SQ SCH ×2 (08:47→20:57)
[2019-07-13 11:00] VITALS: BP 121/75
[2019-07-13] MEDS: levoFLOXACIN 750MG TABLET PO SCH (11:21)
--- NOTE | 2019-07-13 11:59 | NUR ---
Per Dr Ag have primary RN contact hospitalist to address with Dr Terry if he still wants patient on all his antibiotics.
[2019-07-13] MEDS: HYDROcodone/acetaminophen 5mg/325mg tablet PO PRN ×2 (12:26→20:57)
--- NOTE | 2019-07-13 18:21 | NUR ---
Problems reprioritized. Patient report given, questions answered & plan of care reviewed with MADISON Baker.
[2019-07-13 20:00] VITALS: BP 144/81
[2019-07-13] MEDS: insulin glargine (Lantus) pen - multi-dose SQ SCH (21:00)
[2019-07-14] VITALS: BP 117/77
[2019-07-14] MEDS: ampicillin inj 2 GM in normal saline 100ml IV soln 100 ML IV SCH ×4 (02:15→21:52)
--- NOTE | 2019-07-14 06:24 | NUR ---
Patient in room [facility] 355. I have received report from Samuel WALLACE and had the opportunity to ask questions and assume patient care.
[2019-07-14 07:00] VITALS: BP 134/76
[2019-07-14] MEDS: lactobacillus rhamnosus 10,000 MMU CELLS/CAPSULE PO SCH ×2 (07:16→21:53)
[2019-07-14] MEDS: multivitamins, therapeutics tablet PO SCH (07:16)
[2019-07-14] MEDS: pantoprazole 40 MG vial IV SCH (07:16)
[2019-07-14] MEDS: HYDROcodone/acetaminophen 5mg/325mg tablet PO PRN ×3 (07:16→21:52)
[2019-07-14] MEDS: metroNIDAZOLE 500mg tablet PO SCH ×2 (07:16→21:53)
[2019-07-14] MEDS: heparin, porcine 5000 units/ml vial SQ SCH ×2 (07:17→22:03)
[2019-07-14] MEDS: K and/or MAG REPLACEMENT MC SCH ×2 (08:00→19:27)
[2019-07-14] MEDS: lactose-reduced food (Ensure Enlive) - 237ml bottle PO SCH ×3 (08:00→18:00)
[2019-07-14] MEDS: furosemide 40mg tablet PO SCH (08:59)
[2019-07-14] MEDS: micafungin inj 100 MG in normal saline 100ml IV soln 100 ML IV SCH (09:00)
[2019-07-14 11:00] VITALS: BP 133/84
[2019-07-14 11:25] LABS: BASOPHILS # (AUTO) 0.1 X10'3 (0-0.2); BASOPHILS % (AUTO) 1.3 % (0-1); EOSINOPHILS # (AUTO) 0.2 X10'3 (0-0.9); EOSINOPHILS % (AUTO) 2.3 % (0-6); HEMATOCRIT 38.8 % (42.0-52.0); LYMPHOCYTES # (AUTO) 1.8 X10'3 (1.1-4.8); LYMPHOCYTES % (AUTO) 19.7 % (21-51); MEAN CORPUSCULAR HEMOGLOBIN 32.3 PG (27.0-31.0); MEAN CORPUSCULAR HGB CONC 33.4 g/dL (33.0-36.5); MEAN CORPUSCULAR VOLUME 96.7 FL (78-98); MEAN PLATELET VOLUME 7.3 FL (7.4-10.4); MONOCYTES # (AUTO) 0.7 X10'3 (0-0.9); MONOCYTES % (AUTO) 7.3 % (2-12); NEUTROPHILS # (AUTO) 6.3 X10'3 (1.8-7.7); NEUTROPHILS % (AUTO) 69.4 % (42-75); PLATELET COUNT 491 X10'3 (140-440); RED BLOOD COUNT 4.01 X10'6 (4.70-6.10); RED CELL DISTRIBUTION WIDTH 13.7 % (11.5-14.5); WHITE BLOOD COUNT 9.1 X10'3 (4.5-11.0)
[2019-07-14 11:32] LABS: ALANINE AMINOTRANSFERASE 24 U/L (12-78); ALBUMIN 2.2 G/DL (3.4-5.0); ALBUMIN/GLOBULIN RATIO 0.5 (1.1-1.5); ALKALINE PHOSPHATASE 162 IU/L (46-116); ANION GAP 5 (8-16); ASPARTATE AMINO TRANSFERASE 26 U/L (10-37); BILIRUBIN,TOTAL 0.1 MG/DL (0.1-1.0); BLOOD UREA NITROGEN 16 MG/DL (7-18); BUN/CREATININE RATIO 16.3 (5.4-32.0); CALCIUM 8.5 MG/DL (8.5-10.1); CHLORIDE 102 MMOL/L (99-107); CREATININE 0.98 MG/DL (0.60-1.10); GLUCOSE 132 MG/DL (70-104); MAGNESIUM 1.9 MG/DL (1.5-2.4); PHOSPHORUS 3.7 MG/DL (2.3-4.5); POTASSIUM 4.2 MMOL/L (3.5-5.1); SODIUM 136 MMOL/L (135-145); TOTAL CARBON DIOXIDE 28.9 MMOL/L (24-32); TOTAL PROTEIN 6.5 G/DL (6.4-8.2); TRIGLYCERIDES 273 MG/DL (20-135); eGFR 77 ML/MIN
--- NOTE | 2019-07-14 11:40 | NUR ---
Reassessment 07/13: Now off TPN. Patient's PO intake average 75% with 75-100% average intake of ensure enlive. He is able to meet his needs with PO diet based on calorie count and protein assessment. Will be able to meet needs if he continues with roughly 50-75% PO intake of meals and ~50% PO intake of ONS combined. LBM 07/12, documented with 700 mL stool output per I&O which is WNL. Will continue to follow closely. Noted a weight difference of 102 kg and 88.9 kg in just one days from 06/30 to 07/01 and pt weight now between 88-91.5 kg, likely that previous weights inaccurate since weight has been stable for about two weeks. Continue to follow. Recommend: 1. Continue carb controlled, mechanical soft, low fiber diet 2. monitor ileostomy output 3. consider MVI/B12 supplementation post-op 4. Ensure Enlive TIDWM Addendum: 07/14/19 at [address] Amended: Links added.
[2019-07-14] MEDS: levoFLOXACIN 750MG TABLET PO SCH (12:01)
--- NOTE | 2019-07-14 12:13 | NUR ---
Patient refused midabdomen surgical incision dressing change in my shift but requested to have it done tonight after dinner instead. Addendum: 07/14/19 at 1834 by Jas Melchor RN Problems reprioritized. Patient report given, questions answered & plan of care reviewed with Samuel WALLACE.
[2019-07-14] MEDS: ondansetron/PF 4mg/2ml inj IV PRN ×2 (13:06→22:23)
[2019-07-14] MEDS: JUVEN Shake w/Arg/Glut/Ca2+Bmb (Juven 19.3gm) pkt 240ml PO SCH (17:30)
[2019-07-14 17:38] LABS: TOTAL CELLS COUNTED 100
[2019-07-14 17:39] LABS: PLATELET ESTIMATE INCREASED
[2019-07-14 17:40] LABS: POLYCHROMASIA 1+
[2019-07-14 20:00] VITALS: BP 154/85
[2019-07-14] MEDS: insulin glargine (Lantus) pen - multi-dose SQ SCH (21:00)
[2019-07-14] MEDS: diatr meglu/diatrizoate 30ml oral sol.-(3 dose) bottle PO SCH (21:53)
[2019-07-15] VITALS: BP 118/79
[2019-07-15] MEDS: ampicillin inj 2 GM in normal saline 100ml IV soln 100 ML IV SCH ×4 (02:17→20:02)
--- NOTE | 2019-07-15 06:20 | NUR ---
Patient in room [facility]. I have received report from MADISON Baker and had the opportunity to ask questions and assume patient care.
[2019-07-15 07:00] VITALS: BP 140/85
[2019-07-15] MEDS: diatr meglu/diatrizoate 30ml oral sol.-(3 dose) bottle PO SCH ×2 (07:17→10:16)
[2019-07-15] MEDS: pantoprazole 40 MG vial IV SCH (07:22)
[2019-07-15] MEDS: methylnaltrexone br 12mg/0.6ml inj***SubQ only SQ SCH (07:24)
[2019-07-15] MEDS: heparin, porcine 5000 units/ml vial SQ SCH ×2 (07:24→20:06)
[2019-07-15] MEDS: micafungin inj 100 MG in normal saline 100ml IV soln 100 ML IV SCH (07:24)
[2019-07-15] MEDS: lactose-reduced food (Ensure Enlive) - 237ml bottle PO SCH ×3 (08:00→18:00)
[2019-07-15] MEDS: K and/or MAG REPLACEMENT MC SCH ×2 (08:00→19:44)
--- NOTE | 2019-07-15 08:00 | NUR ---
PO medications not given at scheduled 0800 time due to pt NPO status for abdominal CT.
[2019-07-15] MEDS: ondansetron/PF 4mg/2ml inj IV PRN ×2 (08:13→20:05)
[2019-07-15] MEDS ORDERED: iohexol 300mg/ml 100ml inj. ONE (10:14)
--- NOTE | 2019-07-15 10:20 | NUR ---
Patient to CT. Resting comfortably in wheelchair, no s/sx of distress. Addendum: 07/15/19 at 1214 by Hazel Meier RN [address]
[2019-07-15] MEDS: lactobacillus rhamnosus 10,000 MMU CELLS/CAPSULE PO SCH ×2 (11:46→20:06)
[2019-07-15] MEDS: furosemide 40mg tablet PO SCH (11:46)
[2019-07-15] MEDS: multivitamins, therapeutics tablet PO SCH (11:46)
[2019-07-15] MEDS: metroNIDAZOLE 500mg tablet PO SCH ×2 (11:46→20:06)
[2019-07-15] MEDS: levoFLOXACIN 750MG TABLET PO SCH (11:46)
[2019-07-15] MEDS: HYDROcodone/acetaminophen 5mg/325mg tablet PO PRN ×2 (11:46→20:05)
[2019-07-15 12:00] VITALS: BP 157/77
--- NOTE | 2019-07-15 13:02 | NUR ---
PAGER ID: [phone] MESSAGE: [id number], CT resulted. Patient requesting food. OK to feed?
--- NOTE | 2019-07-15 18:05 | NUR ---
Problems reprioritized. Patient report given, questions answered & plan of care reviewed with MADISON Baker.
[2019-07-15] MEDS: insulin glargine (Lantus) pen - multi-dose SQ SCH (19:45)
[2019-07-15 20:00] VITALS: BP 118/69
[2019-07-16] VITALS: BP 126/75
[2019-07-16] MEDS: ampicillin inj 2 GM in normal saline 100ml IV soln 100 ML IV SCH ×4 (01:10→22:09)
[2019-07-16] MEDS: ondansetron/PF 4mg/2ml inj IV PRN ×2 (04:21→14:54)
[2019-07-16 04:36] LABS: BASOPHILS # (AUTO) 0.1 X10'3 (0-0.2); EOSINOPHILS # (AUTO) 0.2 X10'3 (0-0.9); EOSINOPHILS % (AUTO) 2.6 % (0-6); HEMATOCRIT 36.2 % (42.0-52.0); HEMOGLOBIN 12.1 g/dl (14.0-17.9); LYMPHOCYTES # (AUTO) 1.4 X10'3 (1.1-4.8); LYMPHOCYTES % (AUTO) 14.5 % (21-51); MEAN CORPUSCULAR HEMOGLOBIN 32.1 PG (27.0-31.0); MEAN CORPUSCULAR HGB CONC 33.3 g/dL (33.0-36.5); MEAN CORPUSCULAR VOLUME 96.4 FL (78-98); MEAN PLATELET VOLUME 7.1 FL (7.4-10.4); MONOCYTES # (AUTO) 0.9 X10'3 (0-0.9); MONOCYTES % (AUTO) 9.6 % (2-12); NEUTROPHILS # (AUTO) 6.8 X10'3 (1.8-7.7); NEUTROPHILS % (AUTO) 72.3 % (42-75); PLATELET COUNT 466 X10'3 (140-440); RED BLOOD COUNT 3.75 X10'6 (4.70-6.10); RED CELL DISTRIBUTION WIDTH 13.9 % (11.5-14.5); WHITE BLOOD COUNT 9.4 X10'3 (4.5-11.0)
[2019-07-16 04:47] LABS: ALANINE AMINOTRANSFERASE 21 U/L (12-78); ALBUMIN 2.1 G/DL (3.4-5.0); ALBUMIN/GLOBULIN RATIO 0.5 (1.1-1.5); ALKALINE PHOSPHATASE 140 IU/L (46-116); ANION GAP 6 (8-16); ASPARTATE AMINO TRANSFERASE 32 U/L (10-37); BILIRUBIN,TOTAL 0.2 MG/DL (0.1-1.0); BLOOD UREA NITROGEN 15 MG/DL (7-18); BUN/CREATININE RATIO 14.7 (5.4-32.0); CALCIUM 8.5 MG/DL (8.5-10.1); CHLORIDE 102 MMOL/L (99-107); CREATININE 1.02 MG/DL (0.60-1.10); GLUCOSE 101 MG/DL (70-104); POTASSIUM 4.2 MMOL/L (3.5-5.1); SODIUM 138 MMOL/L (135-145); TOTAL CARBON DIOXIDE 30.4 MMOL/L (24-32); TOTAL PROTEIN 6.1 G/DL (6.4-8.2); eGFR 73 ML/MIN
[2019-07-16] MEDS: HYDROcodone/acetaminophen 5mg/325mg tablet PO PRN ×3 (05:38→22:11)
--- NOTE | 2019-07-16 06:00 | NUR ---
Patient in room [facility]. I have received report from MADISON Baker and had the opportunity to ask questions and assume patient care.
[2019-07-16 08:00] VITALS: BP 121/83
[2019-07-16] MEDS: lactose-reduced food (Ensure Enlive) - 237ml bottle PO SCH ×3 (08:00→18:29)
[2019-07-16] MEDS: K and/or MAG REPLACEMENT MC SCH ×2 (08:00→20:00)
[2019-07-16] MEDS: micafungin inj 100 MG in normal saline 100ml IV soln 100 ML IV SCH (09:24)
[2019-07-16] MEDS: normal saline 1000ml 1,000 ML IV SCH (09:24)
[2019-07-16] MEDS: pantoprazole 40 MG vial IV SCH (09:25)
[2019-07-16] MEDS: lactobacillus rhamnosus 10,000 MMU CELLS/CAPSULE PO SCH ×2 (09:25→22:10)
[2019-07-16] MEDS: multivitamins, therapeutics tablet PO SCH (09:25)
[2019-07-16] MEDS: furosemide 40mg tablet PO SCH (09:25)
[2019-07-16] MEDS: metroNIDAZOLE 500mg tablet PO SCH ×2 (09:25→22:10)
[2019-07-16] MEDS: heparin, porcine 5000 units/ml vial SQ SCH ×2 (09:26→22:11)
[2019-07-16 11:00] VITALS: BP 130/57
[2019-07-16] MEDS: levoFLOXACIN 750MG TABLET PO SCH (11:02)
--- NOTE | 2019-07-16 18:00 | NUR ---
Problems reprioritized. Patient report given, questions answered & plan of care reviewed with MADISON Dillard.
--- NOTE | 2019-07-16 18:30 | NUR ---
Patient in room [facility]. I have received report from MADISON Martinez and had the opportunity to ask questions and assume patient care with MADISON Bo. Addendum: 07/16/19 at 1940 by Abran Dillon RN Amended: Links added.
--- NOTE | 2019-07-16 18:42 | NUR ---
Patient in room [facility] 355. I have received report from Kathia WALLACE and had the opportunity to ask questions and assume patient care.
[2019-07-16 20:00] VITALS: BP 136/85
[2019-07-16] MEDS: insulin glargine (Lantus) pen - multi-dose SQ SCH (21:00)
[2019-07-17] VITALS: BP 117/73
[2019-07-17] MEDS: ampicillin inj 2 GM in normal saline 100ml IV soln 100 ML IV SCH ×4 (02:00→20:16)
--- NOTE | 2019-07-17 05:20 | NUR ---
0200 ampicillin dose missed. Addendum: 07/17/19 at 0520 by Abran Dillon RN Amended: Links added.
--- NOTE | 2019-07-17 05:31 | NUR ---
agree with nursing assessment Addendum: 07/17/19 at 0532 by Abran Dillon RN Amended: Links added.
[2019-07-17 05:51] LABS: BASOPHILS # (AUTO) 0.1 X10'3 (0-0.2); BASOPHILS % (AUTO) 0.7 % (0-1); EOSINOPHILS # (AUTO) 0.3 X10'3 (0-0.9); EOSINOPHILS % (AUTO) 3.4 % (0-6); HEMATOCRIT 39.9 % (42.0-52.0); HEMOGLOBIN 13.2 g/dl (14.0-17.9); LYMPHOCYTES # (AUTO) 1.4 X10'3 (1.1-4.8); LYMPHOCYTES % (AUTO) 18.9 % (21-51); MEAN CORPUSCULAR HEMOGLOBIN 31.8 PG (27.0-31.0); MEAN CORPUSCULAR HGB CONC 33.2 g/dL (33.0-36.5); MEAN CORPUSCULAR VOLUME 95.9 FL (78-98); MEAN PLATELET VOLUME 7.1 FL (7.4-10.4); MONOCYTES # (AUTO) 0.8 X10'3 (0-0.9); MONOCYTES % (AUTO) 10.6 % (2-12); NEUTROPHILS % (AUTO) 66.4 % (42-75); PLATELET COUNT 426 X10'3 (140-440); RED BLOOD COUNT 4.16 X10'6 (4.70-6.10); WHITE BLOOD COUNT 7.5 X10'3 (4.5-11.0)
[2019-07-17 06:26] LABS: ALANINE AMINOTRANSFERASE 17 U/L (12-78); ALBUMIN 2.2 G/DL (3.4-5.0); ALBUMIN/GLOBULIN RATIO 0.5 (1.1-1.5); ALKALINE PHOSPHATASE 138 IU/L (46-116); ANION GAP 9 (8-16); ASPARTATE AMINO TRANSFERASE 26 U/L (10-37); BILIRUBIN,TOTAL 0.2 MG/DL (0.1-1.0); BLOOD UREA NITROGEN 14 MG/DL (7-18); BUN/CREATININE RATIO 13.3 (5.4-32.0); CALCIUM 8.9 MG/DL (8.5-10.1); CHLORIDE 101 MMOL/L (99-107); CREATININE 1.05 MG/DL (0.60-1.10); GLUCOSE 103 MG/DL (70-104); MAGNESIUM 1.9 MG/DL (1.5-2.4); SODIUM 137 MMOL/L (135-145); TOTAL CARBON DIOXIDE 27.1 MMOL/L (24-32); TOTAL PROTEIN 6.6 G/DL (6.4-8.2); TRIGLYCERIDES 216 MG/DL (20-135); eGFR 71 ML/MIN
[2019-07-17 06:28] LABS: POTASSIUM 4.9 MMOL/L (3.5-5.1)
--- NOTE | 2019-07-17 06:32 | NUR ---
Problems reprioritized. Patient report given, questions answered & plan of care reviewed with Luanne RN.
[2019-07-17 07:02] LABS: LARGE PLATELETS FEW; PLATELET ESTIMATE NORMAL; TOTAL CELLS COUNTED 100
[2019-07-17] MEDS: ondansetron/PF 4mg/2ml inj IV PRN (07:37)
[2019-07-17 08:00] VITALS: BP 130/83
[2019-07-17] MEDS: lactose-reduced food (Ensure Enlive) - 237ml bottle PO SCH ×3 (08:00→18:32)
[2019-07-17] MEDS: K and/or MAG REPLACEMENT MC SCH ×2 (08:00→20:00)
[2019-07-17] MEDS: metroNIDAZOLE 500mg tablet PO SCH ×2 (08:46→20:17)
[2019-07-17] MEDS: pantoprazole 40 MG vial IV SCH (08:46)
[2019-07-17] MEDS: heparin, porcine 5000 units/ml vial SQ SCH ×2 (08:48→20:18)
[2019-07-17] MEDS: methylnaltrexone br 12mg/0.6ml inj***SubQ only SQ SCH (08:48)
[2019-07-17] MEDS: micafungin inj 100 MG in normal saline 100ml IV soln 100 ML IV SCH (08:49)
[2019-07-17] MEDS: furosemide 40mg tablet PO SCH (09:55)
[2019-07-17] MEDS: lactobacillus rhamnosus 10,000 MMU CELLS/CAPSULE PO SCH ×2 (09:55→20:17)
[2019-07-17] MEDS: multivitamins, therapeutics tablet PO SCH (09:55)
[2019-07-17] MEDS ORDERED: PEG 400/HYPROMELLOSE/GLYCERIN 15ml bottle EACHEYE PRN (10:20)
--- NOTE | 2019-07-17 11:17 | NUR ---
Reassessment: Pt NPO 07/[address] which was unremarkable per MD notes. Diet was advanced to regular rather than low fiber. Patient's PO intake slightly fluctuates however mostly averaging 75-100% PO intake. Pt with fluctuating PO intake of ONS, documented with 100% and 0%, however pt still meeting nutrient needs with PO intake of meals at this time. LBM 07/15 documented with 150 mL stool output per I&O. Will continue to follow closely and monitor need for further nutrition intervention. Recommend: 1. Continue regular diet 2. Monitor need for diet change to low fiber given recent GI surgery 3. Ensure Enlive TID 4. monitor ileostomy output 5. continue routine MVI 6. consider B12 supplementation post-op Addendum: 07/17/19 at [address] Amended: Links added.
[2019-07-17] MEDS: levoFLOXACIN 750MG TABLET PO SCH (11:47)
[2019-07-17] MEDS: HYDROcodone/acetaminophen 5mg/325mg tablet PO PRN ×2 (11:55→18:30)
[2019-07-17 12:00] VITALS: BP 109/68
[2019-07-17 18:00] VITALS: BP 134/85
--- NOTE | 2019-07-17 18:34 | NUR ---
Patient in room [facility]. I have received report from ERWIN WALLACE and had the opportunity to ask questions and assume patient care.
--- NOTE | 2019-07-17 18:39 | NUR ---
Problems reprioritized. Patient report given, questions answered & plan of care reviewed with MADISON Bo.
[2019-07-17] MEDS: insulin glargine (Lantus) pen - multi-dose SQ SCH (21:00)
[2019-07-18] VITALS: BP 126/65
[2019-07-18] MEDS: ampicillin inj 2 GM in normal saline 100ml IV soln 100 ML IV SCH ×4 (02:35→21:25)
[2019-07-18] MEDS: HYDROcodone/acetaminophen 5mg/325mg tablet PO PRN ×2 (02:59→21:27)
[2019-07-18] MEDS: ondansetron/PF 4mg/2ml inj IV PRN ×2 (03:00→17:32)
[2019-07-18 06:08] LABS: BASOPHILS # (AUTO) 0.1 X10'3 (0-0.2); BASOPHILS % (AUTO) 1.4 % (0-1); EOSINOPHILS # (AUTO) 0.2 X10'3 (0-0.9); HEMATOCRIT 37.9 % (42.0-52.0); HEMOGLOBIN 12.7 g/dl (14.0-17.9); LYMPHOCYTES # (AUTO) 1.4 X10'3 (1.1-4.8); LYMPHOCYTES % (AUTO) 17.1 % (21-51); MEAN CORPUSCULAR HEMOGLOBIN 32.2 PG (27.0-31.0); MEAN CORPUSCULAR HGB CONC 33.6 g/dL (33.0-36.5); MEAN CORPUSCULAR VOLUME 95.9 FL (78-98); MEAN PLATELET VOLUME 7.2 FL (7.4-10.4); MONOCYTES # (AUTO) 0.9 X10'3 (0-0.9); MONOCYTES % (AUTO) 11.1 % (2-12); NEUTROPHILS # (AUTO) 5.7 X10'3 (1.8-7.7); NEUTROPHILS % (AUTO) 68.4 % (42-75); PLATELET COUNT 454 X10'3 (140-440); RED BLOOD COUNT 3.95 X10'6 (4.70-6.10); WHITE BLOOD COUNT 8.3 X10'3 (4.5-11.0)
--- NOTE | 2019-07-18 06:28 | NUR ---
Problems reprioritized. Patient report given, questions answered & plan of care reviewed with Matilde RN.
[2019-07-18 06:30] VITALS: BP 130/87
--- NOTE | 2019-07-18 06:30 | NUR ---
Patient in room [facility] 355. I have received report from Betzy RN & Thais RN and had the opportunity to ask questions and assume patient care.
[2019-07-18 06:31] LABS: ALANINE AMINOTRANSFERASE 20 U/L (12-78); ALBUMIN 2.2 G/DL (3.4-5.0); ALBUMIN/GLOBULIN RATIO 0.5 (1.1-1.5); ALKALINE PHOSPHATASE 125 IU/L (46-116); ANION GAP 6 (8-16); ASPARTATE AMINO TRANSFERASE 23 U/L (10-37); BILIRUBIN,TOTAL 0.2 MG/DL (0.1-1.0); BLOOD UREA NITROGEN 11 MG/DL (7-18); BUN/CREATININE RATIO 10.3 (5.4-32.0); CALCIUM 8.6 MG/DL (8.5-10.1); CHLORIDE 101 MMOL/L (99-107); CREATININE 1.07 MG/DL (0.60-1.10); GLUCOSE 109 MG/DL (70-104); POTASSIUM 4.2 MMOL/L (3.5-5.1); SODIUM 135 MMOL/L (135-145); TOTAL CARBON DIOXIDE 28.5 MMOL/L (24-32); TOTAL PROTEIN 6.4 G/DL (6.4-8.2); eGFR 69 ML/MIN
[2019-07-18] MEDS: JUVEN Shake w/Arg/Glut/Ca2+Bmb (Juven 19.3gm) pkt 240ml PO SCH (07:30)
[2019-07-18] MEDS: K and/or MAG REPLACEMENT MC SCH ×2 (08:00→20:00)
[2019-07-18] MEDS: lactose-reduced food (Ensure Enlive) - 237ml bottle PO SCH ×3 (08:14→18:16)
[2019-07-18] MEDS: pantoprazole 40mg Tablet.DR PO SCH (09:08)
[2019-07-18] MEDS: lactobacillus rhamnosus 10,000 MMU CELLS/CAPSULE PO SCH ×2 (09:08→21:26)
[2019-07-18] MEDS: micafungin inj 100 MG in normal saline 100ml IV soln 100 ML IV SCH (09:08)
[2019-07-18] MEDS: multivitamins, therapeutics tablet PO SCH (09:08)
[2019-07-18] MEDS: metroNIDAZOLE 500mg tablet PO SCH ×2 (09:08→21:26)
[2019-07-18] MEDS: furosemide 40mg tablet PO SCH (09:09)
[2019-07-18] MEDS: heparin, porcine 5000 units/ml vial SQ SCH ×2 (09:09→21:27)
[2019-07-18 11:00] VITALS: BP 135/79
[2019-07-18] MEDS: levoFLOXACIN 750MG TABLET PO SCH (11:54)
--- NOTE | 2019-07-18 17:43 | NUR ---
Received TC from pt requesting RD visit. Pt seen at bedside and requests more variety with his meals. Pt would like yogurt TID as well as more frequent salads, fresh fruits/veggies and cold food such as cottage cheese, applesauce, shakes and smoothies. All preferences were d/w dietary. Pt states he is getting tired of the Ensure TID. Pt documented with 0% PO intake of ONS since lunch 07/15 however with 100% PO intake of ONS x 2 meals today. Pt with some fluctuating PO intake of meals, occasionally down to 25-50% however overall 75-100%. RD encouraged pt to continue with good PO intake of meals and if able to consistently consume roughly 75% of meals, Ensure Enlive may be discontinued. Pt has RD contact information. Encouraged pt to reach out for any further food preferences. Will remain available. Addendum: 07/18/19 at [address] Amended: Links added.
[2019-07-18 18:00] VITALS: BP 129/82
--- NOTE | 2019-07-18 18:20 | NUR ---
Problems reprioritized. Patient report given, questions answered & plan of care reviewed with MADISON Bo & Thais RN.
--- NOTE | 2019-07-18 19:36 | NUR ---
Patient in room [facility] 355. I have received report from RIGOBERTO WALLACE and had the opportunity to ask questions and assume patient care.
[2019-07-18] MEDS: insulin glargine (Lantus) pen - multi-dose SQ SCH (21:00)
[2019-07-19] VITALS: BP 120/75
[2019-07-19] MEDS: ampicillin inj 2 GM in normal saline 100ml IV soln 100 ML IV SCH ×4 (02:10→19:58)
--- NOTE | 2019-07-19 06:09 | NUR ---
Problems reprioritized. Patient report given, questions answered & plan of care reviewed with Matilde RN .
--- NOTE | 2019-07-19 06:25 | NUR ---
Patient in room [facility] 355. I have received report from Betzy RN & Thais RN and had the opportunity to ask questions and assume patient care.
[2019-07-19 06:30] VITALS: BP 135/82
[2019-07-19] MEDS: JUVEN Shake w/Arg/Glut/Ca2+Bmb (Juven 19.3gm) pkt 240ml PO SCH ×4 (07:30→17:33)
[2019-07-19] MEDS: methylnaltrexone br 12mg/0.6ml inj***SubQ only SQ SCH ×2 (07:55→08:00)
[2019-07-19] MEDS: lactobacillus rhamnosus 10,000 MMU CELLS/CAPSULE PO SCH ×2 (07:56→19:53)
[2019-07-19] MEDS: pantoprazole 40mg Tablet.DR PO SCH (07:56)
[2019-07-19] MEDS: heparin, porcine 5000 units/ml vial SQ SCH ×2 (07:56→19:55)
[2019-07-19] MEDS: furosemide 40mg tablet PO SCH (07:56)
[2019-07-19] MEDS: multivitamins, therapeutics tablet PO SCH (07:56)
[2019-07-19] MEDS: metroNIDAZOLE 500mg tablet PO SCH ×2 (07:56→19:54)
[2019-07-19] MEDS: lactose-reduced food (Ensure Enlive) - 237ml bottle PO SCH ×3 (08:07→17:33)
[2019-07-19] MEDS: micafungin inj 100 MG in normal saline 100ml IV soln 100 ML IV SCH (08:14)
[2019-07-19 08:18] LABS: BASOPHILS % (AUTO) 0.8 % (0-1); EOSINOPHILS # (AUTO) 0.1 X10'3 (0-0.9); EOSINOPHILS % (AUTO) 2.2 % (0-6); HEMOGLOBIN 13.5 g/dl (14.0-17.9); LYMPHOCYTES # (AUTO) 1.4 X10'3 (1.1-4.8); LYMPHOCYTES % (AUTO) 22.6 % (21-51); MEAN CORPUSCULAR HEMOGLOBIN 32.3 PG (27.0-31.0); MEAN CORPUSCULAR HGB CONC 33.7 g/dL (33.0-36.5); MEAN CORPUSCULAR VOLUME 95.7 FL (78-98); MEAN PLATELET VOLUME 7.2 FL (7.4-10.4); MONOCYTES # (AUTO) 0.7 X10'3 (0-0.9); MONOCYTES % (AUTO) 11.5 % (2-12); NEUTROPHILS # (AUTO) 3.9 X10'3 (1.8-7.7); NEUTROPHILS % (AUTO) 62.9 % (42-75); PLATELET COUNT 409 X10'3 (140-440); RED BLOOD COUNT 4.18 X10'6 (4.70-6.10); WHITE BLOOD COUNT 6.2 X10'3 (4.5-11.0)
[2019-07-19 08:39] LABS: ALANINE AMINOTRANSFERASE 21 U/L (12-78); ALBUMIN 2.3 G/DL (3.4-5.0); ALBUMIN/GLOBULIN RATIO 0.5 (1.1-1.5); ALKALINE PHOSPHATASE 125 IU/L (46-116); ANION GAP 5 (8-16); ASPARTATE AMINO TRANSFERASE 30 U/L (10-37); BILIRUBIN,TOTAL 0.2 MG/DL (0.1-1.0); BLOOD UREA NITROGEN 13 MG/DL (7-18); CALCIUM 9.2 MG/DL (8.5-10.1); CHLORIDE 102 MMOL/L (99-107); CREATININE 1.08 MG/DL (0.60-1.10); GLUCOSE 98 MG/DL (70-104); POTASSIUM 4.5 MMOL/L (3.5-5.1); SODIUM 136 MMOL/L (135-145); TOTAL CARBON DIOXIDE 29.5 MMOL/L (24-32); TOTAL PROTEIN 6.6 G/DL (6.4-8.2); eGFR 68 ML/MIN
[2019-07-19 08:50] LABS: TOTAL CELLS COUNTED 100
[2019-07-19 08:51] LABS: PLATELET ESTIMATE NORMAL
[2019-07-19] MEDS: K and/or MAG REPLACEMENT MC SCH ×2 (09:27→19:45)
[2019-07-19] MEDS: levoFLOXACIN 750MG TABLET PO SCH (11:27)
[2019-07-19 11:51] VITALS: BP 107/65
[2019-07-19 18:00] VITALS: BP 117/78
--- NOTE | 2019-07-19 18:35 | NUR ---
Problems reprioritized. Patient report given, questions answered & plan of care reviewed with MADISON Acosta.
--- NOTE | 2019-07-19 18:38 | NUR ---
Received report from primary care nurse Matilde RN. Assumed patient care. Patient is awake and alert on room air in no apparent distress on room air. Sitting up eating his dinner. Call light and items of frequent use within reach. Will continue to monitor for changes.
[2019-07-19] MEDS: HYDROcodone/acetaminophen 5mg/325mg tablet PO PRN (19:53)
[2019-07-19] MEDS: temazepam 15mg capsule PO PRN (19:54)
[2019-07-19] MEDS: insulin glargine (Lantus) pen - multi-dose SQ SCH (21:00)
[2019-07-20] VITALS: BP 128/81
[2019-07-20] MEDS: ampicillin inj 2 GM in normal saline 100ml IV soln 100 ML IV SCH ×4 (01:30→20:13)
[2019-07-20 05:35] LABS: BASOPHILS # (AUTO) 0.1 X10'3 (0-0.2); BASOPHILS % (AUTO) 1.5 % (0-1); EOSINOPHILS # (AUTO) 0.2 X10'3 (0-0.9); EOSINOPHILS % (AUTO) 2.7 % (0-6); HEMATOCRIT 38.3 % (42.0-52.0); HEMOGLOBIN 12.7 g/dl (14.0-17.9); LYMPHOCYTES # (AUTO) 1.5 X10'3 (1.1-4.8); LYMPHOCYTES % (AUTO) 21.1 % (21-51); MEAN CORPUSCULAR HEMOGLOBIN 31.9 PG (27.0-31.0); MEAN CORPUSCULAR HGB CONC 33.2 g/dL (33.0-36.5); MEAN CORPUSCULAR VOLUME 96.1 FL (78-98); MEAN PLATELET VOLUME 7.5 FL (7.4-10.4); MONOCYTES # (AUTO) 0.8 X10'3 (0-0.9); MONOCYTES % (AUTO) 11.1 % (2-12); NEUTROPHILS # (AUTO) 4.5 X10'3 (1.8-7.7); NEUTROPHILS % (AUTO) 63.6 % (42-75); PLATELET COUNT 428 X10'3 (140-440); RED BLOOD COUNT 3.98 X10'6 (4.70-6.10); RED CELL DISTRIBUTION WIDTH 13.8 % (11.5-14.5); WHITE BLOOD COUNT 7.1 X10'3 (4.5-11.0)
[2019-07-20 05:58] LABS: ALANINE AMINOTRANSFERASE 23 U/L (12-78); ALBUMIN 2.3 G/DL (3.4-5.0); ALBUMIN/GLOBULIN RATIO 0.6 (1.1-1.5); ALKALINE PHOSPHATASE 115 IU/L (46-116); ANION GAP 6 (8-16); ASPARTATE AMINO TRANSFERASE 23 U/L (10-37); BILIRUBIN,TOTAL 0.2 MG/DL (0.1-1.0); BLOOD UREA NITROGEN 11 MG/DL (7-18); BUN/CREATININE RATIO 10.9 (5.4-32.0); CALCIUM 8.9 MG/DL (8.5-10.1); CHLORIDE 102 MMOL/L (99-107); CREATININE 1.01 MG/DL (0.60-1.10); GLUCOSE 132 MG/DL (70-104); POTASSIUM 3.8 MMOL/L (3.5-5.1); SODIUM 138 MMOL/L (135-145); TOTAL CARBON DIOXIDE 29.7 MMOL/L (24-32); TOTAL PROTEIN 6.3 G/DL (6.4-8.2); TRIGLYCERIDES 208 MG/DL (20-135); eGFR 74 ML/MIN
[2019-07-20 06:08] LABS: ANISOCYTOSIS 1+; PLATELET ESTIMATE NORMAL; TOTAL CELLS COUNTED 100
--- NOTE | 2019-07-20 06:15 | NUR ---
Patient in room [facility] 355. I have received report from MADISON Acosta and had the opportunity to ask questions and assume patient care.
[2019-07-20 06:30] VITALS: BP 140/85
--- NOTE | 2019-07-20 06:30 | NUR ---
Reported off to Matilde RN. Patient is awake and alert on room air. In no apparent distress on room air. Call light and items of frequent use within reach.
[2019-07-20] MEDS: JUVEN Shake w/Arg/Glut/Ca2+Bmb (Juven 19.3gm) pkt 240ml PO SCH ×2 (07:09→17:48)
[2019-07-20] MEDS: lactose-reduced food (Ensure Enlive) - 237ml bottle PO SCH ×3 (07:10→17:48)
[2019-07-20] MEDS: K and/or MAG REPLACEMENT MC SCH ×2 (07:10→20:00)
[2019-07-20] MEDS: ondansetron/PF 4mg/2ml inj IV PRN (07:55)
[2019-07-20] MEDS: pantoprazole 40mg Tablet.DR PO SCH (09:07)
[2019-07-20] MEDS: micafungin inj 100 MG in normal saline 100ml IV soln 100 ML IV SCH (09:07)
[2019-07-20] MEDS: lactobacillus rhamnosus 10,000 MMU CELLS/CAPSULE PO SCH ×2 (09:07→20:13)
[2019-07-20] MEDS: metroNIDAZOLE 500mg tablet PO SCH ×2 (09:07→20:13)
[2019-07-20] MEDS: multivitamins, therapeutics tablet PO SCH (09:07)
[2019-07-20] MEDS: furosemide 40mg tablet PO SCH (09:07)
[2019-07-20] MEDS: heparin, porcine 5000 units/ml vial SQ SCH ×2 (09:08→20:14)
[2019-07-20 11:00] VITALS: BP 140/74
[2019-07-20] MEDS: levoFLOXACIN 750MG TABLET PO SCH (11:32)
--- NOTE | 2019-07-20 18:15 | NUR ---
Problems reprioritized. Patient report given, questions answered & plan of care reviewed with MADISON Alegria.
--- NOTE | 2019-07-20 18:31 | NUR ---
Patient in room [facility]. I have received report from MADISON Clayton and had the opportunity to ask questions and assume patient care.
[2019-07-20 20:00] VITALS: BP 128/89
[2019-07-20] MEDS: temazepam 15mg capsule PO PRN ×2 (20:13→22:36)
[2019-07-20] MEDS: HYDROcodone/acetaminophen 5mg/325mg tablet PO PRN (20:23)
[2019-07-20 23:22] VITALS: BP 119/73
[2019-07-21] MEDS: ampicillin inj 2 GM in normal saline 100ml IV soln 100 ML IV SCH ×4 (01:35→19:55)
--- NOTE | 2019-07-21 06:38 | NUR ---
Problems reprioritized. Patient report given, questions answered & plan of care reviewed with MADISON Perrin.
--- NOTE | 2019-07-21 07:02 | NUR ---
Patient in room [facility]. I have received report from Airam Curran and had the opportunity to ask questions and assume patient care.
[2019-07-21] MEDS: JUVEN Shake w/Arg/Glut/Ca2+Bmb (Juven 19.3gm) pkt 240ml PO SCH ×2 (07:30→17:42)
[2019-07-21 08:00] VITALS: BP 135/87
[2019-07-21] MEDS: lactose-reduced food (Ensure Enlive) - 237ml bottle PO SCH ×3 (08:00→19:57)
[2019-07-21] MEDS: K and/or MAG REPLACEMENT MC SCH ×2 (08:00→20:00)
[2019-07-21] MEDS: metroNIDAZOLE 500mg tablet PO SCH ×2 (09:31→19:51)
[2019-07-21] MEDS: pantoprazole 40mg Tablet.DR PO SCH (09:31)
[2019-07-21] MEDS: lactobacillus rhamnosus 10,000 MMU CELLS/CAPSULE PO SCH ×2 (09:31→19:50)
[2019-07-21] MEDS: multivitamins, therapeutics tablet PO SCH (09:31)
[2019-07-21] MEDS: furosemide 40mg tablet PO SCH (09:31)
[2019-07-21] MEDS: methylnaltrexone br 12mg/0.6ml inj***SubQ only SQ SCH (09:32)
[2019-07-21] MEDS: heparin, porcine 5000 units/ml vial SQ SCH ×2 (09:33→19:53)
[2019-07-21] MEDS: micafungin inj 100 MG in normal saline 100ml IV soln 100 ML IV SCH (09:34)
[2019-07-21] MEDS: ondansetron/PF 4mg/2ml inj IV PRN (09:34)
[2019-07-21 11:00] VITALS: BP 139/76
[2019-07-21] MEDS: levoFLOXACIN 750MG TABLET PO SCH (11:24)
--- NOTE | 2019-07-21 14:57 | NUR ---
Reassessment: Patient is eating well despite intermittent nausea, is eating 75% average of meals in the past five days with some 50% and some 100%. Appetite is good. Drinking 75-100% of ensure enlive and Adrian shakes BID with breakfast and dinner (started receiving on 07/18). Also receiving yogurt TID. Pt states he is getting tired of the Ensure TID, however continues to consume it. RD encouraged pt to continue with good PO intake of meals and if able to consistently consume roughly 75% of meals, Ensure Enlive may be discontinued if he requests it. Pt has RD contact information. Encouraged pt to reach out for any further food preferences. Recommend: 1. Continue regular diet 2. Monitor need for diet change to low fiber given recent GI surgery 3. Ensure Enlive TID, Adrian BID with breakfast and dinner 4. monitor ileostomy output 5. continue routine MVI Addendum: 07/21/19 at [address] Amended: Links added.
--- NOTE | 2019-07-21 18:43 | NUR ---
Problems reprioritized. Patient report given, questions answered & plan of care reviewed with Stella WALLACE.
--- NOTE | 2019-07-21 18:45 | NUR ---
Patient in room [facility]. I have received report from Marychuy WALLACE and had the opportunity to ask questions and assume patient care.
[2019-07-21] MEDS: HYDROcodone/acetaminophen 5mg/325mg tablet PO PRN (19:50)
[2019-07-21 20:00] VITALS: BP 124/74
[2019-07-22] VITALS: BP 117/70
[2019-07-22] MEDS: ampicillin inj 2 GM in normal saline 100ml IV soln 100 ML IV SCH ×4 (01:33→19:55)
--- NOTE | 2019-07-22 06:40 | NUR ---
Reported off to Marychuy WALLACE. 20cc serosang to Left ostomy bag and patient is empting his own ileostomy which has brown formed stools.
--- NOTE | 2019-07-22 06:41 | NUR ---
Patient in room [facility]. I have received report from Stella Curran and had the opportunity to ask questions and assume patient care.
[2019-07-22 08:00] VITALS: BP 119/83
[2019-07-22] MEDS: K and/or MAG REPLACEMENT MC SCH (08:00)
[2019-07-22] MEDS: pantoprazole 40mg Tablet.DR PO SCH (08:20)
[2019-07-22] MEDS: lactobacillus rhamnosus 10,000 MMU CELLS/CAPSULE PO SCH ×2 (08:20→19:58)
[2019-07-22] MEDS: multivitamins, therapeutics tablet PO SCH (08:21)
[2019-07-22] MEDS: furosemide 40mg tablet PO SCH (08:21)
[2019-07-22] MEDS: ondansetron/PF 4mg/2ml inj IV PRN (08:22)
[2019-07-22] MEDS: heparin, porcine 5000 units/ml vial SQ SCH ×2 (08:22→19:59)
[2019-07-22] MEDS: micafungin inj 100 MG in normal saline 100ml IV soln 100 ML IV SCH (08:27)
[2019-07-22] MEDS: metroNIDAZOLE 500mg tablet PO SCH ×2 (08:27→19:59)
[2019-07-22] MEDS: lactose-reduced food (Ensure Enlive) - 237ml bottle PO SCH ×3 (08:27→18:00)
[2019-07-22] MEDS: JUVEN Shake w/Arg/Glut/Ca2+Bmb (Juven 19.3gm) pkt 240ml PO SCH ×2 (08:28→15:12)
[2019-07-22 11:00] VITALS: BP 114/66
[2019-07-22] MEDS: levoFLOXACIN 750MG TABLET PO SCH (14:05)
[2019-07-22] MEDS: HYDROcodone/acetaminophen 5mg/325mg tablet PO PRN ×2 (14:06→20:00)
--- NOTE | 2019-07-22 18:40 | NUR ---
Patient in room [facility]. I have received report from Alla lloyd and had the opportunity to ask questions and assume patient care.
--- NOTE | 2019-07-22 18:41 | NUR ---
Problems reprioritized. Patient report given, questions answered & plan of care reviewed with Stella WALLACE.
[2019-07-22 20:00] VITALS: BP 135/88
[2019-07-22] MEDS: diatr meglu/diatrizoate 30ml oral sol.-(3 dose) bottle PO SCH (21:23)
[2019-07-23] VITALS: BP 116/73
[2019-07-23] MEDS: temazepam 15mg capsule PO PRN (01:44)
[2019-07-23] MEDS: ampicillin inj 2 GM in normal saline 100ml IV soln 100 ML IV SCH ×3 (01:45→15:08)
--- NOTE | 2019-07-23 06:20 | NUR ---
Problems reprioritized. Patient report given, questions answered & plan of care reviewed with Bing WALLACE.
[2019-07-23 07:15] VITALS: BP 131/77
[2019-07-23] MEDS: diatr meglu/diatrizoate 30ml oral sol.-(3 dose) bottle PO SCH ×2 (07:22→09:28)
[2019-07-23] MEDS: ondansetron/PF 4mg/2ml inj IV PRN ×2 (07:26→14:56)
[2019-07-23] MEDS: JUVEN Shake w/Arg/Glut/Ca2+Bmb (Juven 19.3gm) pkt 240ml PO SCH ×2 (07:30→17:56)
[2019-07-23] MEDS: pantoprazole 40mg Tablet.DR PO SCH ×2 (07:30→11:18)
[2019-07-23] MEDS: micafungin inj 100 MG in normal saline 100ml IV soln 100 ML IV SCH (07:35)
[2019-07-23] MEDS: lactose-reduced food (Ensure Enlive) - 237ml bottle PO SCH ×3 (07:48→17:56)
[2019-07-23] MEDS: methylnaltrexone br 12mg/0.6ml inj***SubQ only SQ SCH (07:49)
[2019-07-23] MEDS: multivitamins, therapeutics tablet PO SCH ×2 (08:00→11:18)
[2019-07-23] MEDS: lactobacillus rhamnosus 10,000 MMU CELLS/CAPSULE PO SCH ×3 (08:00→19:12)
[2019-07-23] MEDS: metroNIDAZOLE 500mg tablet PO SCH ×3 (08:00→19:12)
[2019-07-23] MEDS: heparin, porcine 5000 units/ml vial SQ SCH ×2 (08:00→19:14)
[2019-07-23] MEDS: furosemide 40mg tablet PO SCH ×2 (08:00→11:18)
[2019-07-23] MEDS ORDERED: iohexol 300mg/ml 100ml inj. ONE (09:26)
[2019-07-23] MEDS: levoFLOXACIN 750MG TABLET PO SCH (11:18)
[2019-07-23 12:00] VITALS: BP 109/74
--- NOTE | 2019-07-23 17:48 | NUR ---
Attempted to change patients midline dressing. he refused stating "no thanks, ill wait for the next shift"
--- NOTE | 2019-07-23 18:11 | NUR ---
Problems reprioritized. Patient report given, questions answered & plan of care reviewed with MADISON PAK.
--- NOTE | 2019-07-23 18:20 | NUR ---
Patient in room [facility]. I have received report from Bing WALLACE and had the opportunity to ask questions and assume patient care.
[2019-07-23] MEDS: HYDROcodone/acetaminophen 5mg/325mg tablet PO PRN (19:13)
[2019-07-23 20:00] VITALS: BP 154/85
[2019-07-24] VITALS: BP 111/70
[2019-07-24] MEDS: ondansetron/PF 4mg/2ml inj IV PRN (04:46)
[2019-07-24] MEDS: ampicillin inj 2 GM in normal saline 100ml IV soln 100 ML IV SCH ×5 (04:56→19:28)
--- NOTE | 2019-07-24 04:58 | NUR ---
07/23/191999 IV Ampicillin missed dose.
--- NOTE | 2019-07-24 06:59 | NUR ---
Problems reprioritized. Patient report given, questions answered & plan of care reviewed with Bing WALLACE.
--- NOTE | 2019-07-24 07:14 | NUR ---
I have received report Patient in room [facility]. I have received report from and had the opportunity to ask questions and assume patient care.
[2019-07-24] MEDS: JUVEN Shake w/Arg/Glut/Ca2+Bmb (Juven 19.3gm) pkt 240ml PO SCH ×2 (07:30→17:39)
[2019-07-24 07:32] VITALS: BP 125/85
[2019-07-24] MEDS: lactose-reduced food (Ensure Enlive) - 237ml bottle PO SCH ×3 (08:23→18:13)
[2019-07-24] MEDS: furosemide 40mg tablet PO SCH (08:26)
[2019-07-24] MEDS: metroNIDAZOLE 500mg tablet PO SCH ×2 (08:28→19:28)
[2019-07-24] MEDS: lactobacillus rhamnosus 10,000 MMU CELLS/CAPSULE PO SCH ×2 (08:28→19:28)
[2019-07-24] MEDS: multivitamins, therapeutics tablet PO SCH (08:28)
[2019-07-24] MEDS: pantoprazole 40mg Tablet.DR PO SCH (08:28)
[2019-07-24] MEDS: heparin, porcine 5000 units/ml vial SQ SCH (08:31)
[2019-07-24] MEDS: micafungin inj 100 MG in normal saline 100ml IV soln 100 ML IV SCH (08:37)
--- NOTE | 2019-07-24 09:26 | NUR ---
Spoke with pharmacist regarding missed ampicillin dose on noc shift. He stated that there were two doses given in a short amount of time and he would like me to give the 1400 dose on normal schedule and get everything back on time.
[2019-07-24] MEDS: levoFLOXACIN 750MG TABLET PO SCH (10:26)
[2019-07-24] MEDS: HYDROcodone/acetaminophen 5mg/325mg tablet PO PRN ×2 (10:51→19:28)
[2019-07-24 12:17] VITALS: BP 125/80
--- NOTE | 2019-07-24 14:26 | NUR ---
PAGER ID: [phone] MESSAGE: Julianne Saucedo: is patient discharging today? Last we spoke you were waiting for Dr. Terry approval? needing an update on plan! [phone]
--- NOTE | 2019-07-24 17:14 | NUR ---
Spoke with shaving machine operator. Was told if patient had an address that she could sign him up for a program that will get him supplies. The address that the patient gave me is to his long time friend and is listed below: [address], [place] [address]
--- NOTE | 2019-07-24 17:25 | NUR ---
Student documentation: I have reviewed all interventions, assessments performed and documented by Cb SHETTY from [facility] . Student Medication Administration: For all medication-passes, medications were reviewed, dispensed, administered and documented per hospital policy by Cb SHETTY form [facility].
[2019-07-24 18:00] VITALS: BP 130/83
--- NOTE | 2019-07-24 18:13 | NUR ---
Patient has clothes and wound care/ostomy supplies at bedside he is aware of dressing changes and how to care for ostomy. patient also has new shoes that were delivered to him today as well.
--- NOTE | 2019-07-24 18:14 | NUR ---
Problems reprioritized. Patient report given, questions answered & plan of care reviewed with MADISON Valdovinos.
--- NOTE | 2019-07-24 18:30 | NUR ---
Patient in room [facility]. I have received report from Bing WALLACE and had the opportunity to ask questions and assume patient care.
[2019-07-25] VITALS: BP 130/75
[2019-07-25] MEDS: HYDROcodone/acetaminophen 5mg/325mg tablet PO PRN (01:15)
[2019-07-25] MEDS ORDERED: ondansetron 4mg rapidly disintigrating tab PO ONE (01:20)
--- NOTE | 2019-07-25 01:30 | NUR ---
Patient educated of how to properly change colostomy bag, wound dressing care and infection control measures. Taught patient of signs and symptoms of infection when to notify MD. Instructions given to follow up with MD. Colostomy and wound dressing supplies given to patient. Patient demonstrated and verbalized understanding of teachings provided and follow up discharge instructions. PICC line removed with tip intact at 0030, patient tolerated procedure well. All questions answered, all needs met. Cab was called for patient's transportation and [employer] ticket given for patient to [place]. Patient dressed and ambulates independently. Patient stable with VS WNL at discharge. Staff ambulated with patient to [facility].
--- NOTE | 2019-07-25 09:00 | NUR ---
banking services officer (front end web developer in [facility]) called to state a package was delivered with a label stating it was from a [employer]. manager of financial reporting, Jacqui, was notified, and recommended [facility] process improvement specialist transport box to the mailing machine operator to be sent to the contact address pt requested we use for his skin/stoma supplies (c/o [address], [address], [place] [address]). Fuel Truck Driver was notified.
== END 2019-07-25 01:30 | disposition home or self-care (01) | DRG 329 ==
LOC: ER 15:04 → ED HOLD 16:36 → EDBEDREQ 17:16 → ORTHO 4S 18:30 → CICU 2S 06-21 18:56 → SUR 3N 07-01 15:13
PROVIDERS: ADMIT Internal Medicine; ATTEND Internal Medicine
PROC: 0DTG0ZZ Resection of Left Large Intestine, Open Approach (ICD-10-PCS; 2019-06-21)
PROC: 0DTN0ZZ Resection of Sigmoid Colon, Open Approach (ICD-10-PCS; 2019-06-21)
PROC: 5A1955Z Respiratory Ventilation, Greater than 96 Consecutive Hours (ICD-10-PCS; 2019-06-21)
PROC: 0DJD8ZZ Inspection of Lower Intestinal Tract, Via Natural or Artificial Opening Endoscopic (ICD-10-PCS; 2019-06-21)
PROC: 0D9670Z Drainage of Stomach with Drainage Device, Via Natural or Artificial Opening (ICD-10-PCS; 2019-06-21)
PROC: 03HY32Z Insertion of Monitoring Device into Upper Artery, Percutaneous Approach (ICD-10-PCS; 2019-06-21)
PROC: 0DTF0ZZ Resection of Right Large Intestine, Open Approach (ICD-10-PCS; principal; 2019-06-21 16:36)
PROC: 0D1B0Z4 Bypass Ileum to Cutaneous, Open Approach (ICD-10-PCS; 2019-06-23)
PROC: 02HV33Z Insertion of Infusion Device into Superior Vena Cava, Percutaneous Approach (ICD-10-PCS; 2019-06-25)
PROC: B548ZZA Ultrasonography of Superior Vena Cava, Guidance (ICD-10-PCS; 2019-06-25)
PROC: 0W9F30Z Drainage of Abdominal Wall with Drainage Device, Percutaneous Approach (ICD-10-PCS; 2019-07-04)
PROC: 0WQFXZ2 Repair Abdominal Wall, Stoma, External Approach (ICD-10-PCS; 2019-07-05)
PROC: 02HV33Z Insertion of Infusion Device into Superior Vena Cava, Percutaneous Approach (ICD-10-PCS; 2019-07-07)
PROC: B548ZZA Ultrasonography of Superior Vena Cava, Guidance (ICD-10-PCS; 2019-07-07)
PROC: BW211ZZ Computerized Tomography (CT Scan) of Abdomen and Pelvis using Low Osmolar Contrast (ICD-10-PCS; 2019-07-15)
PROC: BW211ZZ Computerized Tomography (CT Scan) of Abdomen and Pelvis using Low Osmolar Contrast (ICD-10-PCS; 2019-07-23)
DX: K56.690 Other partial intestinal obstruction (principal); J96.00 Acute respiratory failure, unspecified whether with hypoxia or hypercapnia; K65.0 Generalized (acute) peritonitis; K65.1 Peritoneal abscess; E87.1 Hypo-osmolality and hyponatremia; K57.80 Diverticulitis of intestine, part unspecified, with perforation and abscess without bleeding; T81.31XA Disruption of external operation (surgical) wound, not elsewhere classified, initial encounter; E87.6 Hypokalemia; R03.0 Elevated blood-pressure reading, without diagnosis of hypertension; B95.2 Enterococcus as the cause of diseases classified elsewhere; E11.22 Type 2 diabetes mellitus with diabetic chronic kidney disease; E66.9 Obesity, unspecified; B96.1 Klebsiella pneumoniae [K. pneumoniae] as the cause of diseases classified elsewhere; N18.3 Chronic kidney disease, stage 3 (moderate); F12.90 Cannabis use, unspecified, uncomplicated; K66.0 Peritoneal adhesions (postprocedural) (postinfection); E86.0 Dehydration; K21.9 Gastro-esophageal reflux disease without esophagitis; Z59.0 Homelessness; Z68.27 Body mass index [BMI] 27.0-27.9, adult
CPT/HCPCS: 36573; 45378; 49406; 99285; Z7506; Z7508; 36415; 36600; 71045; 74018; 74176; 74177; 76937; 80048; 80053; 81001; 82803; 82948; 83036; 83605; 83735; 84100; 84132; 84134; 84145; 84153; 84154; 84478; 84560; 85018; 85025; 85610; 85730; 86885; 86900; 86901; 86920; 87040; 87070; 87075; 87077; 87081; 87088; 87102; 87186; 93005; 94002; 94003; 94640; 94760; 97110; 97116; 97161; 97164; 97530; 97535; 99152; A4215; A4421; A4618; A4620; A6253; A6258; A6407; A6446; A6449; A7000; C1758; C9113; C9290; C9399; G0378; J0131; J0290; J0694; J0696; J1100; J1170; J1265; J1580; J1644; J1815; J1940; J1956; J2001; J2212; J2248; J2250; J2270; J2405; J2543; J2704; J3010; J3480; J3490; J7030; J7040; J7060; J7120; P9045; P9047; Q9963; Q9967